=== PATIENT | female | born 1960 | race Caucasian/White ===

== ENCOUNTER 2017-08-18 07:43 | Emergency (ER) | payer BC, SELFPAY ==
[2017-08-18 07:44] VITALS: BP 140/76; PULSE 106; RESP 16; TEMP 36.7; O2SAT 99; BMI 25.2
--- NOTE | 2017-08-18 08:20 | RAD_ITS ---
STUDY: X-RAY - RIGHT FOOT CLINICAL: Female, 57 years old. Right foot pain, no known injury TECHNIQUE: 3 view(s) of the foot. COMPARISON: None. FINDINGS: Normal talus, calcaneus, and tarsal bones. Normal visualized subtalar, talonavicular, calcaneocuboid, tarsal and tarsometatarsal articulations. Normal metatarsi. Normal metatarsophalangeal joint of the great toe. Normal tibial and fibular sesamoid bones. Normal interphalangeal joint of the great toe. Normal phalanges of the great toe. Normal second through fifth metatarsophalangeal joints. Normal interphalangeal joints and phalanges of the lesser toes. The soft tissue structures are unremarkable. RAD/Foot min 3 Views IMPRESSION: Normal x-ray examination of the foot. Electronically Signed: Alex Driver DO at 8:53 EDT Tel , Service support ,
[2017-08-18] MEDS: Naproxen 500 MG Tablet PO (08:25)
--- NOTE | 2017-08-18 09:03 | ED.DCSUM_ITS ---
- ER Visit Summary Date of Service: 08/18/17 Chief Complaint: [] Right foot pain History of Present Illness: The patient is a 57 F [] complaining of right foot pain, atraumatic. Denies injury or increased physical activity. Denies hx of gout. Physical Examination: [] Mild pain on the right medial plantar surface of the foot. No signs of infection, erythema, warmth, bruising. Neurovascular intact distally with good cap refill to the toes. Test Results: [] X-rays right foot: Negative. Emergency Department Course and Treatment: [] Given naproxen orally for analgesia and right foot x-ray which was negative. Patient was encouraged to follow with her PCP and wear foot insoles. Treatment Plan: [] Follow-up with PCP. Disposition: [] Discharge, stable. Impression: [] Right foot pain This note was generated with [employer] dictation software. It may contain incorrect words, spelling, and punctuation that were not noted in review of the chart prior to signing ED Disposition - Plan for ED Patient: Chief Complaint: Lower Extremity Injury Referrals: Amisha Sifuentes [Primary Care Provider] -
--- NOTE | 2017-08-18 09:03 | ED.DEP ---
ED Disposition - Plan for ED Patient: Disposition: Home or Assisted Living Chief Complaint: Lower Extremity Injury Instructions: ED Sprain Foot Prescriptions: Naproxen 500 mg PO BID PRN PRN #20 tab PRN Reason: Pain Referrals: Amisha Sifuentes [Primary Care Provider] -
[2017-08-18 09:14] VITALS: PULSE 85; RESP 16; O2SAT 98
--- NOTE | 2017-08-18 09:15 | ED.RN ---
THIS NURSE REVIEWED D/C INSTRUCTIONS WITH PT. PT VERBALIZED UNDERSTANDING OF INSTRUCTIONS. PT DENIES FURTHER NEEDS OR QUESTIONS AT THIS TIME. PT AMBULATES FROM ROOM ON OWN WITHOUT ASSISTANCE FROM STAFF
== END 2017-08-18 09:16 | disposition home or self-care (01) ==
PROVIDERS: Emergency Provider Emergency Medicine
DX: M79.671 Pain in right foot (principal)
CPT/HCPCS: 73630; 99283

== ENCOUNTER 2017-11-01 14:47 | Emergency (ER) | payer BC, SELFPAY ==
[2017-11-01 14:49] VITALS: BP 119/72; PULSE 90; RESP 18; TEMP 36.3; O2SAT 95; BMI 23.2
--- NOTE | 2017-11-01 15:54 | ED.DCSUM_ITS ---
- ER Visit Summary Date of Service: 11/01/17 Chief Complaint: Back pain History of Present Illness: The patient is a 57 F presenting with back pain. She states that she has pain on both sides of her back and pain radiates down her left leg. She states yesterday she was making her bed and twisted and this caused her chronic back pain to flare up. She also does a lot of twisting while at work. She states that she did not injure her back at work. She is able to ambulate. She has no bowel or bladder incontinence. No numbness or weakness. Denies fever or other complaints. Physical Examination: Vitals are stable. Patient is afebrile. Alert no acute distress. HEENT exam is unremarkable. Neck is supple. Lungs are clear and equal bilaterally. Heart is regular rate and rhythm. Abdomen is soft nontender nondistended. Back: Bilateral paraspinal lumbar muscle tenderness, no midline tenderness Extremities are unremarkable. Skin is warm and dry. No focal neurologic deficit. Normal strength and sensation Remainder of exam is unremarkable. Emergency Department Course and Treatment: Patient is given Toradol, Norflex IM. She is given prescription for Naprosyn and Flexeril. Advised to follow-up with her primary care physician. Advised return to ED if worsening complaints. Disposition: Discharge home Impression: Acute on chronic back pain This note was generated with [employer] dictation software. It may contain incorrect words, spelling, and punctuation that were not noted in review of the chart prior to signing ED Disposition - Plan for ED Patient: Chief Complaint: Back Referrals: Care Physician,No Primary [Primary Care Provider] -
--- NOTE | 2017-11-01 15:54 | ED.DEP ---
ED Disposition - Plan for ED Patient: Chief Complaint: Back Instructions: ED Neck Back Pain General Prescriptions: Naproxen [Naprosyn] 500 mg PO BID PRN #20 tablet Cyclobenzaprine [Flexeril] 10 mg PO TID PRN #20 tablet PRN Reason: Muscle Spasm Referrals: Care Physician,No Primary [Primary Care Provider] - Lucio Gorman MD [NON-STAFF] -
[2017-11-01] MEDS: Orphenadrine 60 MG/2 ML Ampul IM (16:04)
[2017-11-01] MEDS: Ketorolac 60 MG/2 ML Vial IM (16:04)
[2017-11-01 16:10] VITALS: PULSE 85; RESP 18; O2SAT 99
== END 2017-11-01 16:32 | disposition home or self-care (01) ==
PROVIDERS: Emergency Provider Emergency Medicine
DX: M54.5 Low back pain (principal); G89.29 Other chronic pain; X50.1XXA Overexertion from prolonged static or awkward postures, initial encounter; Y93.9 Activity, unspecified; Y92.9 Unspecified place or not applicable; Z86.79 Personal history of other diseases of the circulatory system; Z72.0 Tobacco use
CPT/HCPCS: 96372; 99283

== ENCOUNTER → 2017-12-16 11:09 | Outpatient (CLI) | payer OTHER, SELFPAY ==
--- NOTE | 2017-12-16 11:12 | RAD_ITS ---
STUDY: X-RAY - RIGHT HAND REASON FOR EXAM: Female, 57 years old. Abrasion overlying the base of the fifth metacarpal. TECHNIQUE: 3 view(s) of the hand. COMPARISON: None. FINDINGS: Normal radiocarpal articulation. Normal distal radioulnar joint. Normal visualized carpal bones. Normal carpal articulations Normal carpometacarpal articulation of the thumb. Normal second through fifth carpometacarpal joints. Normal metacarpi. Normal metacarpophalangeal joint of the thumb. Normal interphalangeal joint of the thumb. Normal proximal and distal phalanges of the thumb. Normal metacarpophalangeal joints of the second through fifth fingers. Normal proximal and distal interphalangeal joints of the second through fifth fingers. Normal phalanges of the second through fifth fingers. The soft tissue structures are unremarkable. RAD/Hand Min 3 Views IMPRESSION: Normal x-ray examination of the hand. Electronically Signed: Luiz Crain MD at 11:28 EDT Tel [phone], Service support ,
== END ==
PROVIDERS: Family Provider Family Medicine; PCP Family Medicine; Visit Provider Physician Assistant Medical
DX: S60.221A Contusion of right hand, initial encounter (principal)
CPT/HCPCS: 73130

== ENCOUNTER 2018-06-05 20:05 | Emergency (ER) | payer BC, SELFPAY ==
[2018-06-05 20:06] VITALS: BP 153/78; PULSE 108; RESP 16; TEMP 37.2; O2SAT 96; BMI 24.6
[2018-06-05] MEDS: Benzonatate 100 MG Capsule PO (20:35)
[2018-06-05] MEDS: predniSONE 20 MG Tablet 40 MG PO (20:35)
--- NOTE | 2018-06-05 20:45 | RAD_ITS ---
STUDY: X-RAY CHEST REASON FOR EXAM: Female, 58 years old. Cold symptoms and cough TECHNIQUE: PA and lateral views of the chest. COMPARISON: 09/18/2013 FINDINGS: The lungs are clear and expanded. There is no demonstrated pleural abnormality. Normal size heart. Normal mediastinum and macie. Normal visualized pulmonary arteries. Normal visualized aortic arch and descending thoracic aorta. Normal visualized thoracic spine. Normal visualized ribs, clavicles, and shoulders. There is no demonstrated abnormality of the visualized soft tissue structures of the upper abdomen. RAD/Chest PA and Lateral IMPRESSION: Normal x-ray examination of the chest. Electronically Signed: Alex Driver DO at 21:00 EST Tel , Service support ,
--- NOTE | 2018-06-05 20:50 | CM.ED ---
Social Work Note Referral from RN for concerns with heat and electricity. Pt reports that her heat was recently turned off. Face to face with the pt and her daughter. Introduced self and role at [facility]. The pt reports that she has been heating her apartment with a generator as her electricity was recently turned off. She states that they do have two dogs, but they all wrap up in blankets. Claim she goes to her sisters during the day to get out of the cold and then she works 3rd shift and her daughter stays with family to get out of the cold. Daughter is an adult as well. Pt claims that she has AEP for an [place]. Educate to their neighbor to neighbor program as an additional resource that the income guideline is $50,312 annually and pt reports that she and her daughter together make approximately $43k. Encourage her to reach out to them as soon as possible for assistance. Also educate to [employer] and [employer] and the pt reports that both of them have denied to help her d/t income. Discuss that [employer] is also opening their gymnasium at night to provide retirement from the cold for individuals without heat or that are homeless. Pt being taken down for imaging at this time. Again strongly encourage her to reach out to [employer] at her earliest convenience, and no further needs expressed at this time. This specifications writer to continue to follow and assist as needed. PLAN: Discharge home with support of family. Alta Olivares, VARNISH INSPECTOR, JACQUE
[2018-06-05 20:58] VITALS: PULSE 94; RESP 20
[2018-06-05] MEDS: Ipratropium/Albuterol Sulfate 3 ML AMPUL.NEB INHALATION (20:58)
--- NOTE | 2018-06-05 21:18 | ED.DCSUM_ITS ---
- ER Visit Summary Date of Service: 06/05/18 Chief Complaint: Cough History of Present Illness: The patient is a 58 F who developed cough yesterday. She is bringing up white phlegm. She denies fever but has noted chills. She does feels if she is wheezing. She reports a known history of asthma or COPD. She does not use inhalers. Physical Examination: Vital signs gross unremarkable. Patient sitting upright in bed no acute distress. Head neck examination unremarkable. Heart is regular rate and rhythm. Lungs sounds are grossly clear. Abdomen is soft nontender. Test Results: Two-view chest x-ray unremarkable. Emergency Department Course and Treatment: Patient given DuoNeb treatment along with p.o. prednisone and Tessalon Perles. On repeat evaluation she does feel improved. She has better air movement on auscultation. She will be given prescription for albuterol inhaler, prednisone, and Tessalon Perles. Treatment Plan: [] Disposition: Discharge Impression: Viral URI with COPD flare This note was generated with [employer] dictation software. It may contain incorrect words, spelling, and punctuation that were not noted in review of the chart prior to signing ED Disposition - Plan for ED Patient: Chief Complaint: Cold Sx Referrals: Lucio Stock MD [Primary Care Provider] -
--- NOTE | 2018-06-05 21:18 | ED.DEP ---
ED Disposition - Plan for ED Patient: Disposition: Home or Assisted Living Chief Complaint: Cold Sx Instructions: ED URI Viral Prescriptions: Albuterol Inhaler [Ventolin Hfa] 1 - 2 puff INHALATION Q4H PRN PRN #1 inhaler PRN Reason: Wheezing Benzonatate [Tessalon Perle] 200 mg PO TID PRN PRN #20 capsule PRN Reason: Cough predniSONE tablet 40 mg PO DAILY #10 tablet Referrals: Lucio Stock MD [Primary Care Provider] - 1 Week
[2018-06-05 21:31] VITALS: BP 102/69; PULSE 91; RESP 18; O2SAT 97
--- OUTSIDE RECORDS SUMMARY | 2018-08-08 05:33 | XMS RPT_ITS ---
:1960 Author Organization OH[facility] Care Team Providers Name Role Phone JYOTI LARSEN (BATCH ATTENDANT) Attending Unavailable JULES SANTANA (PA) Referring Unavailable JYOTI LARSEN (BATCH ATTENDANT) Referring Unavailable SHANTE PFEIFFER (RD) Attending Unavailable JYOTI LARSEN (BATCH ATTENDANT) Referring Unavailable PEMA SIMPSON) Attending Unavailable JYOTI LARSEN (BATCH ATTENDANT) Referring Unavailable JYOTI LARSEN (BATCH ATTENDANT) Referring Unavailable JYOTI LARSEN (BATCH ATTENDANT) Attending Unavailable JYOTI LARSEN (BATCH ATTENDANT) Referring Unavailable HAMAXIME, JYOTI (BATCH ATTENDANT) Referring Unavailable BAILEY HOOD ([facility]) Attending Unavailable PEMA SIMPSON) Referring Unavailable PEMA SIMPSON () Attending Unavailable PEMA SIMPSON () Referring Unavailable JYOTI LARSEN (BATCH ATTENDANT) Referring Unavailable OZ INIGUEZ Attending Unavailable BAILEY HOOD ([facility]) Referring Unavailable BAILEY HOOD ([facility]) Referring Unavailable SHEILA CADET Attending Unavailable BAILEY HOOD ([facility]) Referring Unavailable Pema Stock Primary Care Unavailable Trudy Leon Attending Unavailable CLINIC, [facility] FREE Primary Care Unavailable Ana Winslow Attending Unavailable Primay Care Physicia, No Primary Care Unavailable Farida Del Rosario Attending Unavailable Gabby Espino Attending Unavailable Primay Care Physicia, No Referring Unavailable Gabby Espino Attending Unavailable Gabby Espino Referring Unavailable Pema Stock Primary Care Unavailable Gabby Espino Attending Unavailable PROBLEMS PROBLEMS DATE TYPE CONDITION / CODE ATTENDING STATUS SOURCE 03/06/2018 Active Unknown / SHEILA CADET Active [place] UNK(Unknown) [facility] Main [place] Repository 02/24/2018 Active Encounter for Active [place] screening mammogram [facility] for malignant [place] neoplasm of breast / Repository Z12.31(ICD-10) 09/28/2017 Active Type 2 diabetes NA Active [place] mellitus without Clinic Main complications / [place] E11.9(ICD-10) Repository 02/10/2018 Active Encounter for Active [place] screening for other Clinic Main viral diseases / [place] Z11.59(ICD-10) Repository 01/31/2018 Active Other microscopic NA Active [place] hematuria / Clinic Main R31.29(ICD-10) [place] Repository 01/26/2018 Active Nausea / NA Active [place] R11.0(ICD-10) Clinic Main [place] Repository 01/26/2018 Active Right upper quadrant NA Active [place] pain / Clinic [facility] R10.11(ICD-10) [place] Repository 12/27/2017 Active Abnormal levels of NA Active [place] other serum enzymes Clinic Main / R74.8(ICD-10) [place] Repository 09/28/2017 Active Mixed hyperlipidemia NA Active [place] / E78.2(ICD-10) Clinic Main [place] Repository 12/16/2017 Unknown R52 - Pain, Kenzie, Active [place] unspecified / [facility] R52(ICD-10) Hospital Repository 12/16/2017 Unknown Z23 - Encounter for [place], Active [place] immunization / [facility] Z23(ICD-10) Hospital Repository 09/27/2017 Active Essential (primary) NA Active [place] hypertension / [facility] Main I10(ICD-10) [place] Repository 09/27/2017 Active Prediabetes / NA Active [place] R73.03(ICD-10) Clinic Main [place] Repository 09/02/2017 Unknown M79.671 - Pain in Ahmed, Rami Active [place] right foot / [facility] M79.671(ICD-10) Hospital Repository PROCEDURES PROCEDURES No Procedure Records FoundRESULTS RESULTS EMERGENCY DEPARTMENT Observed: 2018 Status: F Source: [place] SUMMARY 10:[address] [facility] REPOSITORY [facility] Medical Records Department [address] [place] [address] Emergency Department Summary 06/05/187 MR#: [id number] Acct: [id number] Name: SRAVANI HOLLOWAY Rep #: [id number] : 1960 58 From: Trudy Leon MD PCP: Pema Stock MD Status: DEP ER - ER Visit Summary Date of Service: 06/05/18 Chief Complaint: Cough History of Present Illness: The patient is a 58 F who developed cough yesterday. She is bringing up white phlegm. She denies fever but has noted chills. She does feels if she is wheezing. She reports a known history of asthma or COPD. She does not use inhalers. Physical Examination: Vital signs gross unremarkable. Patient sitting upright in bed no acute distress. Head neck examination unremarkable. Heart is regular rate and rhythm. Lungs sounds are grossly clear. Abdomen is soft nontender. Test Results: Two-view chest x-ray unremarkable. Emergency Department Course and Treatment: Patient given DuoNeb treatment along with p.o. prednisone and Tessalon Perles. On repeat evaluation she does feel improved. She has better air movement on auscultation. She will be given prescription for albuterol inhaler, prednisone, and Tessalon Perles. Treatment Plan: [] Disposition: Discharge Impression: Viral URI with COPD flare This note was generated with [employer] dictation software. It may contain incorrect words, spelling, and punctuation that were not noted in review of the chart prior to signing ED Disposition - Plan for ED Patient: Chief Complaint: Cold Sx Referrals: Lucio Stock MD [Primary Care Provider] - What to do if you have Problems For any increased pain, shortness of breath, bleeding, nausea or vomiting, chest pain, or any unexpected problems, contact your Primary Care Provider. Call [facility] ([phone]) or report to the closest Emergency Room. Call 911 if necessary. 06/05/182212 <Electronically signed by Trudy Leon MD> Date Trudy Leon MD Cosigner Signature (If Indicated): Date CC: Pema Stock MD DISCHARGE INSTRUCTION Observed: 2018 Status: F Source: [place] 9:[address] [facility] REPOSITORY [facility] Medical Records Department [address] [place] [address] Discharge Instruction 06/05/182117 MR#: [id number] Acct: [id number] Name: SRAVANI HOLLOWAY Rep #: [id number] : 1960 58 From: Trudy Leon MD PCP: Pema Stock MD Status: REG ER ED Disposition - Plan for ED Patient: Disposition: Home or Assisted Living Chief Complaint: Cold Sx Instructions: ED URI Viral Prescriptions: Albuterol Inhaler [Ventolin Hfa] 1 - 2 puff INHALATION Q4H PRN PRN #1 inhaler PRN Reason: Wheezing Benzonatate [Tessalon Perle] 200 mg PO TID PRN PRN #20 capsule PRN Reason: Cough predniSONE tablet 40 mg PO DAILY #10 tablet Referrals: Lucio Stock MD [Primary Care Provider] - 1 Week What to do if you have Problems For any increased pain, shortness of breath, bleeding, nausea or vomiting, chest pain, or any unexpected problems, contact your Primary Care Provider. Call [facility] ([phone]) or report to the closest Emergency Room. Call 911 if necessary. 06/05/182120 <Electronically signed by Trudy Leon MD> Date Trudy Leon MD Cosigner Signature (If Indicated): Date CC: Pema Stock MD CHEST PA AND LATERAL Observed: 2018 Status: F Source: [place] 8:[address] [facility] REPOSITORY [facility] Imaging Services [address] [place] [address] Chest PA and Lateral MR#: [id number] Acct: [id number] Name: SRAVANI HOLLOWAY Rep #: [id number] : 1960 F 58 From: Alex Driver DO PCP: Pema Stock MD Status: REG ER Study: Chest PA and Lateral Date of Exam: 06/05/18 Exam# [id number] Ordering Dr: Trudy Leon MD STUDY: X-RAY CHEST REASON FOR EXAM: Female, 58 years old. Cold symptoms and cough TECHNIQUE: PA and lateral views of the chest. COMPARISON: 09/18/2013 FINDINGS: The lungs are clear and expanded. There is no demonstrated pleural abnormality. Normal size heart. Normal mediastinum and macie. Normal visualized pulmonary arteries. Normal visualized aortic arch and descending thoracic aorta. Normal visualized thoracic spine. Normal visualized ribs, clavicles, and shoulders. There is no demonstrated abnormality of the visualized soft tissue structures of the upper abdomen. RAD/Chest PA and Lateral IMPRESSION: Normal x-ray examination of the chest. Electronically Signed: Alex Driver DO at 21:00 EST Tel , Service support , CC: Pema Stock MD; Trudy Leon MD Candy Rolling Machine Operator: Signed PROGRESS Observed: 03/09/2018 Status: COMPLETED Source: [place] 9:19 AM [facility] REPOSITORY HNO ID: [id number] Author: Sheila Cadet Service: (none) Author Type: Physician Type: Progress Notes Filed: 03/09/2018 9:19 AM Note Text: Can you please let the patient know that her biopsy was benign, and the endocervical sampling only showed low grade changes that do not need treatment. She is to have cotesting in 1 year. Thanks! SURGICAL PATHOLOGY Observed: 03/06/2018 Status: F Source: [place] 2:53 PM [facility] REPOSITORY Specimen originated from [facility] Specimen #: [id number] Submitting Physician: SHEILA CADET DO FINAL DIAGNOSIS 1. Cervix, biopsy at 12 o'clock (A) - Benign squamous mucosa. 2. Endocervix, curettings (B) - Low-grade squamous intraepithelial lesion (SHOSHANA-1). - Endocervical glandular components are not seen. BY/diogenes 03/08/2018 Silverio Guillermo M.D. Ph.D. (Electronic Signature) SPECIMEN SUBMITTED A: CERVIX, BIOPSY 12 O'CLOCK B: ENDOCERVICAL, CURETTINGS CLINICAL DATA abnormal pap GROSS DESCRIPTION A. Received in formalin is a segment of moise, crescent, mucosal covered soft tissue measuring 0.3 x 0.2 x 0.2 cm. Totally submitted in one cassette. B. Received in formalin are multiple moise, soft feathery segments of tissue admixed with mucinous material aggregating to one is 1.1 x 0.2 x 0.1 cm. Totally submitted in one cassette. Gross examination performed at [facility], [address] [place] [address] 03/08/2018 2:49:47 AM Date of Report: 03/08/2018 Date of Procedure: 03/06/2018 Date of Receipt: 03/07/2018 Submitted by: SHEILA CADET DO Location: [facility] Diagnostic interpretation performed at [place] [address]. CNOV Observed: 03/06/2018 Status: COMPLETED Source: [place] 2:45 PM [facility] REPOSITORY Office Visit (WOOB) SRAVANI HOLLOWAY ([id number]) 1960 F Date Time Provider Department 03/06/18 2:45 PM SHEILA CADET During your visit today, we recorded the following information about you: Blood pressure Weight 94/60 59.3 kg Sheila Cadet MD 03/06/2018 3:52 PM Signed Sravani Amie is a 57 year old female who presents today for a colposcopy. Her last pap smear was ASCUS with positive HPV from January 2018. Patient has a history of abnormal pap: No. She has had prior treatment: none. test: negative UNIVERSAL PROTOCOL / SAFETY CHECKLIST Procedure to be performed: Colposcopy Sign in Communication: Completed Time Out: Team Confirms the Correct Patient, Correct Procedure, Correct Site and Site Marking, Correct Position (if applicable), Prep and Dry Time (if applicable). Affirmation of Time Out: N/A Sign Out Discussion: Completed PROCEDURE: EXTERNAL GENITALIA: Normal in appearance without lesions VAGINA: Normal in appearance without lesions CERVIX: Speculum placed in vagina and excellent visualization of cervix achieved. Cervix swabbed x 3 with 3% acetic acid solution. Cervix grossly normal. Squamocolumnar junction visualized. No acetowhite changes, punctations, mosaicism or atypical vasculature noted. BIOPSY: Done at 12:00 ECC: done HEMOSTASIS: Obtained with silver nitrate Procedure Summary: Patient tolerated procedure well and colposcopy was adequate. ASSESSMENT: HPV effect PLAN: Specimens labeled and sent to Pathology. Will notify patient of results in 1-2 weeks. Post-procedure instructions reviewed and written material given to the patient. DO Clara Allen MA 03/06/2018 2:13 PM Signed YOUR RECOVERY It may take a few weeks for your cervix to heal. While your cervix heals, you may have: - Vaginal bleeding (less than a normal menstrual period) - Mild cramping - A brown-black vaginal discharge (similar to coffee grounds) which is a result of the paste used to help stop bleeding from the procedure Do NOT put anything in the vagina for 1 week after your colposcopy if your doctor does a biopsy of your cervix. This includes sex, tampons, and douches. If you have any discomfort, you may take an over the counter pain medication (motrin, advil, ibuprofen, tylenol, etc). If this does not relieve your discomfort, contact your doctor's office for a prescription strength pain medication. It is okay to wear a sanitary pad until the discharge and spotting stops. RISKS Although problems seldom occur with colposcopy, there can be some complications. You may feel faint during and shortly after the procedure as well as have some bleeding and vaginal discharge after the procedure. There is also a risk of infection after the procedure. These complications are rare and can be easily treated. You should contact you doctor is you have any of the following: - Heavy bleeding (more than your normal period) - Bleeding with clots - Severe abdominal pain - Fever (more than 100.4F) - Foul smelling vaginal discharge RESULTS If a biopsy was taken, we will have the results of your biopsy in 1-2 weeks. If you do not hear the results of your biopsy after 2 weeks, please contact your physicians office for the results. Depending on the biopsy results, your doctor will determine your follow up plan which may include further testing or treatments. STAYING HEALTHY After the procedure, you will need to see your doctor for follow up visits during the year. At these visits your doctor will check the health of your cervix with a pap smear. After three normal pap smears, your doctor will allow you to return to having exams once a year. If you have another abnormal pap smear, you may need closer follow up for longer or you may need additional treatment. By making a few lifestyle changes after the procedure, you can help protect the health of your cervix: - Have regular pelvic exams and pap smears as ordered by your doctor. - Stop smoking as smoking increases your risk of developing a cancer of the cervix - If you have more than one sexual partner, limit your number of partners and use condoms to reduce your risks of STDs. If you have any additional questions, please contact your doctor's office. Referring Provider: BAILEY HOOD (BATCH ATTENDANT) [[id number]] Allergies As of Date: 03/06/2018 (No Known Allergies) Date Reviewed: 03/06/2018 Reviewed by: Clara Castro - Fully Assessed Reason for Visit: Colposcopy [1551] Primary Visit Diagnosis:ASCUS with positive high risk HPV cervical [R87.610, R87.810] Order(s):HCG QUAL UR B/O [8339908] Order #: [id number] COLPOSCOPY PROCEDURE (W NOTE) [PRO96] Order #: [id number] SURGICAL PATHOLOGY [2411573] Order #: [id number] Prescriptions as of 03/06/2018 Sig: LANCETS Test blood sugar(s) 1 time da* BLOOD SUGAR DIAGNOSTIC STRIPS Test blood sugar(s) 1 time da* LISINOPRIL 5 MG TABLET Take 1 tablet by mouth once d* ATORVASTATIN 20 MG TABLET Take 1 tablet by mouth daily * METFORMIN 500 MG TABLET Take 1 tablet by mouth twice * MELOXICAM 15 MG TABLET TAKE 1 TABLET BY MOUTH ONCE D* OMEPRAZOLE 20 MG CAPSULE,HANS* TAKE 1 CAPSULE BY MOUTH DAILY* TYLENOL ORAL Take by mouth. Problem List As Of Date 03/06/2018 Noted Resolved Arthritis [M19.90] INVALID FOR* Postmenopausal bleeding [N95.0] INVALID FOR* Controlled type 2 diabetes mellitus without com*INVALID FOR* Hyperlipidemia, mixed [E78.2] INVALID FOR* HTN (hypertension) [I10] Hyperlipidemia [E78.5] ASCUS with positive high risk HPV cervical [R87*INVALID FOR* More... Other instructions from your clinician: YOUR RECOVERY It may take a few weeks for your cervix to heal. While your cervix heals, you may have: - Vaginal bleeding (less than a normal menstrual period) - Mild cramping - A brown-black vaginal discharge (similar to coffee grounds) which is a result of the paste used to help stop bleeding from the procedure Do NOT put anything in the vagina for 1 week after your colposcopy if your doctor does a biopsy of your cervix. This includes sex, tampons, and douches. If you have any discomfort, you may take an over the counter pain medication (motrin, advil, ibuprofen, tylenol, etc). If this does not relieve your discomfort, contact your doctor's office for a prescription strength pain medication. It is okay to wear a sanitary pad until the discharge and spotting stops. RISKS Although problems seldom occur with colposcopy, there can be some complications. You may feel faint during and shortly after the procedure as well as have some bleeding and vaginal discharge after the procedure. There is also a risk of infection after the procedure. These complications are rare and can be easily treated. You should contact you doctor is you have any of the following: - Heavy bleeding (more than your normal period) - Bleeding with clots - Severe abdominal pain - Fever (more than 100.4F) - Foul smelling vaginal discharge RESULTS If a biopsy was taken, we will have the results of your biopsy in 1-2 weeks. If you do not hear the results of your biopsy after 2 weeks, please contact your physicians office for the results. Depending on the biopsy results, your doctor will determine your follow up plan which may include further testing or treatments. STAYING HEALTHY After the procedure, you will need to see your doctor for follow up visits during the year. At these visits your doctor will check the health of your cervix with a pap smear. After three normal pap smears, your doctor will allow you to return to having exams once a year. If you have another abnormal pap smear, you may need closer follow up for longer or you may need additional treatment. By making a few lifestyle changes after the procedure, you can help protect the health of your cervix: - Have regular pelvic exams and pap smears as ordered by your doctor. - Stop smoking as smoking increases your risk of developing a cancer of the cervix - If you have more than one sexual partner, limit your number of partners and use condoms to reduce your risks of STDs. If you have any additional questions, please contact your doctor's office. Disposition: Return in about 3 months (around 06/06/2018) for test of cure. Follow-up and Disposition History Recorded Encounter Status:Closed by SHEILA CADET MD on 03/06/18 PROGRESS Observed: 03/06/2018 Status: COMPLETED Source: [place] 2:13 PM [facility] REPOSITORY O ID: [id number] Author: Sheila Cadet Service: (none) Author Type: Physician Type: Progress Notes Filed: 03/06/2018 3:52 PM Note Text: Sravani Holloway is a 57 year old female who presents today for a colposcopy. Her last pap smear was ASCUS with positive HPV from January 2018. Patient has a history of abnormal pap: No. She has had prior treatment: none. test: negative UNIVERSAL PROTOCOL / SAFETY CHECKLIST Procedure to be performed: Colposcopy Sign in Communication: Completed Time Out: Team Confirms the Correct Patient, Correct Procedure, Correct Site and Site Marking, Correct Position (if applicable), Prep and Dry Time (if applicable). Affirmation of Time Out: N/A Sign Out Discussion: Completed PROCEDURE: EXTERNAL GENITALIA: Normal in appearance without lesions VAGINA: Normal in appearance without lesions CERVIX: Speculum placed in vagina and excellent visualization of cervix achieved. Cervix swabbed x 3 with 3% acetic acid solution. Cervix grossly normal. Squamocolumnar junction visualized. No acetowhite changes, punctations, mosaicism or atypical vasculature noted. BIOPSY: Done at 12:00 ECC: done HEMOSTASIS: Obtained with silver nitrate Procedure Summary: Patient tolerated procedure well and colposcopy was adequate. ASSESSMENT: HPV effect PLAN: Specimens labeled and sent to Pathology. Will notify patient of results in 1-2 weeks. Post-procedure instructions reviewed and written material given to the patient. Sheila DO FAN CadetO Observed: 02/24/2018 Status: COMPLETED Source: [place] 5:35 PM [facility] REPOSITORY HNO ID: [id number] Author: Mammography Coordinator Service: (none) Author Type: Physician Type: Letter Filed: 02/27/2018 11:34 PM Note Text: February 24, 2018 PID: [id number] Sravani Holloway [address] [place] [address] Dear Ms. Holloway, We are pleased to inform you that the results of your recent breast imaging exam on 02/24/2018 are normal. Early detection of cancer is very important. We also understand recommendations regarding breast cancer screening are controversial. Please discuss with your primary care provider which strategy is best for you and whether a mammogram is right for you. Your imaging studies and report will be kept on file at [facility] as part of your permanent medical record and are available for your continuing care. Thank you for allowing us to help in meeting your health care needs. Sincerely, Dr. Montez Interpreting Radiologist [facility] (Normal over 40) [facility] SCREENING Observed: 02/24/2018 Status: F Source: [place] 2:34 PM [facility] REPOSITORY * * *Final Report* * * DATE OF EXAM: Feb 24 2018 2:34PM WO 0581 - [facility] SCREENING / PROCEDURE REASON: Encounter for screening mammogram for breast cancer * * * * Physician Interpretation * * * * RESULT: #[id number] - [facility] SCREENING BILATERAL DIGITAL SCREENING MAMMOGRAM WITH CAD: 02/24/2018 HISTORY: Encounter For Screening Mammogram For Breast Cancer /Screening Mammogram - patient reports NO breast symptoms /baseline mammogram. RESULT: TECHNIQUE: The study was acquired using full field digital technology and interpreted from soft copy. Current study was also evaluated with a Computer Aided Detection (CAD). No prior exams were available for comparison. There are scattered fibroglandular elements in both breasts. No significant masses, calcifications, or other findings are seen in either breast. IMPRESSION: NEGATIVE There is no mammographic evidence of malignancy.A 1 year screening mammogram is recommended. Ashley Montez M.D., jr/clarisa:02/24/2018 17:35:39 Program Engineer: Ute URBINA)(Aristeo), [facility] letter sent: Normal over 40 Mammogram BI-RADS: 1 Negative Multiple national specialty organizations have released breast cancer screening guidelines for women at average risk for developing breast cancer - guidelines that are based on both evidence and opinion, yet differ on when to start and how often to screen for breast cancer. With representation from Breast Imaging, Internal Medicine, Women's Health, Family Medicine, and Medical/Surgical Oncology, the [facility] has carefully reviewed the data and reached the following consensus: 1) All women should engage in shared decision-making with their providers to decide when to start and how often to screen; 2) All women should have the opportunity to start screening mammography at age 40; 3) For women ages 45-55, we recommend annual screening mammograms; 4) For women ages 55 and over, we support both the transition from an annual to a biennial interval if this aligns more with patient's values and preferences, or continuation with annual screening; 5) All women should discuss with their providers when to stop screening mammograms. Candy Rolling Machine Operator: Clarisa Transcribe Date/Time: Feb 24 2018 2:21P Dictated by: ASHLEY MONTEZ MD This examination was interpreted and the report reviewed and electronically signed by: ASHLEY MONTEZ MD on Feb 24 2018 5:35PM EST [id number] URINALYSIS WITH Collected: 02/10/2018 Status: F Source: [facility] 5:03 PM [facility] REPOSITORY TYPE CODE TESTS RESULT OUT OF RANGE REFERENCE UNITS LAB UCOL Yellow Color Abnormal Pamela Alert LAB [facility] Clear Clarity Abnormal Cloudy Alert LAB UGLUC Negative mg/dL Glucose, Urine Negative LAB UBIL Negative Bilirubin, Urine Negative LAB [facility] Negative Ketones, Urine Negative LAB [facility] 1.005-1.030 Specific [place], Ur 1.028 LAB UHGB Negative Abnormal Hemoglobin/Blood, 1+ Alert Ur LAB [facility]PH 4.5-8.0 pH 5.0 LAB UPROT Negative mg/dL Protein, Abnormal Urine 30 Alert LAB UUROB Normal Abnormal Urobilinogen Elevated Alert LAB UNITR Negative Nitrites Negative LAB ULKEST Negative Leukest Abnormal 1+ Alert LAB UCOM Comments SEE COMMENT Result Comment: N/A LAB UMCOM Urine SEE Jerry Comment COMMENT Result Comment: Interpret results with caution. Urine preservative tube not filled to the required volume. The BD Vacutainer Urinalysis preservative Plus tube must be filled with at least 7 mL and not more than 9 mL of urine in order to maintain the proper additive to urine ratio. LAB UWBC 0-5 /HPF Abnormal WBC Alert 11-25 LAB URBC 0-3 /HPF Abnormal RBC Alert 6-10 LAB UEPI /HPF Epithelial Cells SEE COMMENT Result Comment: Few Squamous Epithelial Cells LAB UCRYS 0 /HPF Abnormal Alert Crystals SEE COMMENT Result Comment: Few Calcium Oxalate Crystal Performed By: #### UAWMIC #### [facility] [address] [place], [place] [address] ALBUMIN/CREAT RATIO Collected: 02/10/2018 Status: F Source: MODE 5:03 PM [facility] REPOSITORY TYPE CODE TESTS RESULT OUT OF REFERENCE UNITS RANGE LAB UCRR 20-300 mg/dL Creatinine,Ur 206.1 ine,Ran LAB UALBR 0.0-23.0 mg/L High Albumin Urine 23.6 Random LAB UALBCR 0-30 mg/g Albumin/Creat 11 Ratio Result Comment: 30 to 300 mg/g indicates an increased risk for diabetic nephropathy. Greater than 300 mg/g is consistent with clinical nephropathy. (Am J Kidney Disease 1995, 25:107) Performed By: #### UACR #### [facility] [address] [place], [place] [address] COMP METABOLIC PANEL Collected: 02/10/2018 Status: F Source: MODE 5:00 PM [facility] REPOSITORY TYPE CODE TESTS RESULT OUT OF REFERENCE UNITS RANGE LAB TP 6.3-8.0 g/dL Protein, Total 7.3 LAB ALB 3.9-4.9 g/dL Albumin 4.2 LAB CA 8.5-10.2 mg/dL Calcium, Total 9.2 LAB TBIL 0.2-1.3 mg/dL Bilirubin, Total 0.3 LAB ALKP 34-123 U/L Alkaline High Phosphatase 136 LAB AST 13-35 U/L AST 22 LAB GLU 74-99 mg/dL Glucose High 110 Result Comment: The [place] Diabetes Association (ADA) provides guidance for cutoff values for fasting glucose and random glucose. The ADA defines fasting as no caloric intake for at least 8 hours. Fas ting plasma glucose results between 100 to 125 mg/dL indicate increased risk for diabetes (prediabetes). Fasting plasma glucose results greater than or equal to 126 mg/dL meet the criteria for diagnosis of diabetes. In the absence of unequivocal hyperglycemia, results should be confirmed by repeat testing. In a patient with classic symptoms of hyperglycemia or hyperglycemic crisis, random plasma glucose results greater than or equal to 200 mg/dL meet the criteria for diagnosis of diabetes. Reference: Standards of Medical Care in Diabetes 2016, [place] Diabetes Association. Diabetes Care. 2016.39(Suppl 1). LAB BUN 7-21 mg/dL BUN 18 LAB CRET 0.58-0.96 mg/dL Creatinine 0.73 LAB NA 136-144 mmol/L Sodium 139 LAB K 3.7-5.1 mmol/L Potassium 4.1 LAB CL 97-105 mmol/L Chloride 102 LAB CO2 22-30 mmol/L CO2 22 LAB AGAP 9-18 mmol/L Anion Gap 15 LAB ALT 7-38 U/L ALT 17 LAB GFRAA eGFR- Amer. >60 LAB GFRNAA . eGFR-All Other Races >60 Result Comment: eGFR (Estimated GFR) Units of measure: mL/min/1.73 meters squared eGFR is derived from the reexpressed MDRD Study equation using the following parameters: serum creatinine, age, gender and race. The creatinine assay has been calibrated to be traceable to IDMS. An eGFR <60 mL/min/1.73m2 for >3 months is consistent with chronic kidney disease. Refer to KDOQI guidelines for clinical interpretation. In patients with unstable renal function, e.g. those with acute kidney injury, the eGFR may not accurately reflect actual GFR. Performed By: #### CMP, AHCV, HBA1C #### [facility] [address] [place], [place] [address] HEPATITIS C AB IA Collected: 02/10/2018 Status: F Source: MODE 5:00 PM [facility] REPOSITORY TYPE CODE TESTS RESULT OUT OF REFERENCE UNITS RANGE LAB AHCV Negative Hepatitis C Ab Negative IA Performed By: #### CMP, AHCV, HBA1C #### [facility] [address] [place], [place] [address] HEMOGLOBIN A1C Collected: 02/10/2018 Status: F Source: MODE 5:00 PM [facility] REPOSITORY TYPE CODE TESTS RESULT OUT OF REFERENCE UNITS RANGE LAB HGBA1C 4.3-5.6 % High Hemoglobin A1c 6.4 LAB HBA0 mg/dL Est. Average Glucose 137 Result Comment: eAG: (Estimated average glucose) is a calculated value from HgbA1c and is insurance verification representative of the average blood glucose level in the last 2-3 month period. Performed By: #### CMP, AHCV, HBA1C #### [facility] [address] [place], [place] [address] PROGRESS Observed: 02/10/2018 Status: COMPLETED Source: MODE 4:21 PM [facility] [place] REPOSITORY HNO ID: [id number] Author: Pema Murillo) Tatiana Service: (none) Author Type: Physician Type: Progress Notes Filed: 02/12/2018 3:20 PM Note Text: Chief Complaint Patient presents with: Recheck HPI Sravani Holloway is a 57 year old female who presents here today for diabetes follow up. Here today with daughter. At last OV we started patient on metformin for A1C of 6.8 and referred to DM educator, whom she has not followed up with yet. Discussed glucometer use at home, agreeable to checking fasting sugars daily. Will need rx to local pharmacy. Also discussed need for ANDREW inhibitor, urine studies, and foot exam today. Previously seen by BO Larsen for abdominal pain which patient states is still present. Labs and imaging studies have been negative for obvious cause. Referred to SIZE MARKER as her CT abd/pelvis showed possible abnormality in vagina. Thought to be tampon, which patient states was not in place. SIZE MARKER referral today yielded no obvious cause for this finding. Scheduled for US of pelvis and pap obtained. Discussed referral to GI today which she is agreeable with. Needs f/u UA for microscopic hematuria. Due for pneumovax and hep C screening. Past medical history, appointments, medications, allergies reviewed. Previous Medical History PAST MEDICAL HISTORY Diagnosis Date - Diabetes mellitus, type II (HCC) - GERD (gastroesophageal reflux disease) - HTN (hypertension) - Hyperlipidemia - Plantar fasciitis Previous Surgical History PAST SURGICAL HISTORY Procedure Laterality Date - NONE Family History FAMILY HISTORY Problem Relation Age of Onset - Hyperlipidemia Mother - Diabetes Sister - Diabetes Sister - Diabetes Brother Patient Allergies ALLERGIES No Known Allergies Current Medications Current Outpatient Prescriptions on File Prior to Visit: atorvastatin (LIPITOR) 20 mg tablet Take 1 tablet by mouth daily at bedtime. For cholesterol. metFORMIN (GLUCOPHAGE) 500 mg tablet Take 1 tablet by mouth twice daily with meals. . meloxicam (MOBIC) 15 mg tablet TAKE 1 TABLET BY MOUTH ONCE DAILY X 2 WEEKS THEN DAILY NEEDED FOR PAIN TAKE WITH FOOD omeprazole (PRILOSEC) 20 mg capsule TAKE 1 CAPSULE BY MOUTH DAILY BEFORE BREAKFAST. 1/2 HR BEFORE MEAL. ACETAMINOPHEN (TYLENOL ORAL) Take by mouth. No current facility-administered medications on file prior to visit. Social History Social History Marital status: Single Spouse name: Years of education: Number of children: 4 Occupational History Occupation Employer Comment [employer] Social History Main Topics Smoking status: Current Every Day Smoker Packs/day: 0.00 Years: 0.00 Types: Cigarettes Last attempt to quit: 12/29/2016 Smokeless tobacco: Never Used Comment: pt states she is currently quitting Alcohol use: Yes Comment: very rare Drug use: No Sexual activity: Not Currently Review of Symptoms REVIEW OF SYSTEMS GENERAL: admits to feeling hot and chills RESPIRATORY: Negative for cough, hemoptysis, wheezing, COPD, dyspnea or shortness of breath CARDIOVASCULAR: Negative for chest pain, leg swelling, hypertension, CHF or palpitations GI: No nausea, vomiting, or diarrhea SKIN: Negative for lesions, rash, and itching EXAM: BP 122/64 (BP Site: Right Arm, BP Position: Sitting, BP Cuff Size: Regular Adult) Pulse 84 Resp 18 Wt 59.4 kg (131 lb) BMI 24.11 kg/m? General Appearance: Well appearing, alert, in no acute distress, well-hydrated, well nourished.. Skin: Skin color, texture, turgor normal, no suspicious rashes or lesions. Lungs: Lungs clear to auscultation. No wheezing, rhonchi, rales. Heart: RRR without murmur, gallop, or rubs. No ectopy. Abdomen: Abdomen soft, mild diffuse tenderness without guarding or rebound. Bowel sounds normal. No masses, organomegaly. Extremities: No deformities, edema, skin discoloration, clubbing or cyanosis. Good capillary refill. . Feet: Shoes and socks removed, No deformities, ulcers, calluses, normal distal pulses and sensitive to 10 gm monofilament Health Maintenance List URINE ALBUMIN:CREATININE RATIO due on 1972 DILATED RETINAL EXAM due on 1972 DIABETIC FOOT EXAM due on 1972 ONE PNEUMOVAX PRIOR TO AGE 65 due on 1978 BP CONTROLLED (<130/80) due on 1980 HEPATITIS C SCREENING due on 2006 COLORECTAL CANCER SCREENING,SEE MODIFIER due on 2012 INFLUENZA(1) due on 01/14/2018 PAP EVERY 5 YEARS due on 03/29/2018 HPV EVERY 5 YEARS due on 03/29/2018 HBA1C due on 03/30/2018 MAMMOGRAM due on 12/26/2018 LDL CHOLESTEROL due on 12/26/2018 ANNUAL PCP TEAM CHRONIC DISEASE VISIT due on 01/13/2019 DTAP,TDAP,TD(2 - Td) due on 12/20/2027 Data reviewed Component Latest Ref Rng AND Units 09/27/2017 12/26/2017 Protein, Total 6.3 - 8.0 g/dL 6.9 7.2 Albumin 3.9 - 4.9 g/dL 4.5 4.4 Calcium 8.5 - 10.2 mg/dL 9.9 Bilirubin, Total 0.2 - 1.3 mg/dL 0.3 0.4 Alkaline Phosphatase 32 - 117 U/L 140 (H) 165 (H) AST 13 - 35 U/L 25 22 Glucose 74 - 99 mg/dL 124 (H) BUN 7 - 21 mg/dL 17 Creatinine 0.58 - 0.96 mg/dL 0.72 Sodium 136 - 144 mmol/L 142 Potassium 3.7 - 5.1 mmol/L 3.9 Chloride 97 - 105 mmol/L 101 CO2 22 - 30 mmol/L 26 Anion Gap 9 - 18 mmol/L 15 ALT 7 - 38 U/L 22 22 eGFR- >60 eGFR-All Other Races . >60 Cholesterol, Total <200 mg/dL 328 (H) 260 (H) Triglyceride <150 mg/dL 189 (H) 149 HDL Cholesterol >39 mg/dL 54 52 LDL Cholesterol <100 mg/dL 236 (H) 178 (H) Non HDL Cholesterol <130 mg/dL 274 (H) 208 (H) Fasting Time hrs 5 8 VLDL Cholesterol <30 mg/dL 38 (H) 30 (H) TC:HDL Ratio <5.10 6.07 (H) 5.00 LDL:HDL Ratio <2.54 4.37 (H) 3.42 (H) Bilirubin, Conjug <0.2 mg/dL <0.2 Hemoglobin A1C 4.3 - 5.6 % 6.8 (H) Estimated Average Glucose mg/dL 148 CK 42 - 196 U/L 150 GGT 6 - 46 U/L 169 (H) ASSESSMENT/PLAN: 1. Controlled type 2 diabetes mellitus without complication, without long-term current use of insulin (HCC) - ICD9: 250.00, ICD10: E11.9 (primary diagnosis) - Blood glucose monitoring on a once a day schedule - Ophthalmology referral for eval/management of diabetic eye changes - Encouraged regular aerobic exercise and weight loss - Daily Asprin therapy recommended - Follow up in 3 months, sooner should any other issues arise. - Discussed diabetic education issues of snf diabetic complications, hypoglycemic symptoms, hyperglycemic symptoms, diet and medications- side effects and need for compliance with patient. - ALBUMIN/CREAT RATIO RND UR - BLOOD-GLUCOSE METER KIT - LANCETS - BLOOD SUGAR DIAGNOSTIC STRIPS - LISINOPRIL 5 MG TABLET 2. Essential hypertension - ICD9: 401.9, ICD10: I10 - good control - Continue current medication(s) - Encouraged dietary sodium restriction/DASH diet - Recommended regular aerobic exercise. - Reviewed risks of HTN and principles of treatment - Goal of BP <140/90 - LISINOPRIL 5 MG TABLET 3. Hyperlipidemia, unspecified hyperlipidemia type - ICD9: 272.4, ICD10: E78.5 - poor control - Continue current medication. - Encouraged following a low fat, low cholesterol diet. - Discussed the benefits of regular aerobic exercise and weight loss. 4. Encounter for hepatitis C screening test for low risk patient - ICD9: V73.89, ICD10: Z11.59 - HEP C AB IA BLOOD 5. Need for vaccination - ICD9: V05.9, ICD10: Z23 - PNEUMOCOCCAL IMMUNIZATION PPSV 23 6. Microscopic hematuria - ICD9: 599.72, ICD10: R31.29 Repeat UA - URINALYSIS WITH MICROSCOPIC 7. RUQ pain - ICD9: 789.01, ICD10: R10.11 Extensive workup negative. Will refer to GI for further evaluation and EGD. - CONSULT TO GASTROENTEROLOGY Pema Simpson MD CNOV Observed: 02/10/2018 Status: COMPLETED Source: MODE 4:20 PM [facility] REPOSITORY Office Visit (FAMPWS) SRAVANI HOLLOWAY ([id number]) 1960 F Date Time Provider Department 02/10/18 4:20 PM PEMA SIMPSON) FAMPWS During your visit today, we recorded the following information about you: Pulse Respiration Blood pressure Weight 84/minute 18/minute 122/64 59.4 kg Pema Simpson MD 02/12/2018 3:20 PM Signed Chief Complaint Patient presents with: Recheck HPI Srvaani Holloway is a 57 year old female who presents here today for diabetes follow up. Here today with daughter. At last OV we started patient on metformin for A1C of 6.8 and referred to DM educator, whom she has not followed up with yet. Discussed glucometer use at home, agreeable to checking fasting sugars daily. Will need rx to local pharmacy. Also discussed need for ANDREW inhibitor, urine studies, and foot exam today. Previously seen by [facility]PERATOR Jyoti Larsen for abdominal pain which patient states is still present. Labs and imaging studies have been negative for obvious cause. Referred to SIZE MARKER as her CT abd/pelvis showed possible abnormality in vagina. Thought to be tampon, which patient states was not in place. SIZE MARKER referral today yielded no obvious cause for this finding. Scheduled for US of pelvis and pap obtained. Discussed referral to GI today which she is agreeable with. Needs f/u UA for microscopic hematuria. Due for pneumovax and hep C screening. Past medical history, appointments, medications, allergies reviewed. Previous Medical History PAST MEDICAL HISTORY Diagnosis Date - Diabetes mellitus, type II (HCC) - GERD (gastroesophageal reflux disease) - HTN (hypertension) - Hyperlipidemia - Plantar fasciitis Previous Surgical History PAST SURGICAL HISTORY Procedure Laterality Date - NONE Family History FAMILY HISTORY Problem Relation Age of Onset - Hyperlipidemia Mother - Diabetes Sister - Diabetes Sister - Diabetes Brother Patient Allergies ALLERGIES No Known Allergies Current Medications Current Outpatient Prescriptions on File Prior to Visit: atorvastatin (LIPITOR) 20 mg tablet Take 1 tablet by mouth daily at bedtime. For cholesterol. metFORMIN (GLUCOPHAGE) 500 mg tablet Take 1 tablet by mouth twice daily with meals. . meloxicam (MOBIC) 15 mg tablet TAKE 1 TABLET BY MOUTH ONCE DAILY X 2 WEEKS THEN DAILY NEEDED FOR PAIN TAKE WITH FOOD omeprazole (PRILOSEC) 20 mg capsule TAKE 1 CAPSULE BY MOUTH DAILY BEFORE BREAKFAST. 1/2 HR BEFORE MEAL. ACETAMINOPHEN (TYLENOL ORAL) Take by mouth. No current facility-administered medications on file prior to visit. Social History Social History Marital status: Single Spouse name: Years of education: Number of children: 4 Occupational History Occupation Employer Comment [employer] Social History Main Topics Smoking status: Current Every Day Smoker Packs/day: 0.00 Years: 0.00 Types: Cigarettes Last attempt to quit: 12/29/2016 Smokeless tobacco: Never Used Comment: pt states she is currently quitting Alcohol use: Yes Comment: very rare Drug use: No Sexual activity: Not Currently Review of Symptoms REVIEW OF SYSTEMS GENERAL: admits to feeling hot and chills RESPIRATORY: Negative for cough, hemoptysis, wheezing, COPD, dyspnea or shortness of breath CARDIOVASCULAR: Negative for chest pain, leg swelling, hypertension, CHF or palpitations GI: No nausea, vomiting, or diarrhea SKIN: Negative for lesions, rash, and itching EXAM: BP 122/64 (BP Site: Right Arm, BP Position: Sitting, BP Cuff Size: Regular Adult) Pulse 84 Resp 18 Wt 59.4 kg (131 lb) BMI 24.11 kg/m? General Appearance: Well appearing, alert, in no acute distress, well-hydrated, well nourished.. Skin: Skin color, texture, turgor normal, no suspicious rashes or lesions. Lungs: Lungs clear to auscultation. No wheezing, rhonchi, rales. Heart: RRR without murmur, gallop, or rubs. No ectopy. Abdomen: Abdomen soft, mild diffuse tenderness without guarding or rebound. Bowel sounds normal. No masses, organomegaly. Extremities: No deformities, edema, skin discoloration, clubbing or cyanosis. Good capillary refill. . Feet: Shoes and socks removed, No deformities, ulcers, calluses, normal distal pulses and sensitive to 10 gm monofilament Health Maintenance List URINE ALBUMIN:CREATININE RATIO due on 1972 DILATED RETINAL EXAM due on 1972 DIABETIC FOOT EXAM due on 1972 ONE PNEUMOVAX PRIOR TO AGE 65 due on 1978 BP CONTROLLED (<130/80) due on 1980 HEPATITIS C SCREENING due on 2006 COLORECTAL CANCER SCREENING,SEE MODIFIER due on 2012 INFLUENZA(1) due on 01/14/2018 PAP EVERY 5 YEARS due on 03/29/2018 HPV EVERY 5 YEARS due on 03/29/2018 HBA1C due on 03/30/2018 MAMMOGRAM due on 12/26/2018 LDL CHOLESTEROL due on 12/26/2018 ANNUAL PCP TEAM CHRONIC DISEASE VISIT due on 01/13/2019 DTAP,TDAP,TD(2 - Td) due on 12/20/2027 Data reviewed Component Latest Ref Rng AND Units 09/27/2017 12/26/2017 Protein, Total 6.3 - 8.0 g/dL 6.9 7.2 Albumin 3.9 - 4.9 g/dL 4.5 4.4 Calcium 8.5 - 10.2 mg/dL 9.9 Bilirubin, Total 0.2 - 1.3 mg/dL 0.3 0.4 Alkaline Phosphatase 32 - 117 U/L 140 (H) 165 (H) AST 13 - 35 U/L 25 22 Glucose 74 - 99 mg/dL 124 (H) BUN 7 - 21 mg/dL 17 Creatinine 0.58 - 0.96 mg/dL 0.72 Sodium 136 - 144 mmol/L 142 Potassium 3.7 - 5.1 mmol/L 3.9 Chloride 97 - 105 mmol/L 101 CO2 22 - 30 mmol/L 26 Anion Gap 9 - 18 mmol/L 15 ALT 7 - 38 U/L 22 22 eGFR- >60 eGFR-All Other Races . >60 Cholesterol, Total <200 mg/dL 328 (H) 260 (H) Triglyceride <150 mg/dL 189 (H) 149 HDL Cholesterol >39 mg/dL 54 52 LDL Cholesterol <100 mg/dL 236 (H) 178 (H) Non HDL Cholesterol <130 mg/dL 274 (H) 208 (H) Fasting Time hrs 5 8 VLDL Cholesterol <30 mg/dL 38 (H) 30 (H) TC:HDL Ratio <5.10 6.07 (H) 5.00 LDL:HDL Ratio <2.54 4.37 (H) 3.42 (H) Bilirubin, Conjug <0.2 mg/dL <0.2 Hemoglobin A1C 4.3 - 5.6 % 6.8 (H) Estimated Average Glucose mg/dL 148 CK 42 - 196 U/L 150 GGT 6 - 46 U/L 169 (H) ASSESSMENT/PLAN: 1. Controlled type 2 diabetes mellitus without complication, without long-term current use of insulin (HCC) - ICD9: 250.00, ICD10: E11.9 (primary diagnosis) - Blood glucose monitoring on a once a day schedule - Ophthalmology referral for eval/management of diabetic eye changes - Encouraged regular aerobic exercise and weight loss - Daily Asprin therapy recommended - Follow up in 3 months, sooner should any other issues arise. - Discussed diabetic education issues of ocean transportation intermediary diabetic complications, hypoglycemic symptoms, hyperglycemic symptoms, diet and medications- side effects and need for compliance with patient. - ALBUMIN/CREAT RATIO RND UR - BLOOD-GLUCOSE METER KIT - LANCETS - BLOOD SUGAR DIAGNOSTIC STRIPS - LISINOPRIL 5 MG TABLET 2. Essential hypertension - ICD9: 401.9, ICD10: I10 - good control - Continue current medication(s) - Encouraged dietary sodium restriction/DASH diet - Recommended regular aerobic exercise. - Reviewed risks of HTN and principles of treatment - Goal of BP <140/90 - LISINOPRIL 5 MG TABLET 3. Hyperlipidemia, unspecified hyperlipidemia type - ICD9: 272.4, ICD10: E78.5 - poor control - Continue current medication. - Encouraged following a low fat, low cholesterol diet. - Discussed the benefits of regular aerobic exercise and weight loss. 4. Encounter for hepatitis C screening test for low risk patient - ICD9: V73.89, ICD10: Z11.59 - HEP C AB IA BLOOD 5. Need for vaccination - ICD9: V05.9, ICD10: Z23 - PNEUMOCOCCAL IMMUNIZATION PPSV 23 6. Microscopic hematuria - ICD9: 599.72, ICD10: R31.29 Repeat UA - URINALYSIS WITH MICROSCOPIC 7. RUQ pain - ICD9: 789.01, ICD10: R10.11 Extensive workup negative. Will refer to GI for further evaluation and EGD. - CONSULT TO GASTROENTEROLOGY Pema Simpson MD Referring Provider: PEMA SIMPSON () [[id number]] Allergies As of Date: 02/10/2018 (No Known Allergies) Date Reviewed: 02/10/2018 Reviewed by: Cherry Hernández - Fully Assessed Reason for Visit: Recheck [92] Primary Visit Diagnosis:Controlled type 2 diabetes mellitus without complication, without long-term current use of insulin (HCC) [E11.9] Other Visit Diagnoses:Essential hypertension [I10] Hyperlipidemia, unspecified hyperlipidemia type [E78.5] Encounter for hepatitis C screening test for low risk patient [Z11.59] Need for vaccination [Z23] Microscopic hematuria [R31.29] RUQ pain [R10.11] Order(s):ALBUMIN/CREAT RATIO RND UR [SQUACR] Order #: [id number] FUTURE HEP C AB IA BLOOD [SQAHCV] Order #: [id number] FUTURE [] Blood-Glucose Meter monitoring kitGlucose Meter of Choice - Kit - Dx: Type 2 DM - Controlled E11.9Disp: 1 EachRfl: 0 Lancets lancetsTest blood sugar(s) 50 times daily. Dx: Type 2 DM - Controlled E11.9 Insulin: NoDisp: 100 EachRfl: 11 blood sugar diagnostic (BLOOD GLUCOSE TEST) test stripTest blood sugar(s) 50 times daily. Dx: Type 2 DM - Controlled E11.9 Insulin: NoDisp: 50 StripRfl: 11 lisinopril (ZESTRIL, PRINIVIL) 5 mg tabletTake 1 tablet by mouth once daily.Disp: 30 tabletRfl: 5 PNEUMOCOCCAL IMMUNIZATION PPSV 23 [25315TNC] Order #: [id number] URINALYSIS WITH MICROSCOPIC [SQUAWMIC] Order #: [id number]. #:[id number] CONSULT TO GASTROENTEROLOGY [9010] Order #: [id number]: 1 Prescriptions as of 02/10/2018 Sig: ATORVASTATIN 20 MG TABLET Take 1 tablet by mouth daily * METFORMIN 500 MG TABLET Take 1 tablet by mouth twice * MELOXICAM 15 MG TABLET TAKE 1 TABLET BY MOUTH ONCE D* OMEPRAZOLE 20 MG CAPSULE,HANS* TAKE 1 CAPSULE BY MOUTH DAILY* TYLENOL ORAL Take by mouth. BLOOD-GLUCOSE METER KIT Glucose Meter of Choice - Kit* LANCETS Test blood sugar(s) 50 times * BLOOD SUGAR DIAGNOSTIC STRIPS Test blood sugar(s) 50 times * LISINOPRIL 5 MG TABLET Take 1 tablet by mouth once d* Problem List As Of Date 02/10/2018 Noted Resolved Arthritis [M19.90] INVALID FOR* Postmenopausal bleeding [N95.0] INVALID FOR* Controlled type 2 diabetes mellitus without com*INVALID FOR* Hyperlipidemia, mixed [E78.2] INVALID FOR* HTN (hypertension) [I10] Hyperlipidemia [E78.5] Prescriptions ordered this encounter Disp Refills Start End BLOOD-GLUCOSE METER KIT 1 Ea* 0 02/10/2018 02/11/2018 Sig: Glucose Meter of Choice - Kit - Dx: Type 2 DM - Controlled E11.9 LANCETS 100 * 11 02/10/2018 Sig: Test blood sugar(s) 50 times daily. Dx: Type 2 DM - Controlled E11.9 Insulin: No BLOOD SUGAR DIAGNOSTIC STRIPS 50 S* 11 02/10/2018 Sig: Test blood sugar(s) 50 times daily. Dx: Type 2 DM - Controlled E11.9 Insulin: No LISINOPRIL 5 MG TABLET 30 t* 5 02/10/2018 Route: ORAL Sig: Take 1 tablet by mouth once daily. Disposition: Return in about 3 months (around 05/12/2018). Follow-up and Disposition History Recorded Encounter Status:Closed by PEMA SIMPSON MD on 02/12/18 HPV W/GENOTYPE Collected: 02/10/2018 Status: F Source: MODE 10:59 AM [facility] [place] REPOSITORY TYPE CODE TESTS RESULT OUT OF RANGE REFERENCE UNITS LAB HPVT16 HPV HighRisk Negative for Type 16 HPV DNA high risk type 16 by PCR. LAB HPVT18 HPV HighRisk Negative for Type 18 HPV DNA high risk type 18 by PCR. LAB HPVHRO Abnormal HPV HighRisk Positive for Alert Other one or more of the following HPV DNA high risk types: 31,33,35,39,45 ,51,52,56,58,5 9,66,68 by PCR Result Comment: This test was developed and its performance characteristics determined by [facility] [place] ([facility]). It has not been cleared or approved by the FDA. -[facility] is regulated under CLIA as qualified to perform high-complexity testing. This test is used for clinical purposes. It should not be regarded as inv estigational or for research. Performed By: #### HPVHRR #### [facility] [address] [place], [place] [address] CYTOLOGY Observed: 02/10/2018 Status: C Source: MODE 10:59 [facility] REPOSITORY ADDITIONAL PROCEDURES PRESENT ---Abnormal Pap Test - Epithelial Cell Abnormality--- Specimen originated from [facility] Specimen #: [id number] Submitting Physician: BAILEY HOOD CNP SPECIMEN SUBMITTED A: CERVICAL, SCREENING, FLUID FINAL DIAGNOSIS A. CERVICAL, SCREENING, FLUID Satisfactory for interpretation. Epithelial cell abnormality. Atypical squamous cells of undetermined significance (ASC-US). Acute inflammation. Trichomonas vaginalis. This specimen has been analyzed by the ThinPrep Imaging System, an automated imaging and review system, which assists the laboratory in evaluating cells on ThinPrep Pap tests. Following automated imaging, selected velasquez from every slide are reviewed by a surveillance supervisor. Rosalia Liu M.D. (Electronic Signature) ADDITIONAL PROCEDURE(S) HUMAN PAPILLOMA VIRUS Date Ordered: 02/13/2018 Date Reported: 02/14/2018 Procedure Results and Interpretation Negative for HPV DNA high risk type 16 by PCR. Negative for HPV DNA high risk type 18 by PCR. Positive for one or more of the following HPV DNA high risk types: 31,33,35,39,45,51,52,56,58,59,66,68 by PCR(*) This test was developed and its performance characteristics determined by [facility] [place] ([facility]). It has not been cleared or approved by the FDA. [facility] is regulated under CLIA as qualified to perform high-complexity testing. This test is used for clinical purposes. It should not be regarded as investigational or for research. CLINICAL DATA ROUTINE EXAM, HPV Testing: Yes, automatic HPV patients over 30 Date of Last Menstrual Period: Postmenopausal STAINS A: CERVICAL, SCREENING, FLUID THIN PREP SIZE MARKER Date of Report: 02/21/2018 Date of Procedure: 02/10/2018 Date of Receipt: 02/13/2018 Submitted by: BAILEY HOOD CNP Location: [facility] Diagnostic interpretation performed at [facility], [address] [place] [address]. The Pap Smear is a screening test for cervical cancer. False negative results occur with all screening tests, emphasizing the need for rescreening at recommended intervals, and clinical correlation. CNOV Observed: 02/10/2018 Status: COMPLETED Source: MODE 10:45 AM [facility] REPOSITORY Office Visit (WOOB) AMIEALANSRAVANI ([id number]) 1960 F Date Time Provider Department 02/10/18 10:45 AM BAILEY HOOD (SHARIFA) WOOB During your visit today, we recorded the following information about you: Blood pressure Weight Height 120/86 59.8 kg 1.57 m Bailey Hood APRN.CNP 02/10/2018 12:25 PM Signed Sravani Holloway is a 57 year old who presents for her annual gynecologic exam without complaints. States has been having abdominal pain - under care of PCP. Gallbladder disease ruled out. CT scan 01/31/18 - Heterogeneous appearance of the lower vaginal canal with multiple foci of air within it; may be related to the presence of a tampon. Differential consideration is a possible infectious/inflammatory process or other vaginal pathology. Postmenopausal: Yes since age 50 HRT use: No. Last Pap:unknown History of abnormal pap: No Last mammogram: never Sexually active: No Hot flashes: Yes, few/day Night sweats: No Exercise: 7 times a week for 60 minutes. Type: walking Diet: not very balanced Seatbelt use: Yes Obstetric History T0 L4 SAB0 TAB0 Ectopic0 Multiple0 Live Births0 PAST MEDICAL HISTORY Diagnosis Date - Diabetes mellitus, type II (HCC) - GERD (gastroesophageal reflux disease) - HTN (hypertension) - Hyperlipidemia - Plantar fasciitis PAST SURGICAL HISTORY Procedure Laterality Date - NONE FAMILY HISTORY Problem Relation Age of Onset - Hyperlipidemia Mother - Diabetes Sister - Diabetes Sister - Diabetes Brother SOCIAL HISTORY Social History Substance Use Topics - Smoking status: Current Every Day Smoker Types: Cigarettes Last attempt to quit: 12/29/2016 - Smokeless tobacco: Never Used Comment: refers smoking 3-4 cigarettes daily. - Alcohol use Yes Comment: Rare, but patient states she was more so when younger. REVIEW OF SYSTEMS Abdomen: Has been having tests for upper abdominal pain. No nausea, vomiting, diarrhea, or constipation. No bloating, early satiety, indigestion, or increased flatulence. Bladder: No dysuria, gross hematuria, urinary frequency, urinary urgency, or incontinence Breast: No breast lumps, nipple d/c, overlying skin changes, redness or skin retraction Allergies and current medication updated:Yes EXAM: BP 120/86 Ht 5' 1.811 (1.57m) Wt 131 lb 12.8 oz (59.8kg) BMI 24.25 kg/(m2). GENERAL: pleasant, female in no apparent distress HEENT: Normocephalic, atraumatic, mucus membranes moist and no lesions NECK: Supple, full range of motion, no adenopathy and thyroid normal DERMATOLOGY: Normal, without lesions, non-icteric and non-hirsute BREAST: soft, non-tender, symmetric, no dominant mass, normal nipple-areolar complex, no lymphadenopathy and no nipple discharge CHEST: Normal inspiratory effort ABDOMEN: soft, no masses and Moderate tenderness in Generalized PELVIC: external genitalia normal, normal Bartholin's glands, urethra, Millbrook's glands, no vulvar lesions, no cervical lesions, physiologic discharge present, normal appearing perineal body and perianal region BIMANUAL: uterus normal size, shape and consistency, no adnexal masses and diffuse tenderness RECTOVAGINAL: deferred. NEURO: alert and oriented x3,exam grossly non-focal EXTREMITIES: normal ASSESSMENT/PLAN: 1) Health maintenance: Pap done with HPV. Mammogram ordered Nutrition, exercise and routine health maintenance exams reviewed. Colon cancer screening: patient to discuss with PCP 2. Pelvic pain in female - ICD9: 625.9, ICD10: R10.2 - Generalized abdominal pain, under care of PCP. Abdominal CT showed Heterogeneous appearance of the lower vaginal canal with multiple foci of air within it. - PELVIC US WHI - Pap done with HPV. 2) Follow up one year or sooner as needed. Has appointment with PCP this afternoon. Bailey Hood APRN.SHARIFA Menchaca Ma 02/10/2018 12:25 PM Signed Would you like a relay tester present for your visit today? No Josee Menchaca Ma Referring Provider: PEMA SIMPSON) [[id number]] Allergies As of Date: 02/10/2018 (No Known Allergies) Date Reviewed: 02/10/2018 Reviewed by: Bailey Hood - Fully Assessed Primary Visit Diagnosis:Encounter for gynecological examination (general) (routine) without abnormal findings [Z01.419] Other Visit Diagnoses:Encounter for screening for human papillomavirus (HPV) [Z11.51] Pap smear for cervical cancer screening [Z12.4] Encounter for screening mammogram for breast cancer [Z12.31] Pelvic pain in female [R10.2] Order(s):PAP FLUID CERVICAL SCREENING [[id number]] Order #: [id number] LISA SCREENING [[id number]] Order #: [id number] FUTURE PELVIC US WHI [[id number]] Order #: [id number]: 1 Prescriptions as of 02/10/2018 Sig: ATORVASTATIN 20 MG TABLET Take 1 tablet by mouth daily * METFORMIN 500 MG TABLET Take 1 tablet by mouth twice * MELOXICAM 15 MG TABLET TAKE 1 TABLET BY MOUTH ONCE D* OMEPRAZOLE 20 MG CAPSULE,HANS* TAKE 1 CAPSULE BY MOUTH DAILY* TYLENOL ORAL Take by mouth. Problem List As Of Date 02/10/2018 Noted Resolved Arthritis [M19.90] INVALID FOR* Postmenopausal bleeding [N95.0] INVALID FOR* Controlled type 2 diabetes mellitus without com*INVALID FOR* Hyperlipidemia, mixed [E78.2] INVALID FOR* HTN (hypertension) [I10] Hyperlipidemia [E78.5] Disposition: Return in 1 year (on 02/10/2019) for Annual Exam. Follow-up and Disposition History Recorded Encounter Status:Closed by BAILEY HOOD on 02/10/18 PROGRESS Observed: 02/10/2018 Status: COMPLETED Source: MODE 10:34 AM [facility] REPOSITORY HNO ID: [id number] Author: Josee Menchaca Ma Service: (none) Author Type: (none) Type: Progress Notes Filed: 02/10/2018 12:25 PM Note Text: Would you like a relay tester present for your visit today? No Josee Menchaca Ma PROGRESS Observed: 02/10/2018 Status: COMPLETED Source: MODE 10:29 AM [facility] REPOSITORY HNO ID: [id number] Author: Bailey Hood Service: (none) Author Type: Nurse Practitioner Type: Progress Notes Filed: 02/10/2018 12:25 PM Note Text: Sravani Holloway is a 57 year old who presents for her annual gynecologic exam without complaints. States has been having abdominal pain - under care of PCP. Gallbladder disease ruled out. CT scan 01/31/18 - Heterogeneous appearance of the lower vaginal canal with multiple foci of air within it; may be related to the presence of a tampon. Differential consideration is a possible infectious/inflammatory process or other vaginal pathology. Postmenopausal: Yes since age 50 HRT use: No. Last Pap:unknown History of abnormal pap: No Last mammogram: never Sexually active: No Hot flashes: Yes, few/day Night sweats: No Exercise: 7 times a week for 60 minutes. Type: walking Diet: not very balanced Seatbelt use: Yes Obstetric History T0 L4 SAB0 TAB0 Ectopic0 Multiple0 Live Births0 PAST MEDICAL HISTORY Diagnosis Date - Diabetes mellitus, type II (HCC) - GERD (gastroesophageal reflux disease) - HTN (hypertension) - Hyperlipidemia - Plantar fasciitis PAST SURGICAL HISTORY Procedure Laterality Date - NONE FAMILY HISTORY Problem Relation Age of Onset - Hyperlipidemia Mother - Diabetes Sister - Diabetes Sister - Diabetes Brother SOCIAL HISTORY Social History Substance Use Topics - Smoking status: Current Every Day Smoker Types: Cigarettes Last attempt to quit: 12/29/2016 - Smokeless tobacco: Never Used Comment: refers smoking 3-4 cigarettes daily. - Alcohol use Yes Comment: Rare, but patient states she was more so when younger. REVIEW OF SYSTEMS Abdomen: Has been having tests for upper abdominal pain. No nausea, vomiting, diarrhea, or constipation. No bloating, early satiety, indigestion, or increased flatulence. Bladder: No dysuria, gross hematuria, urinary frequency, urinary urgency, or incontinence Breast: No breast lumps, nipple d/c, overlying skin changes, redness or skin retraction Allergies and current medication updated:Yes EXAM: BP 120/86 Ht 5' 1.811 (1.57m) Wt 131 lb 12.8 oz (59.8kg) BMI 24.25 kg/(m2). GENERAL: pleasant, female in no apparent distress HEENT: Normocephalic, atraumatic, mucus membranes moist and no lesions NECK: Supple, full range of motion, no adenopathy and thyroid normal DERMATOLOGY: Normal, without lesions, non-icteric and non-hirsute BREAST: soft, non-tender, symmetric, no dominant mass, normal nipple-areolar complex, no lymphadenopathy and no nipple discharge CHEST: Normal inspiratory effort ABDOMEN: soft, no masses and Moderate tenderness in Generalized PELVIC: external genitalia normal, normal Bartholin's glands, urethra, Millbrook's glands, no vulvar lesions, no cervical lesions, physiologic discharge present, normal appearing perineal body and perianal region BIMANUAL: uterus normal size, shape and consistency, no adnexal masses and diffuse tenderness RECTOVAGINAL: deferred. NEURO: alert and oriented x3,exam grossly non-focal EXTREMITIES: normal ASSESSMENT/PLAN: 1) Health maintenance: Pap done with HPV. Mammogram ordered Nutrition, exercise and routine health maintenance exams reviewed. Colon cancer screening: patient to discuss with PCP 2. Pelvic pain in female - ICD9: 625.9, ICD10: R10.2 - Generalized abdominal pain, under care of PCP. Abdominal CT showed Heterogeneous appearance of the lower vaginal canal with multiple foci of air within it. - PELVIC US WHI - Pap done with HPV. 2) Follow up one year or sooner as needed. Has appointment with PCP this afternoon. Bailey Hood APRN.BATCH ATTENDANT PROGRESS Observed: 01/31/2018 Status: COMPLETED Source: MODE 9:04 AM [facility] REPOSITORY HNO ID: [id number] Author: Janay Langston E[address] Ct Service: (none) Author Type: (none) Type: Progress Notes Filed: 01/31/2018 9:05 AM Note Text: Radiology Service Progress Note PATIENT NAME: Sravani Holloway DATE OF SERVICE: January 31, 2018 TIME: 9:04 AM PATIENT IDENTITY VERIFICATION COMPLETED USING TWO (2) METHODS: Patient confirmed name verbally and Date of . PATIENT GENDER DATA: Female. status: : No status: NO. PATIENT RELEVANT IMPLANT DATA REVIEWED: Not Applicable RADIOLOGY DEPARTMENT: CT; Exam(s) Completed: Chest PERIPHERAL IV DATA: Not applicable SIGNED BY: Janay Kian Emanuel Linsey January 31, 2018 9:[address] FLANK WO IVCON Observed: 01/31/2018 Status: F Source: MODE 9:02 AM [facility] REPOSITORY * * *Final Report* * * DATE OF EXAM: Jan 31 2018 9:02AM [facility] 0529 - CT FLANK WO IVCON / PROCEDURE REASON: multiple diagnoses * * * * Physician Interpretation * * * * EXAMINATION: CT ABDOMEN AND PELVIS WITHOUT IV CONTRAST (Renal stone protocol) CLINICAL HISTORY: Unspecified flank pain. Hematuria. TECHNIQUE: Non-contrast imaging of the abdomen and pelvis was performed through the urinary tract. Study performed without intravenous or oral contrast to evaluate for urinary tract calculus. MQ: [id number] Contrast: IV contrast: None Oral contrast: None CT Radiation dose: Integrated dose-length product (DLP) for this visit = 173 mGy*cm. CT Dose Reduction Employed: Automated exposure control(AEC) and iterative recon COMPARISON: None. RESULT: Limitations: Unenhanced imaging is limited for the evaluation of some renal and other intra-abdominal and pelvic pathology. Urinary Tract: Right kidney and ureter: No calculus. No hydronephrosis. No finding to suggest cyst or mass in the unenhanced kidney. Left kidney and ureter: No calculus. No hydronephrosis. No finding to suggest cyst or mass in the unenhanced kidney. Bladder: No calculus. Abdomen and Pelvis: Liver: Unremarkable. Biliary: Multiple calcifications compatible with gallstones are noted within the gallbladder. Spleen: No splenomegaly. Pancreas: Unremarkable. Adrenals: Normal. GI Tract: No bowel dilation. The appendix is normal in size and caliber. Lymph Nodes: No lymphadenopathy. Mesentery/peritoneum: No ascites. Vasculature: Arterial atherosclerotic disease without aneurysm. Pelvis: Heterogeneous appearance of the lower vaginal canal with multiple foci of air within it; may be related to the presence of a tampon. Clinical correlation is recommended. Bones/Soft Tissues: No acute abnormality. Levoscoliosis of the thoracolumbar spine. Degenerative changes of the skeleton. Lower thorax: Unremarkable. IMPRESSION: No urinary tract calculus or hydronephrosis. Heterogeneous appearance of the lower vaginal canal with multiple foci of air within it; may be related to the presence of a tampon. Differential consideration is a possible infectious/inflammatory process or other vaginal pathology. Clinical correlation is recommended. Candy Rolling Machine Operator: MARLYS Transcribe Date/Time: Jan 31 2018 1:28P Dictated by : YASMIN RUCKER MD This examination was interpreted and the report reviewed and electronically signed by: YASMIN RUCKER MD on Jan 31 2018 1:34PM EST [id number] NM HEPATOBILIARY W EF Observed: 01/26/2018 Status: F Source: ZIMMER AND/OR RX 9:47 AM [facility] REPOSITORY * * *Final Report* * * DATE OF EXAM: Jan 26 2018 9:47AM [facility] 0021 - [place] HEPATOBILIARY W EF AND/OR RX / PROCEDURE REASON: multiple diagnoses * * * * Physician Interpretation * * * * HEPATOBILIARY SCAN WITH POST FATTY MEAL GALLBLADDER EJECTION FRACTION: HISTORY: Nausea. Right upper quadrant abdominal pain. TECHNIQUE: 5.7 mCi Tc-99m Choletec IV, followed by dynamic imaging of the abdomen for 60 minutes. The patient ingested a fatty meal consisting of 8 ounces of Ensure Plus, followed by additional imaging. RESULT: There is prompt uptake and clearance of activity by the liver, which is normal in configuration. Major intra- and extrahepatic biliary ducts are visualized. Gallbladder activity is visualized by 14 minutes post injection, indicating cystic duct patency. Proximal small bowel activity is noted after ingestion of the fatty meal, indicating biliary patency. After ingestion of the fatty meal, the calculated gallbladder ejection fraction was 96% (normal range, >35%). These findings represent a normal gallbladder response, without definite evidence for chronic cholecystitis. IMPRESSION: NO DEFINITE SCINTIGRAPHIC EVIDENCE FOR ACUTE OR CHRONIC CHOLECYSTITIS. Candy Rolling Machine Operator: MARLYS Transcribe Date/Time: Jan 26 2018 12:07P Dictated by : KAYLNA GARCIA MD This examination was interpreted and the report reviewed and electronically signed by: KAYLAN GARCIA MD on Jan 26 2018 12:09PM EST [id number] PROGRESS Observed: 01/26/2018 Status: COMPLETED Source: MODE 9:03 AM [facility] REPOSITORY [facility] ID: [id number] Author: Ruddy Roldan [facility] Service: (none) Author Type: (none) Type: Progress Notes Filed: 01/26/2018 9:05 AM Note Text: RADIOLOGY SERVICE PROGRESS NOTE SERVICE DATE: 01/26/2018 SERVICE TIME: 9:03 AM PATIENT IDENTITY VERIFICATION COMPLETED USING TWO (2) METHODS: Patient confirmed name and Date of verbally. PATIENT GENDER DATA: .female : No ALLERGIES: Reviewed and unchanged MEDICATIONS REVIEWED: No PATIENT RELEVANT IMPLANT DATA REVIEWED: Not Applicable CREATININE: Creatinine Date Value Ref Range Status 09/27/2017 0.72 0.58 - 0.96 mg/dL Final eGFR-All Other Races Date Value Ref Range Status 09/27/2017 >60 . Final Comment: eGFR (Estimated GFR) Units of measure: mL/min/1.73 meters squared eGFR is derived from the reexpressed MDRD Study equation using the following parameters: serum creatinine, age, gender and race. The creatinine assay has been calibrated to be traceable to IDMS. An eGFR <60 mL/min/1.73m2 for >3 months is consistent with chronic kidney disease. Refer to KDOQI guidelines for clinical interpretation. In patients with unstable renal function, e.g. those with acute kidney injury, the eGFR may not accurately reflect actual GFR. eGFR- Date Value Ref Range Status 09/27/2017 >60 Final P.O.C.T. RESULTS: N/A January 26, [address] PERFORMED: No IV SITE: Ambulatory: A peripheral IV was started in the Right antecubital site with a Angio cath: 22 gauge. POST EXAM PIV STATUS: Discontinued PROCEDURE TYPE: NM INJECT: HIDA . 5.7 mCi Tc99m CHOLETEC. 8 oz Ensure PO. ADMINISTRATION TIME: 07:50 PATIENT DISCHARGED TO: Ambulatory patient, left NM department area. A Diagnostic radioactive procedure has taken place, with no further precautions necessary other than routine body substance precautions. More information regarding radiation safety can be found using this link: [email or web address] SIGNATURE: Ruddy Jamar [facility] PATIENT NAME: Sravani Holloway DATE: January 26, 2018 TIME: 9:03 AM PAGER/CONTACT #: [id number] Observed: 01/17/2018 Status: COMPLETED Source: MODE 12:00 AM [facility] REPOSITORY Letter Text Jyoti Larsen CNP [facility] Sravani Holloway [address] [place] [address] #: [id number] 01/17/2018 Dear Ms. Holloway, I have received the results of your recent tests. The results of your Urine Culture tests were either normal or within the acceptable range. We can discuss this at your next visit. Please do not hesitate to contact me with any questions. Sincerely, Jyoti larsen CNP [facility] Department electronically signed to expedite mailing Observed: 01/13/2018 Status: F Source: MODE URINE CULTURE 8:51 AM [facility] REPOSITORY Sp. Request/Comment: - Specimen received in preservative Culture Result - 10,000 - <50,000 CFU/ml Streptococcus agalactiae (Group B streptococcus) --> ABNORMAL ALERT Insignificant colony count. No further workup. --> ABNORMAL ALERT 10,000 - <50,000 CFU/ml Normal urogenital tamiko Performed By: #### URCUL #### [facility] [address] [place], [place] [address] PROGRESS Observed: 01/13/2018 Status: COMPLETED Source: MODE 8:19 AM [facility] REPOSITORY HNO ID: [id number] Author: Jyoti Parnell) Chava Service: (none) Author Type: Nurse Practitioner Type: Progress Notes Filed: 01/13/2018 12:05 PM Note Text: This is a 57 year old female who presents today with: Patient presents with: Recheck: side pain HISTORY OF PRESENT ILLNESS: Sravani Holloway is a 57 year old female. Patient presents with: Recheck: side pain Tuesday night, got RUQ pain. Describes as pretty intense in nature. Refers that it moved to the left side. Refers that it also radiated to her back. Refers it started at work, when she was twisting. Pain was accompanied by vomiting and diarrhea. Reports she was diaphoretic. Was vomiting for a couple of hours. Refers she also had diarrhea for a couple of hours. Thinks she ate a hot dog prior to work (3rd shift). Refers that eating does make the pain worse. Stooling does not affect the pain. She had a recent u/s which did show some gall stones and fatty liver. Still some discomfort, but not as much as Tuesday. Denies urinary symptoms. PAST MEDICAL HISTORY: PAST MEDICAL HISTORY Diagnosis Date - Diabetes mellitus, type II (HCC) - GERD (gastroesophageal reflux disease) - HTN (hypertension) - Hyperlipidemia - Plantar fasciitis PAST SURGICAL HISTORY Procedure Laterality Date - NONE ALLERGIES Patient has no known allergies. MEDICATIONS Current Outpatient Prescriptions: atorvastatin (LIPITOR) 20 mg tablet Take 1 tablet by mouth daily at bedtime. For cholesterol. metFORMIN (GLUCOPHAGE) 500 mg tablet Take 1 tablet by mouth twice daily with meals. . meloxicam (MOBIC) 15 mg tablet TAKE 1 TABLET BY MOUTH ONCE DAILY X 2 WEEKS THEN DAILY NEEDED FOR PAIN TAKE WITH FOOD omeprazole (PRILOSEC) 20 mg capsule TAKE 1 CAPSULE BY MOUTH DAILY BEFORE BREAKFAST. 1/2 HR BEFORE MEAL. ACETAMINOPHEN (TYLENOL ORAL) Take by mouth. No current facility-administered medications for this visit. FAMILY HISTORY Problem Relation Age of Onset - Hyperlipidemia Mother - Diabetes Sister - Diabetes Sister - Diabetes Brother Social History Marital status: Single Spouse name: Years of education: Number of children: 4 Occupational History Occupation Employer Comment [employer] Social History Main Topics Smoking status: Current Every Day Smoker Packs/day: 0.00 Years: 0.00 Types: Cigarettes Last attempt to quit: 12/29/2016 Smokeless tobacco: Never Used Comment: refers smoking 3-4 cigarettes daily. Alcohol use: Yes Comment: Rare, but patient states she was more so when younger. Drug use: No Sexual activity: Not Currently EXAM: BP 118/66 (BP Site: Left Arm, BP Position: Sitting, BP Cuff Size: Regular Adult) Pulse 72 Temp 36.4 ?C (97.5 ?F) (Left Tympanic) Resp 12 Wt 59 kg (130 lb) BMI 24.56 kg/m? PHYSICAL EXAM: General Appearance: Well appearing, alert, in no acute distress, well-hydrated, well nourished.. Skin: Skin color, texture, turgor normal, no suspicious rashes or lesions. Head: Normocephalic, no masses, lesions, tenderness or abnormalities. Eyes: Anicteric sclera. Extraocular movements are intact. . Lungs: Lungs clear to auscultation. No wheezing, rhonchi, rales. Heart: RRR without murmur, gallop, or rubs. No ectopy. Abdomen: Abdomen soft, non-tender. Bowel sounds normal. No masses, organomegaly, Negative CVA tenderness. Neurologic: Gait normal. ASSESSMENT/PLAN: 1. Right upper quadrant pain - ICD9: 789.01, ICD10: R10.11 (primary diagnosis) - [place] low residue diet - NM HEPATOBILIARY W EF AND/OR RX Get hida scan to further eval gallbladder, as symptoms started after eating and she reports eating does make the pain worse. - UA DIP B/O - CT FLANK WO IVCON 2. Nausea - ICD9: 787.02, ICD10: R11.0 - NM HEPATOBILIARY W EF AND/OR RX - UA DIP B/O - CT FLANK WO IVCON 3. Hematuria, microscopic - ICD9: 599.72, ICD10: R31.29 Pt with large amount of microscopic blood in urine. With the significant amount of pain, vomiting, and microscopic hematuria, may have passed a stone. Will get CT of flank to r/o kidney stone/pathology. Pt agreeable to plan. - CT FLANK WO IVCON - URINE CULTURE Discussed treatment plan and patient voices understanding. Patient's questions answered appropriately. Medications and potential side effects were discussed and patient voices understanding. Return to the office as scheduled or as needed for worsening/no improvement. Jyoti Larsen APRN.BATCH ATTENDANT CNOV Observed: 01/13/2018 Status: COMPLETED Source: MODE 8:00 AM [facility] REPOSITORY Office Visit (FAMPWS) SRAVANI HOLLOWAY ([id number]) 1960 F Date Time Provider Department 01/13/18 8:00 AM JYOTI LARSEN ([facility]) FAMPWS During your visit today, we recorded the following information about you: Temperature Pulse Respiration Blood pressure 97.5 degrees 72/minute 12/minute 118/66 Weight 59 kg Jyoti Larsen APRN.CNP 01/13/2018 12:05 PM Signed This is a 57 year old female who presents today with: Patient presents with: Recheck: side pain HISTORY OF PRESENT ILLNESS: Sravani Holloway is a 57 year old female. Patient presents with: Recheck: side pain Tuesday night, got RUQ pain. Describes as pretty intense in nature. Refers that it moved to the left side. Refers that it also radiated to her back. Refers it started at work, when she was twisting. Pain was accompanied by vomiting and diarrhea. Reports she was diaphoretic. Was vomiting for a couple of hours. Refers she also had diarrhea for a couple of hours. Thinks she ate a hot dog prior to work (3rd shift). Refers that eating does make the pain worse. Stooling does not affect the pain. She had a recent u/s which did show some gall stones and fatty liver. Still some discomfort, but not as much as Tuesday. Denies urinary symptoms. PAST MEDICAL HISTORY: PAST MEDICAL HISTORY Diagnosis Date - Diabetes mellitus, type II (HCC) - GERD (gastroesophageal reflux disease) - HTN (hypertension) - Hyperlipidemia - Plantar fasciitis PAST SURGICAL HISTORY Procedure Laterality Date - NONE ALLERGIES Patient has no known allergies. MEDICATIONS Current Outpatient Prescriptions: atorvastatin (LIPITOR) 20 mg tablet Take 1 tablet by mouth daily at bedtime. For cholesterol. metFORMIN (GLUCOPHAGE) 500 mg tablet Take 1 tablet by mouth twice daily with meals. . meloxicam (MOBIC) 15 mg tablet TAKE 1 TABLET BY MOUTH ONCE DAILY X 2 WEEKS THEN DAILY NEEDED FOR PAIN TAKE WITH FOOD omeprazole (PRILOSEC) 20 mg capsule TAKE 1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 REPOSITORY TYPE CODE TESTS RESULT OUT OF RANGE REFERENCE UNITS LAB CK 42-196 U/L CK 150 Result Comment: Please note the updated, gender-specific reference range for this test (effective 04/29/2016). Performed By: #### CK, HFP, LIPB #### [facility] [address], [place] [address] HEPATIC FUNCTN PANEL Collected: 12/26/2017 Status: F Source: [facility] 8:43 AM [facility] REPOSITORY TYPE CODE TESTS RESULT OUT OF REFERENCE UNITS RANGE LAB ALB 3.9-4.9 g/dL Albumin 4.4 LAB TBIL 0.2-1.3 mg/dL Bilirubin, Total 0.4 LAB CBIL <0.2 mg/dL Bilirubin,Conjuga <0.2 praveen LAB ALKP 32-117 U/L Alkaline High Phosphatase 165 LAB AST 13-35 U/L AST 22 LAB ALT 7-38 U/L ALT 22 LAB TP 6.3-8.0 g/dL Protein, Total 7.2 Performed By: #### CK, HFP, LIPB #### [facility] [address] [place] [address] LIPID PANEL, BASIC Collected: 12/26/2017 Status: F Source: MODE 8:43 AM [facility] REPOSITORY TYPE CODE TESTS RESULT OUT OF REFERENCE UNITS RANGE LAB CHOL <200 mg/dL Cholesterol High 260 Result Comment: <200 mg/dL, Desirable 200-239 mg/dL, Borderline high >239 mg/dL, High LAB TRIGLY <150 mg/dL Triglyceride 149 Result Comment: <150 mg/dL, Normal 150-199 mg/dL, Borderline high 200-499 mg/dL, High >499 mg/dL, Very high LAB HDL >39 mg/dL HDL-Cholesterol 52 Result Comment: 40-59 mg/dL, Acceptable >59 mg/dL, High: Negative risk factor for coronary heart disease <40 mg/dL, Low: Positive risk factor for coronary heart disease LAB LDL <100 mg/dL LDL-Cholesterol High 178 Result Comment: <100 mg/dL, Optimal 100-129 mg/dL, Near optimal/above optimal 130-159 mg/dL, Borderline high 160-189 mg/dL, High >189 mg/dL, Very high Secondary prevention optimal LDL Cholesterol levels are recommended to be < 70 mg/dL LAB NONHDL <130 mg/dL Non HDL High Cholesterol 208 Result Comment: <130 mg/dL, Optimal 130-159 mg/dL, Near optimal/above optimal 160-189 mg/dL, Borderline high 190-219 mg/dL, High >219 mg/dL, Very high Secondary prevention optimal non HDL Cholesterol levels are recommended to be < 100 mg/dL LAB FT hrs Fasting Time 8 LAB VLDL <30 mg/dL High VLDL Cholesterol 30 LAB TCHDL <5.10 TC:HDL Ratio 5.00 LAB LDLHDL <2.54 High LDL:HDL Ratio 3.42 Result Comment: Reference: 1. National Cholesterol Education Program ATP III Guideline At-A-Glance Quick Desk Reference: National Heart, Lung, and Blood Green Bank. National Institutes of Health. 2001: NIH Publication No. 01-3305. 2. An International Atherosclerosis Society position paper: global recommendations for the management of dyslipidemia: executive summary, Atherosclerosis. 2014: 232(2):410-413. Performed By: #### CK, HFP, LIPB #### [facility] [address] [place], [place] [address] GGT Collected: 12/26/2017 Status: F Source: MODE 8:43 AM [facility] REPOSITORY TYPE CODE TESTS RESULT OUT OF RANGE REFERENCE UNITS LAB GGT 6-46 U/L High GGT 169 Performed By: #### GGT #### [facility] [address], [place] [address] CNCNPATED Observed: 12/19/2017 Status: COMPLETED Source: MODE 1:15 PM [facility] REPOSITORY Education (NUTRWS) SRAVANI HOLLOWAY ([id number]) 1960 F Date Time Provider Department 12/19/17 1:15 PM SHANTE PFEIFFER) FELICITAS Reason for Visit: Patient Education [91] Assessment [673] Progress Notes: Shante Pfeiffer, MS ALYSSA LD 12/19/2017 1:54 PM Signed Nutrition Therapy Initial Assessment Patient states reason for visit: diabetes Activity: Patient's exercise is: Activities of Daily Living: light Additional Activity: Lightly active (Light exercise: planned physical activity 1-3 days/week) Gym-1-2 x per week stairs, bike, treadmill-10 min-30 min Walk to get around Standing, movement at work Patient's symptoms are: elevated glucose and cholesterol Pain: Is the patient having any pain that is interfering with oral/enteral intake? No 0 on a scale of 0 to 10 Diet History: Dinner- 2:00-chicken, corn, veg-medley, water or milk Sleep 2 hours to be at work at 10 Lunch- 3 a.m.crackers or pbj on wheat, chips-potato, soda; may have can of pears Breakfast:- sandwich/egg. Sleep two hours Beverages - water, soda, milk Work nights Allergies: Patient has no known allergies. Medications: Current Outpatient Prescriptions: meloxicam (MOBIC) 15 mg tablet TAKE 1 TABLET BY MOUTH ONCE DAILY X 2 WEEKS THEN DAILY NEEDED FOR PAIN TAKE WITH FOOD Disp: 30 tablet Rfl: 1 omeprazole (PRILOSEC) 20 mg capsule TAKE 1 CAPSULE BY MOUTH DAILY BEFORE BREAKFAST. 1/2 HR BEFORE MEAL. Disp: 30 capsule Rfl: 5 atorvastatin (LIPITOR) 10 mg tablet Take 1 tablet by mouth daily at bedtime. For cholesterol. Disp: 30 tablet Rfl: 2 ACETAMINOPHEN (TYLENOL ORAL) Take by mouth. Disp: Rfl: No current facility-administered medications for this visit. Anthropometrics: Height: Last 1 Encounter Ht Readings: Date: Ht: 12/19/2017 155.6 cm (5' 1.25) Current weight: Last 1 Encounter Wt Readings: Date: Wt: 12/19/2017 58.1 kg (128 lb) Body mass index is 23.99 kg/m?. Resting Metabolic Rate: 1120 NUTRITION ASSESSMENT: Malnutrition Screening Significant unintentional weight loss? No Eating less than 75% of usual intake for more than 2 weeks? No RECOMMENDED MALNUTRITION DIAGNOSIS: NO MALNUTRITION IDENTIFIED Educational materials provided: Cholesterol Lowering Strategies, Healthy Eating for a Low Fat, Low Cholesterol Diet, Fiber (Improving your health with), Plant Based Sources of [place] 3 Fats and Mediterranean Diet READINESS TO LEARN Cognitive ability: Alert and oriented Motivation to learn: Interested Family support: High - Very involved in pt care Instruction provided to: Patient and Daughter Patient learns best by: Individual Instruction Factors affecting learning: None Physical limitations affecting learning: None Patient presents for initial MNT as relates new diagnosis diabetes, also hyperlipidemia. Works nights, gets very low sleep typically 4 hours in 2 hour increments. Takes 3 small meals, includes regular soda daily. Exercise less than recommended, stands at work. Nutrition Diagnosis: Food and nutrition related knowledge deficit, related to; lack of prior exposure to information , as evidenced by new medical diagnosis. Nutrition Intervention 12/19/2017: modify type and amount of food or beverage 1. Increase length of sleep, try for at least 6 hours in one stretch 2. All beverages calorie free and sugar free 3. Try for at least 30 min cardio most days 4. First meal within an hour of waking, then every 4-5 hours for next meal with regular consistent mals 1. follow a low-fat low-cholesterol diet 2. Do not skip meals. Cholesterol levels may be higher when you eat fewer meals. 3. Consume whole grains (whole grain breads/cereals, oatmeal, barley, popcorn). Include 20-35 grams of fiber per day. 4. Consume fresh/frozen fruit and vegetables (blueberries, nectarines, raspberries, apples, apricots, figs, prunes, dark leafy greens and include a variety of colors) 5. Consume lean protein (chicken, turkey breast, fish lean beef and pork). Avoid eating red meats more than twice per week. Aim for cheese and meats with 3 grams of fat or less per ounce. 6. Use low fat cooking methods such as baking, broiling, roasted, and grilled 7. Use healthy fats such as olive oil, flaxseed oil, walnuts, almonds, pecans, olives and avocado but in limited amounts. 8. Increase foods rich in omega-3 fatty acids (salmon, tuna, mac, sardines, carlos) Aim for 2 servings per week (6 ounces total). Almonds/walnuts and ground flaxseed (2 Tablespoons/day). 10. Read food labels. Avoid products made with partially hydrogenated fats/oils. 11 Use fucntional foods:Plant sterols and stanols (1.3 grams plant sterols or 3.4 grams plant stanols per day); 3 g/d of glucan fiber from oats and barley; 7g/day or more fro psyllium seed husk such as Metamucil; 25 g/day soy protien; 1.5 oz/day tree nuts. 12. If you are overweight, losing weight will help lower your total cholesterol level and raise your HDL level. Try using the Healthy Plate method. 13. Be physically active for at least 30-45 minutes per day 5-6 days per week. Nutrition Monitoring AND Evaluation: labs in target range Criteria: patient update Need for Follow up: 6-8 weeks Referred/Supervised by: Chris/Evangelist MARIN Billing Type: Initial Assess/15 min 2 units SIGNATURE: Shante Pfeiffer MS RD LD PATIENT NAME: Sravani Holloway DATE: December 19, 2017 TIME: 1:13 PM Shante Pfeiffer MS RD LD 12/19/2017 1:41 PM Signed 1. Increase length of sleep, try for at least 6 hours in one stretch 2. All beverages calorie free and sugar free 3. Try for at least 30 min cardio most days 4. First meal within an hour of waking, then every 4-5 hours for next meal with regular consistent mals 1. follow a low-fat low-cholesterol diet 2. Do not skip meals. Cholesterol levels may be higher when you eat fewer meals. 3. Consume whole grains (whole grain breads/cereals, oatmeal, barley, popcorn). Include 20-35 grams of fiber per day. 4. Consume fresh/frozen fruit and vegetables (blueberries, nectarines, raspberries, apples, apricots, figs, prunes, dark leafy greens and include a variety of colors) 5. Consume lean protein (chicken, turkey breast, fish lean beef and pork). Avoid eating red meats more than twice per week. Aim for cheese and meats with 3 grams of fat or less per ounce. 6. Use low fat cooking methods such as baking, broiling, roasted, and grilled 7. Use healthy fats such as olive oil, flaxseed oil, walnuts, almonds, pecans, olives and avocado but in limited amounts. 8. Increase foods rich in omega-3 fatty acids (salmon, tuna, mac, sardines, carlos) Aim for 2 servings per week (6 ounces total). Almonds/walnuts and ground flaxseed (2 Tablespoons/day). 10. Read food labels. Avoid products made with partially hydrogenated fats/oils. 11 Use fucntional foods:Plant sterols and stanols (1.3 grams plant sterols or 3.4 grams plant stanols per day); 3 g/d of glucan fiber from oats and barley; 7g/day or more fro psyllium seed husk such as Metamucil; 25 g/day soy protien; 1.5 oz/day tree nuts. 12. If you are overweight, losing weight will help lower your total cholesterol level and raise your HDL level. Try using the Healthy Plate method. 13. Be physically active for at least 30-45 minutes per day 5-6 days per week. Document on: 12/19/2017 by: Shante Pfeiffer [[id number]] of: Billing Associate Worksheet Document on: 12/19/2017 by: Shante Pfeiffer [[id number]] of: After Visit Summary Other instructions from your clinician: 1. Increase length of sleep, try for at least 6 hours in one stretch 2. All beverages calorie free and sugar free 3. Try for at least 30 min cardio most days 4. First meal within an hour of waking, then every 4-5 hours for next meal with regular consistent mals 1. follow a low-fat low-cholesterol diet 2. Do not skip meals. Cholesterol levels may be higher when you eat fewer meals. 3. Consume whole grains (whole grain breads/cereals, oatmeal, barley, popcorn). Include 20-35 grams of fiber per day. 4. Consume fresh/frozen fruit and vegetables (blueberries, nectarines, raspberries, apples, apricots, figs, prunes, dark leafy greens and include a variety of colors) 5. Consume lean protein (chicken, turkey breast, fish lean beef and pork). Avoid eating red meats more than twice per week. Aim for cheese and meats with 3 grams of fat or less per ounce. 6. Use low fat cooking methods such as baking, broiling, roasted, and grilled 7. Use healthy fats such as olive oil, flaxseed oil, walnuts, almonds, pecans, olives and avocado but in limited amounts. 8. Increase foods rich in omega-3 fatty acids (salmon, tuna, mac, sardines, carlos) Aim for 2 servings per week (6 ounces total). Almonds/walnuts and ground flaxseed (2 Tablespoons/day). 10. Read food labels. Avoid products made with partially hydrogenated fats/oils. 11 Use fucntional foods:Plant sterols and stanols (1.3 grams plant sterols or 3.4 grams plant stanols per day); 3 g/d of glucan fiber from oats and barley; 7g/day or more fro psyllium seed husk such as Metamucil; 25 g/day soy protien; 1.5 oz/day tree nuts. 12. If you are overweight, losing weight will help lower your total cholesterol level and raise your HDL level. Try using the Healthy Plate method. 13. Be physically active for at least 30-45 minutes per day 5-6 days per week. Primary Visit Diagnosis:Controlled type 2 diabetes mellitus without complication, without long-term current use of insulin (HCC) [E11.9] Other Visit Diagnoses:Hyperlipidemia, mixed [E78.2] Dietary counseling [Z71.3] During your visit today, we recorded the following information about you: Weight Height 58.1 kg 1.556 m Allergies As of Date: 12/19/2017 (No Known Allergies) Date Reviewed: 12/19/2017 Reviewed by: Shante Pfeiffer - Fully Assessed Prescriptions as of 12/19/2017 Sig: MELOXICAM 15 MG TABLET TAKE 1 TABLET BY MOUTH ONCE D* OMEPRAZOLE 20 MG CAPSULE,HANS* TAKE 1 CAPSULE BY MOUTH DAILY* ATORVASTATIN 10 MG TABLET Take 1 tablet by mouth daily * TYLENOL ORAL Take by mouth. Encounter Status:Closed by SHANTE RAPHAEL MS, RD on 12/19/17 PROGRESS Observed: 12/19/2017 Status: COMPLETED Source: MODE 1:09 PM [facility] REPOSITORY O ID: [id number] Author: Shante Pfeiffer Service: (none) Author Type: Registered Dietitian Type: Progress Notes Filed: 12/19/2017 1:54 PM Note Text: Nutrition Therapy Initial Assessment Patient states reason for visit: diabetes Activity: Patient's exercise is: Activities of Daily Living: light Additional Activity: Lightly active (Light exercise: planned physical activity 1-3 days/week) Gym-1-2 x per week stairs, bike, treadmill-10 min-30 min Walk to get around Standing, movement at work Patient's symptoms are: elevated glucose and cholesterol Pain: Is the patient having any pain that is interfering with oral/enteral intake? No 0 on a scale of 0 to 10 Diet History: Dinner- 2:00-chicken, corn, veg-medley, water or milk Sleep 2 hours to be at work at 10 Lunch- 3 a.m.crackers or pbj on wheat, chips-potato, soda; may have can of pears Breakfast:- sandwich/egg. Sleep two hours Beverages - water, soda, milk Work nights Allergies: Patient has no known allergies. Medications: Current Outpatient Prescriptions: meloxicam (MOBIC) 15 mg tablet TAKE 1 TABLET BY MOUTH ONCE DAILY X 2 WEEKS THEN DAILY NEEDED FOR PAIN TAKE WITH FOOD Disp: 30 tablet Rfl: 1 omeprazole (PRILOSEC) 20 mg capsule TAKE 1 CAPSULE BY MOUTH DAILY BEFORE BREAKFAST. 1/2 HR BEFORE MEAL. Disp: 30 capsule Rfl: 5 atorvastatin (LIPITOR) 10 mg tablet Take 1 tablet by mouth daily at bedtime. For cholesterol. Disp: 30 tablet Rfl: 2 ACETAMINOPHEN (TYLENOL ORAL) Take by mouth. Disp: Rfl: No current facility-administered medications for this visit. Anthropometrics: Height: Last 1 Encounter Ht Readings: Date: Ht: 12/19/2017 155.6 cm (5' 1.25) Current weight: Last 1 Encounter Wt Readings: Date: Wt: 12/19/2017 58.1 kg (128 lb) Body mass index is 23.99 kg/m?. Resting Metabolic Rate: 1120 NUTRITION ASSESSMENT: Malnutrition Screening Significant unintentional weight loss? No Eating less than 75% of usual intake for more than 2 weeks? No RECOMMENDED MALNUTRITION DIAGNOSIS: NO MALNUTRITION IDENTIFIED Educational materials provided: Cholesterol Lowering Strategies, Healthy Eating for a Low Fat, Low Cholesterol Diet, Fiber (Improving your health with), Plant Based Sources of [place] 3 Fats and Mediterranean Diet READINESS TO LEARN Cognitive ability: Alert and oriented Motivation to learn: Interested Family support: High - Very involved in pt care Instruction provided to: Patient and Daughter Patient learns best by: Individual Instruction Factors affecting learning: None Physical limitations affecting learning: None Patient presents for initial MNT as relates new diagnosis diabetes, also hyperlipidemia. Works nights, gets very low sleep typically 4 hours in 2 hour increments. Takes 3 small meals, includes regular soda daily. Exercise less than recommended, stands at work. Nutrition Diagnosis: Food and nutrition related knowledge deficit, related to; lack of prior exposure to information , as evidenced by new medical diagnosis. Nutrition Intervention 12/19/2017: modify type and amount of food or beverage 1. Increase length of sleep, try for at least 6 hours in one stretch 2. All beverages calorie free and sugar free 3. Try for at least 30 min cardio most days 4. First meal within an hour of waking, then every 4-5 hours for next meal with regular consistent mals 1. follow a low-fat low-cholesterol diet 2. Do not skip meals. Cholesterol levels may be higher when you eat fewer meals. 3. Consume whole grains (whole grain breads/cereals, oatmeal, barley, popcorn). Include 20-35 grams of fiber per day. 4. Consume fresh/frozen fruit and vegetables (blueberries, nectarines, raspberries, apples, apricots, figs, prunes, dark leafy greens and include a variety of colors) 5. Consume lean protein (chicken, turkey breast, fish lean beef and pork). Avoid eating red meats more than twice per week. Aim for cheese and meats with 3 grams of fat or less per ounce. 6. Use low fat cooking methods such as baking, broiling, roasted, and grilled 7. Use healthy fats such as olive oil, flaxseed oil, walnuts, almonds, pecans, olives and avocado but in limited amounts. 8. Increase foods rich in omega-3 fatty acids (salmon, tuna, mac, sardines, carlos) Aim for 2 servings per week (6 ounces total). Almonds/walnuts and ground flaxseed (2 Tablespoons/day). 10. Read food labels. Avoid products made with partially hydrogenated fats/oils. 11 Use fucntional foods:Plant sterols and stanols (1.3 grams plant sterols or 3.4 grams plant stanols per day); 3 g/d of glucan fiber from oats and barley; 7g/day or more fro psyllium seed husk such as Metamucil; 25 g/day soy protien; 1.5 oz/day tree nuts. 12. If you are overweight, losing weight will help lower your total cholesterol level and raise your HDL level. Try using the Healthy Plate method. 13. Be physically active for at least 30-45 minutes per day 5-6 days per week. Nutrition Monitoring AND Evaluation: labs in target range Criteria: patient update Need for Follow up: 6-8 weeks Referred/Supervised by: Chris/Evangelist MARIN Billing Type: Initial Assess/15 min 2 units SIGNATURE: Shante Pfeiffer MS RD LD PATIENT NAME: Sravani Holloway DATE: December 19, 2017 TIME: 1:13 PM URGENT CARE VISIT Observed: 12/16/2017 Status: F Source: [place] REPORT 12:31 PM [facility] [address] [place] [address] [address] [place] [address] OFFICE VISIT Date of Service: 12/16/17 MR#: [id number] Acct: [id number] Name: SRAVANI HOLLOWAY Rep #: [id number] : 1960 Provider: RONN Espino Age/Sex: 57/F Location: [facility] Status: Signed Intake Vital Signs12/16/17 Height 5 ft 2 in Intake Visit Reasons: HAND INJURY [place] Chief Complaint: right hand pain Allergies No Known Allergies Allergy (Verified 12/16/17 10:32) PFSH Medical History Arthritis (Acute) Neck pain (Acute) Social History Smoking Status: Former smoker alcohol intake: never HPI HPI Chief Complaint: right hand pain Details: SRAVANI HOLLOWAY, is a 57 F who presents to the office today for the above chief complaint stating she was rushing and got it caught between two carts at work about 5:30am morning. She did not go to work night because it hurt. She states she also got a small rigght hand cut that didn't need stitches and was teated by the nurse with gauze and bandage. She states was sent here today for evaluation/xray of her hand. She states it hurts alot sometimes and other times it is ok. ROS Const Constitutional: No body ache, chills, fatigue, fever(s), night sweats, change in appetite, weakness, frequent falls, headache(s) or excessive sweating Eyes Eyes: No visual disturbances, light sensitivity, eye pain or change in vision ENT ENT: No ear pain, ear discharge, hearing loss, dizziness/vertigo, nasal discharge, difficulty swallowing, sore throat, neck pain or headache(s) Resp Respiratory: No cough, chest congestion, hemoptysis, shortness of breath or wheezing Cardio Cardiology: No shortness of breath, irregular heart rhythm, lightheadedness, chest pain at rest, chest pain with exertion, generalized swelling, orthopnea, palpitations or excessive sweating Gastro GI: No difficulty swallowing, abdominal pain, bloating, change in bowel habits, diarrhea, blood in stool, Black,tarry stools, nausea/dyspepsia or vomiting Genitourinary-Female: No burning urination, urinary frequency, urinary urgency, blood in urine or Vaginal Itching Musc Musculoskeletal: Positive for joint pain (see hPI); no back pain, numbness, tingling or neck pain Skin Skin: Positive for other (small cut right hand); no lesions, itching or rash Breast Breast: Positive for other (small cut right hand) Neuro Neurology: No visual disturbances, numbness, tingling, abnormal speech, confusion, unsteady gait/balance, dizziness, weakness, frequent falls, loss of vision, headache(s) or memory loss Psych Psychiatric: No change in appetite, No confusion, No memory loss, No anxiety, No depression Endo Endocrine: No fatigue, cold intolerance, excessive sweating, flushing, heat intolerance or increased thirst/drinking Aller/Imm Allergy/Immunologic: No wheezing, itchy eyes, food intolerance, seasonal allergy symptoms or hives Jaspal/Lymp Hematologic/Lymphatic: No easy bruising Exam Const General: cooperative, no acute distress Orientation: alert, oriented x3 [facility] Head: normal to inspection, normocephalic Ears: hearing grossly normal bilaterally, external ears normal Face and sinus: sinuses nontender, normal facial exam Mouth: oral mucosae normal, oropharynx normal, tongue normal Eyes General: appearance normal, both eyes and all related structures Eyelids: eyelids normal Conjunctivae: conjunctivae normal Sclera: sclerae normal Neck Neck: normal visual inspection, supple Lymphatic: no lymphadenopathy noted Chest Chest palpation AND inspection: normal inspection of the chest Resp Effort AND Inspection: normal respiratory effort, able to speak in complete sentences, symmetric chest movement, no audible wheezes, no cough, not labored, no respiratory distress Auscultation: Bilateral: Clear to Auscultation Cardio Rate: regular rate Rhythm: regular rhythm Heart Sounds: S1 normal, S2 normal Musc Musculoskeletal: Yes joint tenderness (mild, right 5th MCP mainly. Full ROM, Full strenth) Skin General: no rashes or lesions noted Trauma: lacerations and/or abrasions noted (small semi annular lac, less elías 1cm, healing, no evidence of heme. ) Neuro General: alert, oriented x3, moves all extremities, gait normal, normal sensation to monofilament, no focal motor deficits Speech: speech normal Gait: normal gait Motor: muscle tone normal throughout Extrem General: abnormal to inspection, normal gait Other: Right hand with small superficial lac healing well, (did not require sutures) lateral volar right hand. Point tender distal hand, laterally over 5th mcp joint, and proximal finger with mild swelling. Full ROM, and good strength. 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 Crushing injury of right hand and finger, initial encounter S67.21XA 2. Laceration of right hand without foreign body, initial encounter S61.411A Plan Adult Tetanus updated today RTW no restrictions effective today 12/16/2016- (she does not work for another 2 days) Ice /Ibuprofen PRN Keep superficial laceration right hand clean and dry over the weekend. Follow up if needed only. Final xray of right hand returned negative for fracture. Orders Orders: Medications Discontinued: Boostrix Tdap (diphth,pertus(acell),tetanus) Dis0.5 mL IM ONCE NS Z23 Wen Knight continued Reason: Ordered/Entered in error Adacel (Tdap Adolesn/Adult)(PF)2Lf-(2.5-5-3-5mcg)-50.5 mL IM ONCE NS Z23 Wen Knight Lf/0.5 mL IM susp (diph,pertuss(acel),tet vac(PF)) Discontinued Reason: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
== END 2018-06-05 21:31 | disposition home or self-care (01) ==
PROVIDERS: Emergency Provider Emergency Medicine; Family Provider Family Medicine; PCP Family Medicine
DX: J06.9 Acute upper respiratory infection, unspecified (principal); J44.9 Chronic obstructive pulmonary disease, unspecified; Z87.891 Personal history of nicotine dependence
CPT/HCPCS: 71046; 94640; 99283

== ENCOUNTER 2019-09-04 19:31 | Emergency (ER) | payer OTHER, SELFPAY ==
[2019-09-04 19:32] VITALS: BP 142/90; PULSE 107; RESP 17; TEMP 36.3; O2SAT 94; BMI 25.7
--- NOTE | 2019-09-04 19:45 | CT_ITS ---
STUDY: CT BRAIN WITHOUT CONTRAST REASON FOR EXAM: Female, 59 years old. HIT HER HEAD YESTERDAY ON METAL AT WORK, HEADACHE SINCE -- HX:HTN RADIATION DOSAGE (If Supplied By Facility): CTDIvol = ( 44.99 ) mGy, DLP = ( 745.49 ) mGycm TECHNIQUE: Transaxial CT imaging of the brain was performed without administration of intravenous contrast material. Individualized dose optimization techniques were used for this CT. COMPARISON: No relevant priors. FINDINGS: Normal soft tissue structures. Normal calvarium. Normal size ventricles and extra-axial spaces for the patient''s age. Normal white matter tracts of the cerebral hemispheres. Normal basal ganglia and thalami. Normal brainstem. Normal cerebellum. There is no intracranial hemorrhage. There are no findings of an acute ischemic infarction. Normal visualized paranasal sinuses. CT/Brain/Head without Contrast IMPRESSION: Normal unenhanced CT scan of the brain. Electronically Signed: Lizy Bowie MD at 20:07 EDT Tel , Service support ,
--- NOTE | 2019-09-04 19:50 | ED.DCSUM_ITS ---
- ER Visit Summary Date of Service: 09/04/19 Chief Complaint: Head injury [] History of Present Illness: The patient is a 59 F [presents to the emergency department after injuring her head while at work yesterday. Patient states that she was bent over underneath a machine and when she tried to stand up hit her head on the undersurface of the machine. No loss of consciousness. Patient did have pain right away. Patient continues to have headache and is having hard time sleeping at night. Patient has had nausea but no vomiting. She denies any photophobia. She has taken Motrin during the day and it does seem to help her pain at times. Pain is to the left posterior occiput. Has history of diabetes, hypertension, and high cholesterol.] Physical Examination: [HEENT-PERRLA, EOMI. Cranial nerves II through XII grossly intact. TMs clear. Mucous membranes moist. No adenopathy. No external evidence of trauma to her head. No bony depressions noted. No hemotympanum. Cardiovascular-regular rate and rhythm without murmur or ectopy Lungs-clear to auscultation, chest wall stable without crepitus or subcu emphysema Abdomen-normoactive bowel sounds, soft, nontender, no rebound or rigidity, no peritoneal signs. Neuro qhit-vzcbkt-mhqw and heel michaels testing within normal limits, negative Romberg, negative for drift, fundi benign Extremities-intact ?4, normal range of motion, normal pulses, atraumatic] Test Results: [CT scan of the brain without contrast was normal] Emergency Department Course and Treatment: [] Treatment Plan: [Patient does not feel that she needs any work restrictions. Patient advised use ibuprofen or Tylenol for discomfort. Patient instructed to get lots of rest.] Patient to follow-up with [facility] care in 3 to 5 days. Disposition: [Discharged home in stable condition] Impression: [Closed head injury/concussion] This note was generated with [employer] dictation software. It may contain incorrect words, spelling, and punctuation that were not noted in review of the chart prior to signing
--- NOTE | 2019-09-04 20:12 | DCINST.ED_ITS ---
ED Disposition - Plan for ED Patient: Instructions: ED Head Injury Adult Referrals: Corporate,[facility], [place] [GROUP OF PHYSICIANS] - 3-5 Days
--- NOTE | 2019-09-04 20:12 | ED.DEP ---
ED Disposition - Plan for ED Patient: Instructions: ED Head Injury Adult Referrals: Corporate,[facility] [GROUP OF PHYSICIANS] - 3-5 Days
[2019-09-04 20:56] VITALS: PULSE 99; RESP 16; O2SAT 98
== END 2019-09-04 20:57 | disposition home or self-care (01) ==
LOC: ED 20:15
PROVIDERS: Emergency Provider Emergency Medicine; PCP Family Medicine
DX: S06.0X0A Concussion without loss of consciousness, initial encounter (principal); W22.8XXA Striking against or struck by other objects, initial encounter; Y93.9 Activity, unspecified; Y92.9 Unspecified place or not applicable; I10 Essential (primary) hypertension; E11.9 Type 2 diabetes mellitus without complications; E78.00 Pure hypercholesterolemia, unspecified; Z79.899 Other long term (current) drug therapy; Z72.0 Tobacco use
CPT/HCPCS: 70450; 99282

== ENCOUNTER 2019-11-30 09:00 | Outpatient (RCR) | payer OTHER, SELFPAY ==
[2019-10-15 07:05] VITALS: BMI 25.7
--- NOTE | 2019-10-26 10:43 | HP.PTEVAL_ITS ---
Patient's Visit Information SUKH HOLLOWAY is a 59 year old F referred to Physical Therapy by RONN Dior with a diagnosis of Concussion without LOC. Date of Evaluation: 10/26/19 Physical Therapist: Cassius Lyon, JOHNNIET, OCS, CSCS - Visit Plan Frequency: 2-3x /Week Duration: 4 Weeks Plan: 3x/week for 4weeks as sneeded for positional checks and adaptation progression for vestibular therapy. - Subjective Hit head a couple times working at [employer] and bending down to get a box. Hit head back in July around the . [facility] Hospital because she hit her head. Still has sharp pain in head pointing to R front. Also gets dizzy and has to stop for a minute bending to get box for a couple minutes. LEVIN is daily and intermittent but not sure what causes it, typically lasting 5 minutes or so. . No sensitivyt to light or sound. No tingly but numb in hands sometimes not unusual for her. Neck apin in a.m.on back of neck. Sometimes trouble sleeping due to LEVIN but no dizzyness lying down. No balance deficits or falls. 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 Basic ADLs are getting done. Goes to [employer] for fun and was there Tuesday without issues. - Pain neck Pain Intensity (Out of 10): 1 Pain Intensity Range: 0, 1 LEVIN Pain Intensity (Out of 10): 1 Pain Intensity Range: 0, 6 - Objective Walks normal and trasnfers without need for UE. Steps are reciprocal with out rail. Posture is fair. cervical AROM is symmetrical and without pain. Dizzy with R hallpike and not with L, no obviosu nystagmus. Treated with R Anne then negative for dizzyness with HD. Oculomotor : no nystagmus with gaze or head shake. - skew eye deviation. - ocular tilt. convergence is normal. Saccades are tough for patient but asymptomatic. Pursuit is normal. - head thrust. VOR causes slgiht dizzyness horizontal after 20 seconds for a few seconds and becomes tougher for aptient to stay focussed. UE AROM WFL and strength symmetrical at 4-/5 throughout UE. - Balance Scores Functional Gait Assessment Score: 29 % Disability: 3.3400 CATSIB Score (Max score 120 seconds): 120 - Goals Goal 1:: Abolish dizzyness 100% with bending at work Goal Time Frame: 4-6 Weeks Goal 2:: Pt feel 90% back to normal Goal Time Frame: 4-6 Weeks Goal 3:: DHI score <2/10 Goal Time Frame: 4-6 Weeks - Rehabilitation Potential Physical Therapy Diagnosis: Concussion with vestiubular symptoms. Rehabilitation Potential: Fair - Anticipated Interventions Patient/Client Instruction: Educate patient on: Condition, Plan of Care For the Purpose of:: To decrease pain, To increase tolerance to activity/condition/position Comment: positional and adaptation exercises, habituation as needed. For the Purpose of:: To increase tolerance to activity/condition/position Thank you for the opportunity to evaluate your patient. For Medicare and Medicare HMO plans, please review the plan of care and approve it. It will need to be FAXED BACK to us at [phone] for Medicare purposes. For Medicare only, by signing this I certify the plan of care. Please let me know if there are questions or concerns regarding this plan of care. Physician Signature: Date:
--- NOTE | 2019-11-15 11:13 | HP.PTREVAL_ITS ---
RONN Dior, It has been my pleasure to treat SUKH HOLLOWAY over the last 7 visits for Concussion without LOC. Please see the progress note below for an update on the physical therapy plan of care! Subjective: Bumped head again last week coming up and barely hitting it on a drawer. Did not give her symptoms. No dizzyness since Tuesday. Has done e xercises without dizzyness. Neck pain is intermittent coming and going up to 7/10 withotu reason maybe the way she sleeps. Throbbing LEVIN last night at work but otherwise has been good. Had some prior LEVIN before concussion. Balance feels OK. Objective/Function: No dizzyness created today, no nystagmus. FGA is good. Pt feels back to normal and is doing all activity she needs to do at work. Plan Plan: f/u one more time to ensure back to normal over longer period of time. Mid November. Call prior if symptoms Goals Goal 1:: Abolish dizzyness 100% with bending at work Goal Time Frame: 4-6 Weeks Goal Progress: Goal Met Goal 2:: Pt feel 90% back to normal Goal Time Frame: 4-6 Weeks Goal Progress: Goal Met Goal 3:: DHI score <2/10 Goal Time Frame: 4-6 Weeks Goal Progress: Goal Met Anticipated Interventions Patient/Client Instruction: Educate patient on: Condition, Plan of Care For the Purpose of:: To decrease pain, To increase tolerance to activity/condition/position Comment: positional and adaptation exercises, habituation as needed. For the Purpose of:: To increase tolerance to activity/condition/position Please do not hesitate to contact me at [phone] by phone or if you have questions or concerns regarding this new plan of care! Sincerely, Cassius Lyon, DPT, OCS, CSCS
--- NOTE | 2020-02-05 09:58 | HP.PTDCSUM ---
It has been my pleasure to treat SUKH HOLLOWAY referred by RONN Dior, with the diagnosis of Concussion without LOC for a total of 8 visit(s). Discharge Date: 11/30/19 Please see the following information for a summary of their discharge status. Subjective: No dizzy. no LEVIN. No neck pain to very little. Back to normal for the most part. Balance feels OK. neck Pain Intensity (Out of 10): 0 LEVIN Pain Intensity (Out of 10): 0 % Improvement: 100 Objective/Function: FGA is perfect, stadning foam ec not a problem. MSQ psotiions are fine. - B hallpike. PT BACK TO NORMAL AND DOING WELL. Goal 1:: Abolish dizzyness 100% with bending at work Goal Progress: Goal Met Goal 2:: Pt feel 90% back to normal Goal Progress: Goal Met Goal 3:: DHI score <2/10 Goal Progress: Goal Met Plan: D/C If there are questions or concerns regarding this patient's physical therapy, please feel free to call me at [phone]. Thank you for the referral of this patient. Sincerely, Cassius Lyon, DPT, OCS, CSCS
== END 2019-11-30 19:00 | disposition home or self-care (01) ==
LOC: PT 09:00
PROVIDERS: PCP Family Medicine; Referring Provider Physician Assistant Surgical; Visit Provider Physician Assistant Surgical
DX: S06.0X0D Concussion without loss of consciousness, subsequent encounter (principal)
CPT/HCPCS: 97162; 97164; 97530

== ENCOUNTER 2019-12-17 08:17 | Emergency (ER) | payer OTHER, SELFPAY ==
[2019-12-05 07:27] VITALS: BMI 25.7
[2019-12-17 08:22] VITALS: BP 153/87; PULSE 79; RESP 17; TEMP 36.7; O2SAT 98; BMI 24.7
[2019-12-17 08:32] VITALS: BP 153/87; PULSE 79; RESP 17; TEMP 36.7; O2SAT 98
--- NOTE | 2019-12-17 08:43 | EKG12_ITS ---
Test Reason : SOB Blood Pressure : / mmHG Vent. Rate : 073 BPM Atrial Rate : 073 BPM P-R Int : 128 ms QRS Dur : 072 ms QT Int : 380 ms P-R-T Axes : 038 005 056 degrees QTc Int : 418 ms Normal sinus rhythm Low Voltage QRS (Limb Leads) Confirmed by KRISTEN WATERS, STACIE ([id number]), dealer support technician ALEXEY YAN ([id number]) on 12/19/2019 10:48:46 AM Referred By: RANDEE Confirmed By:STACIE PETERSON MD
--- NOTE | 2019-12-17 08:43 | RAD_ITS ---
STUDY: X-RAY CHEST REASON FOR EXAM: Female, 59 years old. COUGH, SORE THROAT, EAR ACHE, RIGHT SIDED PAIN W/COUGH X 1 WK TECHNIQUE: PA and lateral views of the chest. COMPARISON: Comparison is made with prior study dated 06/05/2018. FINDINGS: The lungs are clear and expanded. There is no demonstrated pleural abnormality. Normal size heart. Normal mediastinum and macie. Normal visualized pulmonary arteries. Normal visualized aortic arch and descending thoracic aorta. Normal visualized thoracic spine. Normal visualized ribs, clavicles, and shoulders. There is no demonstrated abnormality of the visualized soft tissue structures of the upper abdomen. RAD/Chest 1 View (Portable) IMPRESSION: Normal x-ray examination of the chest. Electronically Signed: Luiz Crain, at 9:58 EDT , Service support ,
--- NOTE | 2019-12-17 08:52 | ED.DCSUM_ITS ---
History of Present Illness Chief Complaint: Cold Sx Informant: Patient Narrative: Patient is a 59-year-old female who presents to the emergency department for multiple complaints. Her initial concern was left ear pain, sore throat and cough. The cough has been present over the past 2 weeks. It is occasionally productive of sputum. States that the ear pain and sore throat started this morning. She has been having intermittent abdominal pain on the right upper quadrant as well as an episode of substernal chest pain. She did go to urgent care for these complaints 3 days ago and was referred to the emergency department. She did not come at that time. She is still complaining of mild abdominal pain at this time. She is currently denying any chest pain. She does occasionally get dizzy episodes. She is not complaining of this now. She does not know any aggravating or relieving factors to any of her symptoms. She states she does think that there are sick contacts at her work. No known coronavirus exposures. She believes that she did have a fever one time but did not take her temperature. She is a diabetic but has not been able to take her medications lately due to not being able to afford them. She denies being on insulin. She does occasionally get an episode of diarrhea with her abdominal pain. She also had one episode of vomiting today. She denies any headache, stiff neck or rashes. Past Medical History - Allergies and Home Meds Allergies/Adverse Reactions: Allergies No Known Allergies Allergy (Verified 12/17/19 08:19) Primary Care Physician: Lucio Simpson MD [Primary Care Provider] - 3-5 Days Past Medical History: - - Diabetes Surgical History: no surgical history Smoking Status: Current every day smoker Alcohol: None Drugs: None Review of Systems All systems negative except as indicated General: Reports: Fever - Resolved. Denies: Chills, Sweats Eyes: Denies: Visual changes - bilaterally, Diplopia ENT: Reports: Left ear pain, Sore throat. Denies: Rhinorrhea Cardiovascular: Reports: Chest pain - Intermittent, none currently. Denies: Palpitations Respiratory: Reports: Cough, Sputum. Denies: Dyspnea, Dyspnea on exertion Gastrointestinal: Reports: Abdominal pain, Nausea, Vomiting, Diarrhea. Denies: Melena, Hematochezia Genitourinary: Denies: Dysuria, Hematuria, Frequency Musculoskeletal: Denies: Back pain, Extremity Pain Skin: Denies: Rash, Wounds Neurological: Denies: Headache, Weakness, Numbness Physical Exam Vital Signs/Narrative: Vital Signs Temp Pulse Resp BP Pulse Ox 12/17/19 08:32 98.1 F 79 17 153/87 H 98 12/17/19 08:22 98.1 F 79 17 153/87 H 98 General: Well nourished, Well developed, No Acute Distress Head: Normocephalic, Atraumatic Eyes: Perrl, EOMI ENT: Moist mucous membranes, No rhinorrhea, TM's clear, - - No tonsillar exudates, no erythema of the oropharynx. No swelling present. Symmetrical bilaterally.. Negative for: Nasal congestion Neck: Supple, Nontender Cardiovascular: Regular rate, Regular rhythm, No murmurs Respiratory: No distress, CTA bilaterally, Chest nontender Abdomen: Soft, Nondistended, Normal bowel sounds, Tender - Mild tenderness to right upper quadrant to deep palpation., - - No pain over McBurney's point.. Negative for: Guarding, Rebound tenderness, Yanez's sign Back: Nontender, Normal Inspection Extremities: Nontender, No edema. Negative for: Edema, Calf Tenderness Skin: Normal color, No rash Neurological: Alert, Oriented x3, Cranial nerves II-XII grossly intact, Normal Strength, Normal Sensation Psychological: Normal affect, Normal Mood Diagnostic/Tx/Re-eval - EKG Initial EKG Interpretation: - - Rate of 73 bpm and normal sinus rhythm. Normal intervals. Normal axis. No ST elevations or depressions appreciated. No T wave abnormalities. Prior EKG for comparison was performed on October 242013. This is similar in appearance. - Medical Decision Making Patient presents to the emergency department for multiple complaints as listed in HPI. Will check basic lab work as she has not been compliant with her diabetes medications. Lab work did not reveal any significant acute abnormality. Chest x-ray negative for pneumonia. Initial troponin negative. Urinalysis did come back positive for UTI and will send culture. We will start her on Keflex. Otherwise patient is nontoxic-appearing and appears well. Discharged home in stable condition. Coronavirus test is pending. She understands she needs to self isolate until results are back. She needs follow-up with her PCP if her symptoms start to return such as her abdominal pain and chest pain. If she develops any significant chest pain, shortness of breath she can return to the emerge depar tment at any time for further work-up and management of this. She understands and is agreeable with this plan. ED Disposition - Plan for ED Patient: Disposition: Home or Assisted Living Diagnosis: URI (upper respiratory infection), UTI (urinary tract infection) Instructions: ED Upper Resp Infec No Abx Tx, ED CYSTITIS Female Adult Prescriptions: Cephalexin [Keflex] 500 mg PO Q12 #14 cap Transmission Status: Received by [id number] Referrals: Lucio Simpson MD [Primary Care Provider] - 3-5 Days Additional Instructions: Please self isolate until coronavirus test has returned.
[2019-12-17 09:13] LABS: Mucous, Urine 0 SEEN /hpf (<or=2+)
[2019-12-17 09:16] LABS: Absolute Lymphocyte Count 1.96 X10^3/uL (0.83-4.51); Absolute Neutrophil Count 3.4 X10^3/uL (2.0-7.7); Basophil# 0.02 X10^3/uL; Basophil% 0.3 % (0-1); Eosinophil# 0.07 X10^3/uL; Eosinophils% 1.2 % (0-5); Hematocrit 41.4 % (37-47); Hemoglobin 13.7 g/dL (12.0-15.0); Lymphocyte # 1.96 X10^3/ul (4.0); Lymphocyte % 33.7 % (19-41); Mean Corp Hgb Conc 33.1 g/dL (32-36); Mean Corpuscular Hgb 29.4 pg (27.0-32.0); Mean Corpuscular Volume 88.8 fL (81-99); Mean Platelet Vol. 9.8 fl (6.2-12.0); Monocyte# 0.36 X10^3/uL; Monocyte% 6.2 % (0-10); NRBC Flagged by Analyzer 0 % (0-5); Neutrophil # 3.37 X10^3/uL (2.7-7.7); Neutrophil % 58.1 % (47-70); Platelet Count 231 K/mm3 (150-450); RBC Distribution Width CV 12.7 % (11.6-14.6); Red Blood Count 4.66 M/mm3 (4.2-5.4); White Blood Count 5.8 K/mm3 (4.4-11.0)
[2019-12-17 09:18] LABS: Color, Urine Yellow (Yellow); Glucose, Dipstick 100 mg/dl (Normal); Ketone-Dipstick Negative (Negative); Leukocyte Esterase-Dipstick 500 /ul (Negative); Nitrite-Dipstick Positive (Negative); Occult Blood-Urine 25 /ul (Negative); Protein-Dipstick Negative (Negative); Specific Gravity, Urine 1.025 (1.002-1.030); Urine Bilirubin Dipstick Negative (Negative); Urine Clarity Sl. Cloudy (Clear); Urine Urobilinogen Normal (Normal)
[2019-12-17 09:26] VITALS: BP 149/82; PULSE 78; RESP 18; TEMP 37; O2SAT 98
[2019-12-17 09:31] LABS: Bacteria 1+ /hpf (None Seen); Red Blood Cells-Urine 0-5 SEEN /hpf (0-5); Squamous Epithelial Cells - UA 0-5 SEEN /hpf (5-10); Trichomonas 0-5 SEEN /hpf (None Seen); White Blood Cells 25-50 SEEN /hpf (0-5)
[2019-12-17 09:42] LABS: ALB/GLOB Ratio 0.8 RATIO (0.9-2.4); AST(SGOT) 27 U/L (15-37); Alanine Aminotransfer ALT/SGPT 47 U/L (13-56); Albumin, Serum 3.5 g/dL (3.2-5.0); Alkaline Phosphatase 180 U/L (45-117); Anion Gap 5 (5-15); BUN 12 mg/dL (7-18); BUN/Creat Ratio 18.5 RATIO (10-20); Calcium,Total 8.7 mg/dL (8.5-10.1); Chloride 106 mmol/L (98-107); Creatinine, Serum 0.65 mg/dL (0.55-1.02); EST Glomerular Filtration Rate 100 mL/min (>60); Est Glom Filt Rate - Afr Amer 121 mL/min (>60); Estimated Creatinine Clearance 78.99 ml/min; Globulin 4.2 g/dL (2.2-4.2); Glucose 168 mg/dL (74-106); Lipase 137 U/L (73-393); Magnesium 1.6 mg/dL (1.6-2.6); Potassium 3.7 mmol/L (3.5-5.1); Protein, Total 7.7 g/dL (6.4-8.2); Sodium Level 140 mmol/L (136-145)
[2019-12-17 10:25] VITALS: RESP 17
== END 2019-12-17 10:36 | disposition home or self-care (01) ==
PROVIDERS: Emergency Provider Emergency Medicine; PCP Family Medicine
DX: J06.9 Acute upper respiratory infection, unspecified (principal); N39.0 Urinary tract infection, site not specified; E11.9 Type 2 diabetes mellitus without complications; Z91.14 Patient's other noncompliance with medication regimen; F17.200 Nicotine dependence, unspecified, uncomplicated
CPT/HCPCS: 36415; 71045; 80053; 81001; 83690; 83735; 84484; 85025; 87077; 87086; 87088; 87186; 87635; 93005; 94799; 99282; U0003

== ENCOUNTER 2020-12-22 19:50 | Emergency (ER) | payer OTHER, SELFPAY ==
[2020-12-22 19:51] VITALS: BP 116/76; PULSE 107; RESP 18; TEMP 35.9; O2SAT 95; BMI 23.8
[2020-12-22] MEDS: Ibuprofen 600 MG Tablet PO (21:56)
--- NOTE | 2020-12-22 21:59 | RAD_ITS ---
STUDY: X-RAY - RIGHT KNEE REASON FOR EXAM: Female, 60 years old. Injury/Pain TECHNIQUE: 4 view(s) of the knee. COMPARISON: None. FINDINGS: Normal visualized distal femur. Normal visualized proximal tibia and fibula. Normal proximal tibiofibular articulation. There is no demonstrated fracture. There is mild degenerative arthrosis of the medial femorotibial compartment. Normal lateral femorotibial compartment. Normal patellofemoral articulation. There is no demonstrated joint effusion. The soft tissue structures are unremarkable. RAD/Knee 4 or More Views IMPRESSION: Degenerative arthrosis. Electronically Signed: Darío Gastelum MD at 22:57 EDT , Service support ,
--- NOTE | 2020-12-22 23:26 | EDS_ITS ---
HPI History of Present Illness Chief Complaint: Lower Extremity Injury Informant: patient Narrative Narrative: Patient is a 60-year-old female with history of arthritis presenting with right knee pain. Patient states she had a fall at work in February of last year and since then has had problems with her knee. She has been seen by [employer] [facility]. She was getting out of bed yesterday and she twisted her right knee trying to avoid the cat. She had immediate pain. She had to use her daughter to help her ambulate. Patient states the pain is most severe behind her knee. She does like her knee is swollen. She is been taking [id number] ibuprofen and Naprosyn with minimal relief of her symptoms. She denies associated numbness or tingling. No other complaints at this time. No other injuries reported. [facility] Medical History (Updated 12/22/20 @ 23:[address] Trinity Sifuentes DO) Arthritis Diabetes HTN (hypertension) Neck pain Home Medications ibuprofen 600 mg PO Q6H PRN PRN #20 tab 12/22/20 [Rx Last Taken Unknown] Allergy/AdvReac Type Severity Reaction Status Date / Time No Known Allergies Allergy Verified 12/17/19 08:19 Family History Father Cancer Sister Diabetes Social History Smoking Status: Current every day smoker tobacco type: cigarettes alcohol intake: never ROS ROS ED Constitutional Constitutional ED: Denies chills or fever(s) Eyes Eyes: Denies change in vision ENT ENT ED: Denies ear pain or rhinorrhea Cardiovascular Cardiovascular: Denies chest pain Respiratory/Chest Respiratory/Chest: Denies dyspnea Gastrointestinal Gastrointestinal: Denies abdominal pain or vomiting Genitourinary Genitourinary ED: Denies dysuria Musculoskeletal Musculoskeletal: Reports other Details: Right knee pain Integumentary Denies Abrasions or rash Neurologic Neurologic: Denies headache(s), paresthesias or weakness Psychiatric Psychiatric: Denies depression EXAM Physical Exam Const Vital Signs: 12/22/20 19:51 Temperature 96.7 F L Temperature Source Temporal Pulse Rate 107 H Respiratory Rate 18 Blood Pressure 116/76 Blood Pressure Mean 89 Pulse Ox 95 Oxygen Delivery Method Room Air Positive well nourished and well developed General Appearance ED: well developed HEENT normocephalic and atraumatic Neck full ROM Chest Wall inspection of chest normal Resp normal respiratory effort and clear to auscultation bilaterally Cardio regular rate and regular rhythm Cardio Narrative: 2+ bilateral DP pulses Extremity Extremity Narrative: Normal hips bilaterally. Extremities are equal length. Pelvis is stable. No deformity of the femur. Patient has tenderness palpation of the posterior lateral knee more over the IT band. She does have associated joint effusion of the right knee. No significant instability of the knee appreciated. Range of motion is limited secondary to pain. No associated warmth or erythema of the joint. Normal lower leg on exam. Neuro oriented x3 Neuro Narrative: No focal deficits appreciated Sensorium / Orientation: alert MDM MDM MDM Narrative Medical decision making narrative: Patient evaluated for worsening right knee pain after she twisted it yesterday. She has tenderness of her IT band on the right and I suspect she has a sprain to the knee. X-ray does not show any acute fracture. She does have an effusion on exam but none shown on films. X-ray interpreted by myself as well as radiology did not show any acute process. Patient is given Alfred wrap in the ER for compression. Counseled rice therapy. Discharged home with a prescription for Motrin 600 mg. Instructed to follow-up with either [employer]. from her prior knee injury and is also referred to orthopedics. Patient is given a work note per request. Radiography X-Ray: Read by ED Physician, Read by Radiologist and No Fracture Diagnostic Testing: Radiology Impression Knee X-Ray 12/22/20 21:59 IMPRESSION: Degenerative arthrosis. Electronically Signed: Darío Gastelum MD at 22:57 EDT , Service support , Discharge Plan Triage Chief Complaint: Lower Extremity Injury ED Provider: Trinity Sifuentes Dx/Rx/DC Orders Clinical Impression: Right knee sprain Instructions: ED Knee Sprain Prescriptions: New ibuprofen 600 mg tablet 600 mg PO Q6H PRN PRN (Reason: Pain Score 1-10/10) Qty: 20 RF: 0 Primary Care Provider: Lucio Simpson Referrals: Lucio Simpson MD [Primary Care Provider] - Wilfrido Burgos MD [STAFF PHYSICIAN] - Disposition Disposition: Home, Self Care
[2020-12-22 23:42] VITALS: BP 135/67; PULSE 78; RESP 14; O2SAT 96
== END 2020-12-22 23:47 | disposition home or self-care (01) ==
PROVIDERS: Emergency Provider Emergency Medicine; PCP Family Medicine
DX: S83.91XA Sprain of unspecified site of right knee, initial encounter (principal); W19.XXXA Unspecified fall, initial encounter; Y93.9 Activity, unspecified; Y92.9 Unspecified place or not applicable; E11.9 Type 2 diabetes mellitus without complications; M19.90 Unspecified osteoarthritis, unspecified site; F17.210 Nicotine dependence, cigarettes, uncomplicated
CPT/HCPCS: 73564; 99283

== ENCOUNTER 2021-03-31 22:04 | Emergency (ER) | payer OTHER, SELFPAY ==
[2021-03-31 22:04] VITALS: BP 148/81; PULSE 108; RESP 16; TEMP 36.4; O2SAT 100; BMI 23.2
--- NOTE | 2021-03-31 22:28 | EDS_ITS ---
HPI HPI - URI History of Present Illness Chief Complaint: Ear Problem Informant: patient Onset/Context/Timing Onset: Today Context: Gradual Onset Timing: Continuous Quality: Throbbing Location: Right ear Worsened by: - (Nothing) Relieved by: - (Nothing) Associated Symptoms Associated Symptoms: Positive for Nasal Congestion, Headache and Productive Cough; Negative for Sinus Pressure, Myalgias, Nausea, Vomiting, Diarrhea, Shortness of Breath, Chest Pain, Nonproductive cough and Hemoptysis Narrative Narrative: Patient presents with right ear pain that began today. Patient states it has gradually gotten worse. Patient states it has been getting worse throughout the day and worse while she was at work tonight. Patient describes her pain as throbbing. Patient states it is localized to the right ear. Patient admits to occasional cough with some yellow sputum production. Patient also admits to a headache and some rhinorrhea. Patient denies any fevers or chills. Patient denies any chest pain or shortness of breath. ROS ROS ED Constitutional Constitutional ED: Denies chills or fever(s) Eyes Eyes: Denies blurry vision or change in vision ENT ENT ED: Reports ear pain right; Denies rhinorrhea or sore throat Cardiovascular Cardiovascular: Denies chest pain or palpitations Respiratory/Chest Respiratory/Chest: Reports cough; Denies dyspnea Gastrointestinal Gastrointestinal: Denies nausea or vomiting Genitourinary Genitourinary ED: Denies dysuria or hematuria Musculoskeletal Musculoskeletal: Reports neck pain; Denies back pain Integumentary Denies abscess or rash Neurologic Neurologic: Reports headache(s); Denies weakness Allergic/Immunologic Allergic/Immunologic ED: Denies mouth swelling or urticaria [facility] Medical History (Updated 03/31/21 @ 22:[address] Cassius Gonzalez, ) Arthritis Diabetes HTN (hypertension) Neck pain Home Medications ibuprofen 600 mg PO Q6H PRN PRN #20 tab 12/22/20 [Rx Last Taken Unknown] byvzcztn-vqrpve-LK-thonzonium [Cortisporin-TC] 4 drp RIGHT EAR TID 7 Days #10 ml 03/31/21 [Rx Last Taken Unknown] Allergy/AdvReac Type Severity Reaction Status Date / Time No Known Allergies Allergy Verified 03/31/21 22:05 Family History Father Cancer Sister Diabetes Social History Smoking Status: Current every day smoker tobacco type: cigarettes alcohol intake: never EXAM Physical Exam Const Vital Signs: 03/31/21 22:04 Temperature 97.6 F L Temperature Source Temporal Pulse Rate 108 H Respiratory Rate 16 Blood Pressure 148/81 H Blood Pressure Mean 103 Pulse Ox 100 Oxygen Delivery Method Room Air Positive well nourished and well developed General Appearance ED: well developed HEENT Reports moist mucous membranes normocephalic External Auditory Canal: EAC's abnormal right edema and tenderness Tympanic Membrane ED: Yes TM's normal bilaterally Eyes PERRL and EOMs intact bilaterally Neck supple and no JVD Lymph Lymphatic Narrative: There is some mild tender anterior cervical lymphadenopathy. Neuro oriented x3, CN's II-XII intact bilaterally and no sensory deficits noted Sensorium / Orientation: alert Motor Exam: strength 5/5 throughout Psych mental status grossly normal MDM MDM MDM Narrative Medical decision making narrative: Patient was advised that this is likely a right otitis externa. Patient was given prescription for Cipro HC otic suspension. Patient was instructed to follow-up with her primary care physician in 3 to 5 days. Patient understood and was agreeable with the plan. All questions were answered. Discharge Plan Triage Chief Complaint: Ear Problem ED Provider: Cassius Gonzalez Dx/Rx/DC Orders Clinical Impression: Acute otitis externa of right ear Instructions: ED External Ear Infection (Adult) Prescriptions: New Cortisporin-TC 3.3-3-10-0.5 mg/mL drops,suspension 4 drp RIGHT EAR TID 7 Days Qty: 10 RF: 0 No Action ibuprofen 600 mg tablet 600 mg PO Q6H PRN PRN (Reason: Pain Score 1-10/10) Qty: 20 RF: 0 Stand Alone Forms: ED Work / School Excuse Primary Care Provider: Lucio Simpson Referrals: Lucio Simpson MD [Primary Care Provider] - 3-5 Days Disposition Disposition: Home, Self Care
== END 2021-04-01 00:05 | disposition home or self-care (01) ==
PROVIDERS: Emergency Provider Emergency Medicine; PCP Family Medicine
DX: H60.501 Unspecified acute noninfective otitis externa, right ear (principal); F17.210 Nicotine dependence, cigarettes, uncomplicated
CPT/HCPCS: 99282

== ENCOUNTER 2022-01-20 12:25 | Emergency (ER) | payer OTHER, SELFPAY ==
[2022-01-20 12:25] VITALS: BP 136/81; PULSE 101; RESP 18; TEMP 36.4; O2SAT 97; BMI 22.8
--- NOTE | 2022-01-20 16:48 | EDS_ITS ---
HPI History of Present Illness Chief Complaint: Other, Pain/Inj Narrative Narrative: 61-year-old female presenting with right-sided nontraumatic neck pain. Has been this way since yesterday. She tried to work last night and noticed that it was hurting more. She did take 600 mg of ibuprofen and this did help. She has not alternate Tylenol. She is not tried ice or heat. She is not tried stretching. She denies paresthesias. PFSH PFSH Medical History Arthritis Diabetes HTN (hypertension) Neck pain Home Medications ibuprofen 600 mg tablet 600 mg PO Q6H PRN PRN Pain Score 1-10 #20 tabs 12/22/20 [Rx Last Taken Unknown] wpjlzgel-gbsxlp-[place]-thonzonm 3.3 mg-3 mg-10 mg-0.5 mg/mL ear drops,susp (C ortisporin-TC) 4 drp RIGHT EAR TID 7 days #10 mL 03/31/21 [Rx Last Taken Unknown] cyclobenzaprine 10 mg tablet 10 mg PO BID PRN muscle spasm #15 tabs 01/20/22 [Rx Last Taken Unknown] ibuprofen 600 mg tablet 600 mg PO Q6H PRN PRN pain #20 tabs 01/20/22 [Rx Last Taken Unknown] Allergy/AdvReac Type Severity Reaction Status Date / Time No Known Allergies Allergy Verified 01/20/22 12:28 Family History Father Cancer Sister Diabetes Social History Smoking Status: Current every day smoker tobacco type: cigarettes alcohol intake: never ROS ROS ED Constitutional Constitutional ED: Denies chills, fever(s) or sweats Eyes Eyes: Denies blurry vision or change in vision ENT ENT ED: Denies ear pain or sore throat Cardiovascular Cardiovascular: Denies chest pain, palpitations or racing heartbeat Respiratory/Chest Respiratory/Chest: Denies cough, dyspnea or sputum Gastrointestinal Gastrointestinal: Denies abdominal pain, constipation, diarrhea, nausea or vomiting Genitourinary Genitourinary ED: Denies dysuria, hematuria or urinary frequency Musculoskeletal Musculoskeletal: Reports neck pain; Denies arthralgias or myalgias Integumentary Denies abscess, Abrasions or rash Neurologic Neurologic: Denies headache(s), paresthesias or weakness Psychiatric Psychiatric: Denies anxiety, depression, suicidal ideation or suicidal thoughts Endocrine Endocrinology: Denies polydipsia or polyuria EXAM Physical Exam Const Vital Signs: 01/20/22 12:25 01/20/22 12:51 Temperature 97.6 F L Temperature Source Temporal Pulse Rate 101 H Respiratory Rate 18 Respiratory Effort Normal Respiratory Pattern Normal Blood Pressure 136/81 H Blood Pressure Mean 99 Pulse Ox 97 Oxygen Delivery Method Room Air Positive well nourished General Appearance ED: NAD HEENT atraumatic Eyes PERRL and EOMs intact bilaterally Neck full ROM Resp normal respiratory effort Cardio regular rhythm Rate: regular rate Back/Spine Back/Spine Narrative: Right cervical paraspinal muscular tenderness extending into the right trapezius. No midline spinal deformity or step-off Neuro oriented x3, CN's II-XII intact bilaterally, moves all extremities, no focal motor deficits and no sensory deficits noted Sensorium / Orientation: alert Motor Exam: strength 5/5 throughout Psych mental status grossly normal Skin no rashes or lesions noted MDM MDM MDM Narrative Medical decision making narrative: Patient presenting with cervical sprain. She does not have any midline spinal tenderness. I do not believe she needs imaging. She requests something to help with the pain and she is given a cyclobenzaprine and ibuprofen for home. She request a work note which will be provided. Impression: 1. Cervical strain Lab Data Attestation: I reviewed the patient's lab results. Discharge Plan Triage Chief Complaint: Other, Pain/Inj ED Provider: Darion Shelton Dx/Rx/DC Orders Instructions: ED Neck Sprain or Strain Prescriptions: New cyclobenzaprine 10 mg tablet 10 mg PO BID PRN (Reason: muscle spasm) Qty: 15 0RF ibuprofen 600 mg tablet 600 mg PO Q6H PRN PRN (Reason: pain) Qty: 20 0RF No Action ibuprofen 600 mg tablet 600 mg PO Q6H PRN PRN (Reason: Pain Score 1-10/10) Qty: 20 0RF Cortisporin-TC 3.3-3-10-0.5 mg/mL drops,suspension 4 drp RIGHT EAR TID 7 Days Qty: 10 0RF Stand Alone Forms: ED Work / School Excuse Primary Care Provider: Lucio Simpson Referrals: Lucio Simpson MD [Primary Care Provider] - Disposition Disposition: Home, Self Care Discharge Date/Time: 01/20/22 13:47
== END 2022-01-20 13:47 | disposition home or self-care (01) ==
PROVIDERS: Emergency Provider Student in an Organized Health Care Education/Training Program; PCP Family Medicine; Visit Provider Student in an Organized Health Care Education/Training Program
DX: S16.1XXA Strain of muscle, fascia and tendon at neck level, initial encounter (principal); E11.9 Type 2 diabetes mellitus without complications; M19.90 Unspecified osteoarthritis, unspecified site; F17.210 Nicotine dependence, cigarettes, uncomplicated; X58.XXXA Exposure to other specified factors, initial encounter
CPT/HCPCS: 99282

== ENCOUNTER 2022-06-02 18:03 | Emergency (ER) | payer OTHER, SELFPAY ==
[2022-06-02 18:05] VITALS: BP 89/79; PULSE 98; RESP 18; TEMP 35.9; O2SAT 98; BMI 24.6
[2022-06-02 18:41] VITALS: BP 125/70
--- NOTE | 2022-06-02 19:17 | EDS_ITS ---
HPI HPI - GI History of Present Illness Chief Complaint: Abd Pain Narrative Narrative: 61-year-old female past medical history of diabetes presents with abdominal pain that she had since yesterday. She states it started in the morning when she went to work. She worked a 12-hour shift. She complains of sharp, stabbing pain on her left side, and it alternates over to the right side. She denies any previous abdominal surgeries. Today, earlier, she was nauseated and vomited without any blood in her emesis. She denies any fevers or chills. No diarrhea or problems with bowel movements. No dysuria or hematuria. She denies any exacerbating or alleviating factors to her abdominal pain. She states she tried to lay down, but was unable to sleep. Additionally, she relates history that she saw her primary care provider last week on , and everything was fine, although she had blood test performed, then was told that there is something wrong with my liver. She denies any recent alcohol use, stating that I quit. [facility] Medical History (Updated 06/02/22 @ 21:53 by Tal Grewal MD) Arthritis Diabetes HTN (hypertension) Neck pain Home Medications ibuprofen 600 mg tablet 600 mg PO Q6H PRN PRN Pain Score 1-02/22 #20 tabs 12/22/20 [Rx Last Taken Unknown] vepmbplo-bolodw-GQ-thonzonm 3.3 mg-3 mg-10 mg-0.5 mg/mL ear drops,susp (Cortisporin-TC) 4 drp RIGHT EAR TID 7 days #10 mL 03/31/21 [Rx Last Taken Unknown] cyclobenzaprine 10 mg tablet 10 mg PO BID PRN muscle spasm #15 tabs 01/20/22 [Rx Last Taken Unknown] ibuprofen 600 mg tablet 600 mg PO Q6H PRN PRN pain #20 tabs 01/20/22 [Rx Last Taken Unknown] Allergy/AdvReac Type Severity Reaction Status Date / Time No Known Allergies Allergy Verified 06/02/22 18:04 Family History Father Cancer Sister Diabetes Social History Smoking Status: Current every day smoker tobacco type: cigarettes alcohol intake: never ROS ROS ED ROS Narrative Constitutional: No fever, no chills. HEENT: No sore throat. No neck pain. No loss of vision. No rhinorrhea. Cardiovascular: No chest pain. No palpitations. No pedal edema. Respiratory: No cough, no shortness of breath. Abdominal: Left-sided and right-sided abdominal pain. Positive nausea. Positive vomiting. Genitourinary: No dysuria. No hematuria. Musculoskeletal: No myalgias. No arthralgias. Neurologic: No headaches. No dizziness. No lightheadedness. Skin: No rash. No change in color. Psychiatric: No depression. No anxiety. EXAM Physical Exam Narrative Exam Narrative: Afebrile. Vital signs noted. HEENT: Normocephalic. Atraumatic. PERRL, EOMI. Neck soft and supple. No point tenderness or step off. Cardiovascular: Regular rate and rhythm. No murmurs, rubs, or gallops appreciated. Respiratory: No tachypnea. Lungs clear to auscultation bilaterally. Gastrointestinal: Abdomen soft, nontender, with normoactive bowel sounds. No rebound or guarding. Neurological: Awake. Alert. Nonfocal, nonlateralizing. Skin: No rash. Normal color. No pallor. Musculoskeletal: No pedal edema. Full range of motion extremities. Const Vital Signs: 06/02/22 18:05 06/02/22 18:41 Temperature 96.6 F L Temperature Source Temporal Pulse Rate 98 Respiratory Rate 18 Blood Pressure 89/79 L 125/70 H Blood Pressure Mean 82 88 Pulse Ox 98 Oxygen Delivery Method Room Air MDM [facility] Narrative Medical decision making narrative: Initially, it was reported that she was hypotensive at 89/79, but vitals taken later show she is normotensive at 125/70. Comprehensive work-up was pursued. I will obtain CBC, CMP, and lipase. I do feel CT imaging is indicated given her diffuse abdominal pain, and it alternating from left to right. I reviewed her laboratory work. In review of her CBC she has normal white count of 6.6, hemoglobin normal at 13.3, platelet count normal at 244. CMP was reviewed and shows chloride of 112, normal sodium of 142. Glucose elevated at 171 but normal anion gap of 5. LFTs actually show low AST of 14 and a normal ALT of 23. Alk phos slightly elevated at 126 which I think is nonspecific. Lipase normal at 119. While her urinalysis is positive for nitrites it is negative for leukocyte esterase. There are 0-5 WBCs and only 1+ bacteria. As she is not having dysuria or hematuria/frequency I do not feel antibiotics are indicated, but will be sent for culture. Antibiotics can be written at that time if needed if the culture grows out bacteria. CT of the abdomen and pelvis was obtained, and I reviewed the radiology report. There is evidence of gastritis and she does have gallstones but there is no obstruction or common bile duct dilation. She will take onpt-foz-womljng medications such as Pepcid for her gastritis. She mentioned that at times she has small bowel movements. She was told to increase fiber in her diet or start Metamucil. There has been no vomiting in the ED. At this point in time, I feel she can be discharged safely home with follow-up to her primary care provider. She requested a note to be off work today. Return instructions to the emergency department were reviewed. Disposition is discharged home in stable condition. Lab Data Attestation: I reviewed the patient's lab results. Labs: Laboratory Results - last 24 hr 06/02/22 06/02/22 06/02/22 18:40 18:40 19:30 WBC 6.6 RBC 4.59 Hgb 13.3 Hct 40.6 MCV 88.5 MCH 29.0 MCHC 32.8 RDW Std Deviation 42.2 RDW Coeff of Ginger 13.0 Plt Count 244 MPV 9.7 Immature Gran % (Auto) 0.200 Neut % (Auto) 51.0 Lymph % (Auto) 38.2 Maverick % (Auto) 5.6 Eos % (Auto) 4.7 Baso % (Auto) 0.3 Absolute Neuts (auto) 3.4 Absolute Lymphs (auto) 2.51 Nucleated RBC % 0 Sodium 142 Potassium 3.6 Chloride 112 H Carbon Dioxide 25.0 Anion Gap 5 BUN 12 Creatinine 0.73 Estim Creat Clear Calc 68.64 Est GFR (MDRD) Af Amer 104 Est GFR (MDRD) Non-Af 86 BUN/Creatinine Ratio 16.3 Glucose 171 H Calcium 9.2 Total Bilirubin 0.30 AST 14 L ALT 23 Alkaline Phosphatase 126 H Total Protein 7.2 Albumin 3.3 Globulin 3.9 Albumin/Globulin Ratio 0.8 L Lipase 119 Urine Color Yellow Urine Clarity Clear Urine pH 6.0 Ur Specific [place] 1.020 Urine Protein Negative Urine Glucose (UA) 1000 H Urine Ketones Negative Urine Occult Blood 25 H Urine Nitrite Positive H Urine Bilirubin Negative Urine Urobilinogen Normal Ur Leukocyte Esterase Negative Urine RBC 0 SEEN Urine WBC 0-5 SEEN Ur Squamous Epith Cells 0 SEEN Urine Bacteria 1+ Urine Mucus 0 SEEN Radiography Diagnostic Testing: Clinical Impression(s) from Imaging Studies Abdomen/Pelvis CT 06/02/22 19:17 IMPRESSION: (NOT LISTED IN ORDER OF SIGNIFICANCE) Gastritis. There are multiple gallstones. Other findings as above. Electronically Signed: Jamie Chacon MD at 20:42 EST , Discharge Plan Triage Chief Complaint: Abd Pain Other Complaint: Cough ED Provider: Tal Grewal Dx/Rx/DC Orders Clinical Impression: Abdominal pain, Nausea and vomiting, Gastritis, Gallstones Instructions: Gallstones Dc, ED Abdominal Pain Unkn Cause Fem, ED Gastritis (Adult), ED Vomiting (Adult) Prescriptions: No Action ibuprofen 600 mg tablet 600 mg PO Q6H PRN PRN (Reason: Pain Score 1-10/10) Qty: 20 0RF Cortisporin-TC 3.3-3-10-0.5 mg/mL drops,suspension 4 drp RIGHT EAR TID 7 Days Qty: 10 0RF cyclobenzaprine 10 mg tablet 10 mg PO BID PRN (Reason: muscle spasm) Qty: 15 0RF ibuprofen 600 mg tablet 600 mg PO Q6H PRN PRN (Reason: pain) Qty: 20 0RF Stand Alone Forms: ED Work / School Excuse Primary Care Provider: Lucio Simpson Referrals: Lucio Simpson MD [Primary Care Provider] - 3-5 Days Disposition Disposition: Home, Self Care
--- NOTE | 2022-06-02 19:17 | CT_ITS ---
STUDY: CT Abdomen And Pelvis W/ Contrast Injection 06/02/2022 8:20 PM REASON FOR EXAM: Female, 61 years old. ABDOMINAL PAIN Pain TECHNIQUE: Transaxial images were obtained without oral contrast, and with IV 100mL Isovue-370 intravenous contrast. Individualized dose optimization techniques were used for this CT. COMPARISON: 01.03.14. FINDINGS: The visualized lung bases are unremarkable. The visualized portions of the heart are within normal limits. Unremarkable liver. There are multiple gallstones. Unremarkable spleen. Unremarkable pancreas. Unremarkable bilateral adrenal glands. No acute findings of the right kidney. There are hypodensities in the left kidney. These are consistent for cysts. No follow up required. Focal wall thickening of the antrum of stomach. This can suggest a gastritis. Unremarkable small intestine. Unremarkable colon. The appendix is visualized and appears unremarkable. There are calcifications of the abdominal aorta. This is consistent for atherosclerotic disease. There is no abdominal aortic aneurysm. Unremarkable inferior vena cava. Subcentimeter mesenteric lymph nodes. Unremarkable urinary bladder. There is an umbilical hernia containing fat. There are diffuse degenerative changes of the visualized lumbar spine. CT/Abdomen/Pelvis W IV Cont ONLY IMPRESSION: (NOT LISTED IN ORDER OF SIGNIFICANCE) Gastritis. There are multiple gallstones. Other findings as above. Electronically Signed: Jamie Chacon MD at 20:42 EST ,
[2022-06-02] MEDS: 0.9% Normal Saline 1,000 ML 1000 ML IV (19:32)
[2022-06-02 19:37] LABS: Mucous, Urine 0 SEEN /hpf (<or=2+); Red Blood Cells-Urine 0 SEEN /hpf (0-5); Squamous Epithelial Cells - UA 0 SEEN /hpf (5-10)
[2022-06-02 19:40] LABS: Absolute Lymphocyte Count 2.51 X10^3/uL (0.83-4.51); Absolute Neutrophil Count 3.4 X10^3/uL (2.0-7.7); Basophil# 0.02 X10^3/uL; Basophil% 0.3 % (0-1); Eosinophil# 0.31 X10^3/uL; Eosinophils% 4.7 % (0-5); Hematocrit 40.6 % (37-47); Hemoglobin 13.3 g/dL (12.0-15.0); Lymphocyte # 2.51 X10^3/ul (0.83-4.51); Lymphocyte % 38.2 % (19-41); Mean Corp Hgb Conc 32.8 g/dL (32-36); Mean Corpuscular Volume 88.5 fL (81-99); Mean Platelet Vol. 9.7 fl (6.2-12.0); Monocyte# 0.37 X10^3/uL; Monocyte% 5.6 % (0-10); NRBC Flagged by Analyzer 0 % (0-5); Neutrophil # 3.35 X10^3/uL (2.7-7.7); Platelet Count 244 K/mm3 (150-450); RBC Distribution Width SD 42.2 fl (35.1-43.9); Red Blood Count 4.59 M/mm3 (4.2-5.4); White Blood Count 6.6 K/mm3 (4.4-11.0)
[2022-06-02 19:57] LABS: ALB/GLOB Ratio 0.8 RATIO (0.9-2.4); AST(SGOT) 14 U/L (15-37); Alanine Aminotransfer ALT/SGPT 23 U/L (13-56); Albumin, Serum 3.3 g/dL (3.2-5.0); Alkaline Phosphatase 126 U/L (45-117); Anion Gap 5 (5-15); BUN 12 mg/dL (7-18); BUN/Creat Ratio 16.3 RATIO (10-20); Calcium,Total 9.2 mg/dL (8.5-10.1); Chloride 112 mmol/L (98-107); Creatinine, Serum 0.73 mg/dL (0.55-1.02); EST Glomerular Filtration Rate 86 mL/min (>60); Est Glom Filt Rate - Afr Amer 104 mL/min (>60); Estimated Creatinine Clearance 68.64 ml/min; Globulin 3.9 g/dL (2.2-4.2); Glucose 171 mg/dL (74-106); Lipase 119 U/L (73-393); Potassium 3.6 mmol/L (3.5-5.1); Protein, Total 7.2 g/dL (6.4-8.2); Sodium Level 142 mmol/L (136-145)
[2022-06-02 20:10] LABS: Color, Urine Yellow (Yellow); Glucose, Dipstick 1000 mg/dl (Normal); Ketone-Dipstick Negative (Negative); Leukocyte Esterase-Dipstick Negative /ul (Negative); Nitrite-Dipstick Positive (Negative); Occult Blood-Urine 25 /ul (Negative); Protein-Dipstick Negative (Negative); Urine Bilirubin Dipstick Negative (Negative); Urine Clarity Clear (Clear); Urine Urobilinogen Normal (Normal)
[2022-06-02 20:30] LABS: Bacteria 1+ /hpf (None Seen); White Blood Cells 0-5 SEEN /hpf (0-5)
== END 2022-06-02 22:01 | disposition home or self-care (01) ==
PROVIDERS: Emergency Provider Emergency Medicine; PCP Family Medicine; Visit Provider Emergency Medicine
DX: K29.70 Gastritis, unspecified, without bleeding (principal); K80.20 Calculus of gallbladder without cholecystitis without obstruction; F17.210 Nicotine dependence, cigarettes, uncomplicated
CPT/HCPCS: 74177; 80053; 81001; 83690; 85025; 87077; 87086; 87088; 87186; 96360; 96361; 99284; J7030; Q9967; A4216

== ENCOUNTER 2022-12-30 21:55 | Emergency (ER) | payer OTHER, SELFPAY ==
[2022-12-30 21:55] VITALS: BP 106/66; PULSE 83; RESP 18; TEMP 36.2; O2SAT 98; BMI 23.0
[2022-12-30] MEDS: Orphenadrine 60 MG/2 ML Ampul IM (23:05)
--- NOTE | 2022-12-30 23:10 | RAD_ITS ---
EXAM: XR LUMBOSACRAL SPINE, 2 OR 3 VIEWS CLINICAL INDICATION: pain TECHNIQUE: Frontal and lateral views of the lumbar spine and sacrum. COMPARISON: Abdominal pelvic CT of 06/02/2022. FINDINGS: VERTEBRAE: Mild/moderate lumbar levoscoliosis is present. Extensive lumbar facet arthritis is noted. Degenerative spurring noted about the lower thoracic and upper lumbar disc spaces . No compression fracture or spondylolisthesis. DISC SPACES: Lumbar disc spaces are relatively preserved. VASCULATURE: 2 adjacent rounded calcifications measuring 5 mm in diameter each are projected within the right mid abdomen, shown to be due to gallstones on prior CT. No renal calculi are identified. There is a stable chronic calcified phlebolith within the right pelvis. Atherosclerotic vascular calcification is present. GASTROINTESTINAL TRACT: Unremarkable as visualized. Included bowel gas pattern is non-obstructive. OTHER: The visualized SI joints and hip joints are unremarkable. RAD/Lumbar Spine 2 or 3 Views IMPRESSION: Lumbar levoscoliosis with extensive lumbar facet arthritis. No acute fracture. Normal bowel gas pattern. Cholelithiasis. Electronically Signed: Lul Chino MD at 23:40 EDT ,
[2022-12-31 00:59] VITALS: PULSE 70; RESP 14; O2SAT 98
--- NOTE | 2022-12-31 00:59 | EX.ED.DYSGE1 ---
HPI History of Present Illness Chief Complaint: Other, Pain/Inj Informant: patient Narrative Narrative: Patient is a 62-year-old female with past medical history of insulin-dependent diabetes. She states this morning she accidentally fell out of bed which is roughly 2 feet high and landed on her left side. She denies striking her head or any loss of consciousness. She states she was able to get up following the fall and then while she was at work which requires standing and walking she noticed increased pain along the left hip. Secondary to this she is concerned for injury and comes in for evaluation. [facility] Medical History (Updated 12/31/22 @ 04:[address] Vishnu Stephens, DO) Arthritis Diabetes HTN (hypertension) Neck pain Home Medications ibuprofen 600 mg tablet 600 mg PO Q6H PRN PRN pain #20 tabs 01/20/22 [Rx Last Taken Unknown] insulin glargine 100 unit/mL (3 mL) subcutaneous pen (Lantus Solostar U-100 Insulin) 26 unit subcut QHS 12/30/22 [History Last Taken Unknown] metformin 500 mg tablet,extended release 24 hr 500 mg PO DAILY 12/30/22 [History Last Taken Unknown] methocarbamol 500 mg tablet See Rx Instructions .Route .COMPLEX #56 tabs 12/31/22 [Rx Last Taken Unknown] Allergy/AdvReac Type Severity Reaction Status Date / Time No Known Allergies Allergy Verified 12/30/22 21:55 Family History Father Cancer Sister Diabetes Social History Smoking Status: Light Smoker (<10/day) alcohol intake: never ROS ROS ED Constitutional Constitutional ED: Denies chills or fever(s) Eyes Eyes: Denies change in vision ENT ENT ED: Denies sore throat Cardiovascular Cardiovascular: Denies chest pain Respiratory/Chest Respiratory/Chest: Denies cough or dyspnea Gastrointestinal Gastrointestinal: Denies abdominal pain, diarrhea, nausea or vomiting Genitourinary Genitourinary ED: Denies dysuria Musculoskeletal Musculoskeletal: Reports back pain and other Details: Positive left hip pain Integumentary Denies Abrasions or rash Neurologic Neurologic: Denies headache(s), paresthesias or weakness Hematologic/Lymphatic Hematologic/Lymphatic: Denies easy bleeding or easy bruising EXAM Physical Exam Const Vital Signs: 12/30/22 21:55 12/30/22 22:26 12/31/22 00:59 Temperature 97.1 F L Temperature Source Temporal Pulse Rate 83 70 Respiratory Rate 18 14 Respiratory Effort Normal Respiratory Pattern Normal Blood Pressure 106/66 Blood Pressure Mean 79 Pulse Ox 98 98 Oxygen Delivery Method Room Air Positive well nourished and well developed General Appearance ED: well developed HEENT HEENT Narrative: Normocephalic atraumatic Eyes PERRL and EOMs intact bilaterally Eyes Narrative: No hyphema noted Neck supple Neck Narrative: No bony deformity or step-off of the cervical spine no midline pain with palpation Chest Wall palpation of chest normal Resp normal respiratory effort and clear to auscultation bilaterally Cardio regular rate and regular rhythm GI normal to inspection, nondistended, normoactive bowel sounds, non-tender and non-distended Auscultation: normoactive bowel sounds Palpation: soft Back/Spine Back/Spine Narrative: No bony deformity or step-off of the thoracic or lumbar spine. There is dextroscoliosis noted of the lower lumbar spine. There is mild midline pain on palpation. However patient's main pain is along the left piriformis muscle belly. Pain worsens with hip flexion and there is a positive Bishnu sign. Otherwise no saddle anesthesia. Negative straight leg raise. No clonus or Babinski. Patellar reflexes are plus 2 out of 4 bilaterally. Extremity normal to inspection Extremity Narrative: Pelvis is stable there is no shortening or external rotation of either lower extremity Neuro oriented x3, CN's II-XII intact bilaterally and no sensory deficits noted Sensorium / Orientation: alert Motor Exam: strength 5/5 throughout Psych mental status grossly normal Skin no rashes or lesions noted MDM MDM MDM Narrative Medical decision making narrative: Patient presented to the ER with stable vitals and reported an accidental fall from bed. Her pain is worse with hip flexion indicating this is piriformis muscle belly. However differential diagnosis does include lumbar compression fracture versus spondylolisthesis versus hip contusion versus hip fracture. As patient is able to ambulate concern for hip fracture is extremely low and I do not feel there is a need for hip x-ray. X-ray of the low back was obtained and shows scoliosis without acute fracture. Secondary to this patient has piriformis syndrome with muscular tension and spasm of the piriformis muscle and is even given symptomatic medications and discharged home History & Record Review Discussion w/independent historian: Patient Radiography Diagnostic Testing: Clinical Impression(s) from Imaging Studies Lumbar Spine X-Ray 12/30/22 23:10 IMPRESSION: Lumbar levoscoliosis with extensive lumbar facet arthritis. No acute fracture. Normal bowel gas pattern. Cholelithiasis. Electronically Signed: Lul Chino MD at 23:40 EDT , Lumbosacral x-ray as interpreted by the emergency medicine physician reveals lumbar scoliosis without acute compression fracture or spondylolisthesis Discharge Plan Triage Chief Complaint: Other, Pain/Inj ED Provider: Vishnu Stephens Dx/Rx/DC Orders Clinical Impression: Lumbar spine scoliosis, Piriformis syndrome of left side, Accidental fall, Insulin dependent diabetes mellitus Instructions: Understanding Scoliosis, Back Exercises: Hip Rotator Stretch Prescriptions: New methocarbamol 500 mg tablet See Rx Instructions .ROUTE .COMPLEX Qty: 56 1RF Rx Instructions: 1 to 2 pills by mouth 4 times daily as needed muscle pain/spasm No Action ibuprofen 600 mg tablet 600 mg PO Q6H PRN PRN (Reason: pain) Qty: 20 0RF metformin 500 mg tablet extended release 24 hr 500 mg PO DAILY Patient Comments: TAKE 4 TABLETS BY MOUTH DAILY WITH FOOD. insulin glargine [Lantus Solostar U-100 Insulin] 100 unit/mL (3 mL) insulin pen 26 unit SUBCUT QHS Patient Comments: INJECT 22 UNITS SUBCUTANEOUSLY DAILY AT BEDTIME. Stand Alone Forms: ED Work / School Excuse Primary Care Provider: Lucio Simpson Referrals: Lucio Simpson MD [Primary Care Provider] - Disposition Disposition: Home, Self Care Discharge Date/Time: 12/31/22 01:16
== END 2022-12-31 01:16 | disposition home or self-care (01) ==
PROVIDERS: Emergency Provider Emergency Medicine; PCP Family Medicine; Visit Provider Emergency Medicine
DX: M41.86 Other forms of scoliosis, lumbar region (principal); E11.9 Type 2 diabetes mellitus without complications; Z79.4 Long term (current) use of insulin; I10 Essential (primary) hypertension; F17.200 Nicotine dependence, unspecified, uncomplicated; Z79.84 Long term (current) use of oral hypoglycemic drugs; G57.02 Lesion of sciatic nerve, left lower limb; W06.XXXA Fall from bed, initial encounter
CPT/HCPCS: 72100; 96372; 99282

== ENCOUNTER → 2023-03-29 | Outpatient (CLI) | payer OTHER, SELFPAY ==
[2023-03-29 15:46] LABS: Lipase 27 U/L (13-75)
== END | disposition home or self-care (01) ==
LOC: LABSPEC 15:29
PROVIDERS: PCP Family Medicine; Referring Provider Nurse Practitioner Family; Visit Provider Nurse Practitioner Family
DX: R10.84 Generalized abdominal pain (principal)
CPT/HCPCS: 83690

== ENCOUNTER 2023-12-12 20:09 | Emergency (ER) | payer OTHER, SELFPAY ==
[2023-12-12] VITALS (15 sets, daily range): BP systolic 116–151; BP diastolic 61–111; PULSE 74–99; RESP 11–29; TEMP 35.8–36.8; O2SAT 95–99; BMI 23.8
[2023-12-12] MEDS: 0.9% Normal Saline (500mL Bag) 500 ML 1000 ML IV (20:40)
[2023-12-12 20:42] LABS: Absolute Lymphocyte Count 2.36 X10^3/uL (0.83-4.51); Absolute Neutrophil Count 3.6 X10^3/uL (2.0-7.7); Basophil# 0.03 X10^3/uL; Basophil% 0.5 % (0-1); Eosinophil# 0.23 X10^3/uL; Eosinophils% 3.5 % (0-5); Hematocrit 42.3 % (37-47); Hemoglobin 14.2 g/dL (12.0-15.0); Lymphocyte # 2.36 X10^3/ul (0.83-4.51); Lymphocyte % 35.7 % (19-41); Mean Corp Hgb Conc 33.6 g/dL (32-36); Mean Corpuscular Hgb 28.5 pg (27.0-32.0); Mean Corpuscular Volume 84.9 fL (81-99); Mean Platelet Vol. 9.6 fl (6.2-12.0); Monocyte# 0.38 X10^3/uL; Monocyte% 5.7 % (0-10); NRBC Flagged by Analyzer 0 % (0-5); Neutrophil # 3.59 X10^3/uL (2.7-7.7); Neutrophil % 54.3 % (47-70); Platelet Count 242 K/mm3 (150-450); RBC Distribution Width CV 14.5 % (11.6-14.6); RBC Distribution Width SD 44.8 fl (35.1-43.9); Red Blood Count 4.98 M/mm3 (4.2-5.4); White Blood Count 6.6 K/mm3 (4.4-11.0)
[2023-12-12 20:57] LABS: Anion Gap 4 (5-15); BUN 8 mg/dL (7-18); BUN/Creat Ratio 10.3 RATIO (10-20); Calcium,Total 9.3 mg/dL (8.5-10.1); Chloride 107 mmol/L (98-107); Creatinine, Serum 0.78 mg/dL (0.55-1.02); EST Glomerular Filtration Rate 80 mL/min (>60); Est Glom Filt Rate - Afr Amer 97 mL/min (>60); Estimated Creatinine Clearance 62.65 ml/min; Glucose 270 mg/dL (74-106); Potassium 3.6 mmol/L (3.5-5.1); Sodium Level 136 mmol/L (136-145)
--- NOTE | 2023-12-12 21:27 | EDS_ITS ---
HPI History of Present Illness Chief Complaint: Dizziness Detail of Chief Complaint: Patient presents with dizziness, which she defines as lightheadedness with Informant: patient Onset/Context/Timing Onset: Hours (1 hour prior to arrival) Context: Sudden Onset Timing: Intermittent Quality: Lightheadedness with rising from supine or sitting position Location: Orthostatic lightheadedness Current Severity: 0/10 Maximum Severity: Moderate Worsened by: Having patient rise from supine position Relieved by: Having patient's supine Associated Symptoms Associated Symptoms: No other symptoms Narrative Narrative: Patient is a 63-year-old woman. She is a poor informant. She has history of diabetes. She denies diabetic neuropathy. She does endorse right-sided headache which she reports to be her typical headache. This is not associated with double vision, blurred vision or loss of vision. She denies neck pain or neck stiffness. She denies trouble with speech or swallowing. She denies cardiac or respiratory symptoms. She denies nausea or vomiting. She denies abdominal pain or low back pain. She denies paresthesia, anesthesia or motor w eakness upper or lower extremity. She denies problems with balance or coordination. She denies a spinning sensation. Patient states this occurred when she was walking to the restroom. She denied d iaphoresis. She was not pale. She did not complain of spinning or any other symptoms. Prior similar symptoms: No Recent Illness/Hospitalization: No [facility] Medical History (Updated 12/12/23 @ 22:[address] Lawson Reid MD) Diabetes HTN (hypertension) Neck pain Arthritis Home Medications ?Medication ?Instructions ?Recorded ?Last Taken ?Type ibuprofen 600 mg tablet 600 mg PO Q6H PRN PRN pain #20 tabs 01/20/22 Unknown Rx insulin glargine 100 unit/mL (3 26 unit subcut QHS 12/30/22 Unknown History mL) subcutaneous pen (Lantus Solostar U-100 Insulin) metformin 500 mg tablet,extended 500 mg PO DAILY 12/30/22 Unknown History release 24 hr methocarbamol 500 mg tablet See Rx Instructions .Route 12/31/22 Unknown Rx .COMPLEX #56 tabs Allergy/AdvReac Type Severity Reaction Status Date / Time No Known Allergies Allergy Verified 12/12/23 20:11 Family History Father Cancer Sister Diabetes Social History Smoking Status: Light Smoker (<10/day) alcohol intake: never ROS ROS ED Constitutional Constitutional ED: Denies chills, fever(s), subjective, sweats or weight loss Eyes Eyes: Denies change in vision or diplopia ENT ENT ED: Denies ear pain, rhinorrhea or sore throat Cardiovascular Cardiovascular: Denies chest pain, orthopnea, palpitations, paroxysmal nocturnal dyspnea or racing heartbeat Respiratory/Chest Respiratory/Chest: Denies cough, dyspnea, dyspnea on exertion, orthopnea or paroxysmal nocturnal dyspnea Gastrointestinal Gastrointestinal: Denies abdominal pain, diarrhea, melena, nausea or vomiting Genitourinary Genitourinary ED: Denies dysuria, hematuria or urinary frequency Musculoskeletal Musculoskeletal: Denies back pain or neck pain Integumentary Denies rash Neurologic Neurologic: Reports headache(s); Denies paresthesias or weakness Endocrine Endocrinology: Denies cold intolerance or heat intolerance Hematologic/Lymphatic Hematologic/Lymphatic: Reports systems reviewed and no addt'l complaints, except as documented EXAM Physical Exam Const Vital Signs: 12/12/23 20:11 12/12/23 20:24 12/12/23 20:30 Temperature 96.4 F L Temperature Source Temporal Pulse Rate 99 97 92 Pulse Rate [Lying] Pulse Rate [Sitting (for 1 minute prior to obtaining)] Pulse Rate [Standing (for 1 minute prior to obtaining)] Respiratory Rate 18 23 H 19 H Blood Pressure 130/81 H 123/74 H Blood Pressure [Lying] Blood Pressure [Sitting (for 1 minute prior to obtaining)] Blood Pressure [Standing (for 1 minute prior to obtaining)] Blood Pressure Mean 97 88 Blood Pressure Mean [Lying] Blood Pressure Mean [Sitting (for 1 minute prior to obtaining)] Blood Pressure Mean [Standing (for 1 minute prior to obtaining)] Pulse Ox 97 96 96 Oxygen Delivery Method Room Air 12/12/23 20:45 12/12/23 21:00 12/12/23 21:15 Temperature Temperature Source Pulse Rate 89 85 Pulse Rate [Lying] Pulse Rate [Sitting (for 1 minute prior to obtaining)] Pulse Rate [Standing (for 1 minute prior to obtaining)] Respiratory Rate 11 L 18 Blood Pressure 117/70 143/80 H 131/86 H Blood Pressure [Lying] Blood Pressure [Sitting (for 1 minute prior to obtaining)] Blood Pressure [Standing (for 1 minute prior to obtaining)] Blood Pressure Mean 84 95 101 Blood Pressure Mean [Lying] Blood Pressure Mean [Sitting (for 1 minute prior to obtaining)] Blood Pressure Mean [Standing (for 1 minute prior to obtaining)] Pulse Ox 95 99 Oxygen Delivery Method Room Air 12/12/23 21:30 12/12/23 21:45 12/12/23 22:00 Temperature Temperature Source Pulse Rate 78 78 81 Pulse Rate [Lying] Pulse Rate [Sitting (for 1 minute prior to obtaining)] Pulse Rate [Standing (for 1 minute prior to obtaining)] Respiratory Rate 16 20 H 29 H Blood Pressure 116/61 120/80 135/111 H Blood Pressure [Lying] Blood Pressure [Sitting (for 1 minute prior to obtaining)] Blood Pressure [Standing (for 1 minute prior to obtaining)] Blood Pressure Mean 79 90 120 Blood Pressure Mean [Lying] Blood Pressure Mean [Sitting (for 1 minute prior to obtaining)] Blood Pressure Mean [Standing (for 1 minute prior to obtaining)] Pulse Ox 98 96 Oxygen Delivery Method 12/12/23 22:06 12/12/23 22:06 12/12/23 22:08 Temperature Temperature Source Pulse Rate 82 83 Pulse Rate [Lying] 85 Pulse Rate [Sitting (for 1 minute prior to obtaining)] 89 Pulse Rate [Standing (for 1 minute prior to obtaining)] 90 Respiratory Rate 22 H 18 Blood Pressure 137/70 H 137/77 H Blood Pressure [Lying] 137/70 H Blood Pressure [Sitting (for 1 minute prior to obtaining)] 137/77 H Blood Pressure [Standing (for 1 minute prior to obtaining)] 142/80 H Blood Pressure Mean 86 92 Blood Pressure Mean [Lying] 92 Blood Pressure Mean [Sitting (for 1 minute prior to obtaining)] 97 Blood Pressure Mean [Standing (for 1 minute prior to obtaining)] 100 Pulse Ox 97 Oxygen Delivery Method Room Air 12/12/23 22:10 12/12/23 22:12 12/12/23 22:15 Temperature Temperature Source Pulse Rate 88 82 82 Pulse Rate [Lying] Pulse Rate [Sitting (for 1 minute prior to obtaining)] Pulse Rate [Standing (for 1 minute prior to obtaining)] Respiratory Rate 19 H 26 H 17 Blood Pressure 142/80 H 151/73 H Blood Pressure [Lying] Blood Pressure [Sitting (for 1 minute prior to obtaining)] Blood Pressure [Standing (for 1 minute prior to obtaining)] Blood Pressure Mean 96 93 Blood Pressure Mean [Lying] Blood Pressure Mean [Sitting (for 1 minute prior to obtaining)] Blood Pressure Mean [Standing (for 1 minute prior to obtaining)] Pulse Ox 97 97 Oxygen Delivery Method Room Air Positive well nourished and well developed Constitutional Narrative: Patient looks older than reported age. General Appearance ED: well developed and NAD; Negative for cyanotic, diaphoretic or pallor HEENT Reports moist mucous membranes HEENT Narrative: Head is atraumatic normocephalic. Ears normal. Nares patent. Posterior pharynx out erythema or exudate. Uvula midline. No deviation with protrusion. Eyes PERRL and EOMs intact bilaterally General Eye ED: Negative for pale conjunctiva or scleral icterus Neck no lymphadenopathy, supple and no JVD Resp normal respiratory effort and clear to auscultation bilaterally Cardio regular rate, regular rhythm, S1 normal heart sound, S2 normal heart sound and no murmurs GI normal to inspection, nondistended, normoactive bowel sounds, non-tender, non- distended and no masses; Negative for hepatosplenomegaly GI Narrative: There is no palpable pulsatile mass. There is no abdominal bruit. Palpation: soft Back/Spine no CVA tenderness Cervical Spine: Negative for cervical spine tenderness Thoracic Spine / Upper Back: Negative for thoracic spinal tenderness Lumbar Spine / Lower Back: Negative for lumbar spinal tenderness Extremity normal to inspection General Extremety ED: Negative for edema or tenderness General Extremity: Negative for edema Neuro oriented x3, CN's II-XII intact bilaterally and no sensory deficits noted Neuro Narrative: There is no dysmetria. There is no clonus or Babinski sign. Loraine-Hallpike maneuver was negative. The eye askew test and hints test were negative. Patient complained of dizziness as if she was going to pass out when she was asked to rise from supine position. Sensorium / Orientation: alert Motor Exam: strength 5/5 throughout Psych mental status grossly normal Skin no rashes or lesions noted and no wounds General Skin Exam: Negative for jaundice or pallor MDM MDM MDM Narrative Medical decision making narrative: Will have nurse perform orthostatic vitals since she complains of lightheadedness with upright position and has a normal neurologic exam. Will obtain CBC to assess for white count and H&H. BMP to assess glucose and anion gap since she is diabetic. Lab Data Attestation: I reviewed the patient's lab results. Lab results narrative: CBC is normal. Basic metabolic panel is remarkable for glucose of 270 with a normal CO2 anion gap. BUN and creatinine are normal. Labs: Laboratory Results - last 24 hr 12/12/23 20:20 WBC 6.6 RBC 4.98 Hgb 14.2 Hct 42.3 MCV 84.9 MCH 28.5 MCHC 33.6 RDW Std Deviation 44.8 H RDW Coeff of Ginger 14.5 Plt Count 242 MPV 9.6 Immature Gran % (Auto) 0.300 Neut % (Auto) 54.3 Lymph % (Auto) 35.7 Graham % (Auto) 5.7 Eos % (Auto) 3.5 Baso % (Auto) 0.5 Absolute Neuts (auto) 3.6 Absolute Lymphs (auto) 2.36 Nucleated RBC % 0 Sodium 136 Potassium 3.6 Chloride 107 Carbon Dioxide 25.0 Anion Gap 4 L BUN 8 Creatinine 0.78 Estim Creat Clear Calc 62.65 Est GFR (MDRD) Af Amer 97 Est GFR (MDRD) Non-Af 80 BUN/Creatinine Ratio 10.3 Glucose 270 H Calcium 9.3 Treatment and Re-Evaluation :: Orthostatic vital signs are negative. Patient is presently asymptomatic. Will discharge to home she may be asymptomatic since she received a fluid bolus prior to the orthostatic vital signs. Discharge Plan Triage Chief Complaint: Dizziness ED Provider: Lawson Reid Dx/Rx/DC Orders Clinical Impression: Orthostatic lightheadedness, Type 2 diabetes mellitus with hyperglycemia, Elevated blood pressure reading in office with diagnosis of hypertension Instructions: ED Dizziness, Uncertain Cause Prescriptions: No Action ibuprofen 600 mg tablet 600 mg PO Q6H PRN PRN (Reason: pain) Qty: 20 0RF metformin 500 mg tablet extended release 24 hr 500 mg PO DAILY Patient Comments: TAKE 4 TABLETS BY MOUTH DAILY WITH FOOD. insulin glargine [Lantus Solostar U-100 Insulin] 100 unit/mL (3 mL) insulin pen 26 unit SUBCUT QHS Patient Comments: INJECT 22 UNITS SUBCUTANEOUSLY DAILY AT BEDTIME. methocarbamol 500 mg tablet See Rx Instructions .ROUTE .COMPLEX Qty: 56 1RF Rx Instructions: 1 to 2 pills by mouth 4 times daily as needed muscle pain/spasm Primary Care Provider: Lucio Simpson Referrals: Lucio Simpson MD [Primary Care Provider] - As Needed Print Language: Irish Disposition Disposition: Home, Self Care
== END 2023-12-12 22:35 | disposition home or self-care (01) ==
PROVIDERS: Emergency Provider Emergency Medicine; PCP Family Medicine; Visit Provider Emergency Medicine
DX: R42 Dizziness and giddiness (principal); E11.65 Type 2 diabetes mellitus with hyperglycemia; Z79.4 Long term (current) use of insulin; F17.200 Nicotine dependence, unspecified, uncomplicated; I10 Essential (primary) hypertension
CPT/HCPCS: 80048; 85025; 99285; J7040; A4216

== ENCOUNTER 2024-03-05 19:26 | Emergency (ER) | payer OTHER, SELFPAY ==
[2024-03-05 19:27] VITALS: BP 128/78; PULSE 100; RESP 18; TEMP 36.6; O2SAT 98; BMI 24.6
--- NOTE | 2024-03-05 21:07 | EKG12_ITS ---
Test Reason : N/V Blood Pressure : / mmHG Vent. Rate : 076 BPM Atrial Rate : 076 BPM P-R Int : 128 ms QRS Dur : 068 ms QT Int : 368 ms P-R-T Axes : 043 -21 029 degrees QTc Int : 414 ms Normal sinus rhythm Inferior infarct , age undetermined Abnormal ECG When compared with ECG of 17-DEC-2019 09:31, Inferior infarct is now Present Confirmed by GRANT WATERS, FABIOLA ([id number]), image editor IGOR STOREY ([id number]) on 03/07/2024 2:05:15 PM Referred By: Confirmed By:FABIOLA BURNS MD
[2024-03-05 21:21] LABS: Absolute Lymphocyte Count 2.01 X10^3/uL (0.83-4.51); Absolute Neutrophil Count 4.8 X10^3/uL (2.0-7.7); Basophil# 0.02 X10^3/uL; Basophil% 0.3 % (0-1); Eosinophil# 0.19 X10^3/uL; Eosinophils% 2.6 % (0-5); Hematocrit 43.1 % (37-47); Hemoglobin 14.1 g/dL (12.0-15.0); Lymphocyte # 2.01 X10^3/ul (0.83-4.51); Mean Corp Hgb Conc 32.7 g/dL (32-36); Mean Corpuscular Hgb 28.4 pg (27.0-32.0); Mean Corpuscular Volume 86.7 fL (81-99); Mean Platelet Vol. 9.5 fl (6.2-12.0); Monocyte# 0.46 X10^3/uL; Monocyte% 6.2 % (0-10); NRBC Flagged by Analyzer 0 % (0-5); Neutrophil # 4.75 X10^3/uL (2.7-7.7); Neutrophil % 63.6 % (47-70); Platelet Count 226 K/mm3 (150-450); RBC Distribution Width CV 13.2 % (11.6-14.6); RBC Distribution Width SD 41.4 fl (35.1-43.9); Red Blood Count 4.97 M/mm3 (4.2-5.4); White Blood Count 7.5 K/mm3 (4.4-11.0)
--- NOTE | 2024-03-05 21:25 | RAD_ITS ---
EXAM: XR CHEST, 2 VIEWS CLINICAL INDICATION: Dyspnea TECHNIQUE: Frontal and lateral views of the chest. COMPARISON: 12/17/2019 FINDINGS: LUNGS AND PLEURAL SPACES: Mild interstitial prominence and borderline hyperinflation perhaps secondary to COPD. No definite focal pneumonia. No pneumothorax. No effusion. HEART: No significant abnormality. Cardiac silhouette not enlarged. MEDIASTINUM: Central airways and mediastinal contour are unremarkable. BONES/JOINTS: Degenerative changes in the spine is scoliotic curvature. No acute fracture. SOFT TISSUES: No significant abnormality. VASCULATURE: Atherosclerosis. RAD/Chest PA and Lateral IMPRESSION: Mild interstitial prominence and borderline hyperinflation perhaps secondary to COPD. No definite focal pneumonia. Electronically Signed: George Garcia DO at 21:38 EDT ,
[2024-03-05 21:37] LABS: Anion Gap 5 (5-15); BUN 10 mg/dL (7-18); BUN/Creat Ratio 12.6 RATIO (10-20); Calcium,Total 9.2 mg/dL (8.5-10.1); Chloride 108 mmol/L (98-107); EST Glomerular Filtration Rate 78 mL/min (>60); Est Glom Filt Rate - Afr Amer 94 mL/min (>60); Estimated Creatinine Clearance 66.08 ml/min; Glucose 181 mg/dL (74-106); Potassium 3.7 mmol/L (3.5-5.1); Sodium Level 139 mmol/L (136-145); Troponin-I HS (w/2H Reflex) 21 pg/mL (3.0-54.0)
--- NOTE | 2024-03-05 21:52 | EDS_ITS ---
HPI History of Present Illness Chief Complaint: Nausea/Vomiting Detail of Chief Complaint: Dizziness and multiple other symptoms Informant: patient Onset/Context/Timing Onset: Today and Hours Context: Sudden Onset Timing: Intermittent Quality: Dizziness, shortness of breath, chest discomfort Location: Cardiorespiratory Current Severity: Mild Maximum Severity: Moderate Worsened by: Nothing Relieved by: Nothing Associated Symptoms Associated Symptoms: Denies double vision, blurred vision, loss of vision Narrative Narrative: Patient now complains of nausea when she eats or drinks anything. She states she has been seen here before for dizziness with no cause. Review of prior records indicates he has been here for multiple reasons. She presently is not complaining of dizziness. Her definition of dizziness is lightheaded as if she is can a fall. She has type 2 diabetes on insulin. She denies headache, double vision or loss of vision. Denies ringing or ears decreased hearing. No trouble speech or swallowing. She denies paresthesia, anesthesia or motor weakness upper lower extremity. Denies problems with coordination or balance. She reports shortness of breath that was transient. There is no pleuritic chest pain. She denies history of PE or DVT. Denies leg pain, swelling or discoloration. She denies black or maroon-colored stool. She denies any urologic symptoms. She also complains of chest pain. Mid chest she cannot tell me how long it lasted. It is sharp in nature. It was not related to food, change in position or exertion. Prior similar symptoms: Yes (Per patient) Recent Illness/Hospitalization: No PFSH PFSH Medical History (Updated 03/05/24 @ 22:[address] Lawson Reid MD) Diabetes HTN (hypertension) Neck pain Arthritis Home Medications ?Medication ?Instructions ?Recorded ?Last Taken ?Type ibuprofen 600 mg tablet 600 mg PO Q6H PRN PRN pain #20 tabs 01/20/22 Unknown Rx insulin glargine 100 unit/mL (3 26 unit subcut QHS 12/30/22 Unknown History mL) subcutaneous pen (Lantus Solostar U-100 Insulin) metformin 500 mg tablet,extended 500 mg PO DAILY 12/30/22 Unknown History release 24 hr methocarbamol 500 mg tablet See Rx Instructions .Route 12/31/22 Unknown Rx .COMPLEX #56 tabs Allergy/AdvReac Type Severity Reaction Status Date / Time No Known Allergies Allergy Verified 03/05/24 19:29 Family History Father Cancer Sister Diabetes Social History Smoking Status: Light Smoker (<10/day) alcohol intake: never ROS ROS ED Constitutional Constitutional ED: Denies chills, fever(s), subjective or sweats Eyes Eyes: Denies blurry vision or diplopia ENT ENT ED: Denies ear pain, rhinorrhea or sore throat Cardiovascular Cardiovascular: Reports chest pain; Denies orthopnea, palpitations, paroxysmal nocturnal dyspnea or racing heartbeat Respiratory/Chest Respiratory/Chest: Reports dyspnea; Denies cough, dyspnea on exertion, orthopnea or paroxysmal nocturnal dyspnea Gastrointestinal Gastrointestinal: Reports nausea; Denies abdominal pain, melena or vomiting Genitourinary Genitourinary ED: Denies dysuria, hematuria or urinary frequency Musculoskeletal Musculoskeletal: Denies arthralgias, back pain or myalgias Integumentary Denies rash Neurologic Neurologic: Denies headache(s) or paresthesias Psychiatric Psychiatric: Reports anxiety and depression Endocrine Endocrinology: Denies cold intolerance or heat intolerance Hematologic/Lymphatic Hematologic/Lymphatic: Reports systems reviewed and no addt'l complaints, except as documented EXAM Physical Exam Const Vital Signs: 03/05/24 19:27 03/05/24 23:04 03/06/24 00:51 Temperature 97.9 F 98.0 F Temperature Source Temporal Pulse Rate 100 73 Pulse Rate [Lying] 70 Pulse Rate [Sitting (for 1 minute prior to obtaining)] 92 Pulse Rate [Standing (for 1 minute prior to obtaining)] 88 Respiratory Rate 18 19 H Blood Pressure 128/78 H 133/96 H Blood Pressure [Lying] 142/81 H Blood Pressure [Sitting (for 1 minute prior to obtaining)] 146/78 H Blood Pressure [Standing (for 1 minute prior to obtaining)] 144/83 H Blood Pressure Mean 94 108 Blood Pressure Mean [Lying] 101 Blood Pressure Mean [Sitting (for 1 minute prior to obtaining)] 100 Blood Pressure Mean [Standing (for 1 minute prior to obtaining)] 103 Pulse Ox 98 95 Oxygen Delivery Method Room Air Positive well nourished and well developed General Appearance ED: well developed and NAD; Negative for cyanotic, diaphoretic or pallor HEENT Reports TM's clear and moist mucous membranes HEENT Narrative: Head is atraumatic normocephalic. Ears normal. Nares patent. Posterior pharynx normal. Patient wears corrective glasses. Tympanic Membrane ED: Yes TM's clear Eyes PERRL and EOMs intact bilaterally General Eye ED: Negative for pale conjunctiva or scleral icterus Neck no lymphadenopathy, supple and no JVD Chest Wall inspection of chest normal and palpation of chest normal Resp normal respiratory effort and clear to auscultation bilaterally Cardio regular rate, regular rhythm, S1 normal heart sound, S2 normal heart sound and no murmurs GI normal to inspection, nondistended, normoactive bowel sounds, non-tender, non- distended and no masses; Negative for hepatosplenomegaly GI Narrative: There is no palpable pulsatile mass. There is no abdominal bruit. Back/Spine no CVA tenderness Extremity normal to inspection Extremity Narrative: There is no asymmetry, swelling, discoloration, leg vein distention, palpable cords or tenderness along the distribution of the deep venous system. General Extremety ED: Negative for edema or tenderness General Extremity: Negative for edema Neuro oriented x3, CN's II-XII intact bilaterally and no sensory deficits noted Sensorium / Orientation: alert Motor Exam: strength 5/5 throughout Psych Mood & Affect: depressed Skin no rashes or lesions noted, no wounds and No skin turgor normal General Skin Exam: Negative for jaundice or pallor MDM MDM MDM Narrative Medical decision making narrative: Since patient complains of orthostatic lightheadedness orthostatic vital signs were ordered. Because she is diabetic with chest pain shortness of breath will obtain EKG and troponin with 2-hour reflex troponin. Will assess electrolytes, blood sugar, anion gap and renal function since she is diabetic and history of hypertension. CBC to rule out anemia. With regards to the BMP also to assess BUN/creatinine ratio. If this is elevated will need to consider GI bleed if she is orthostatic positive or anemic. Lab Data Attestation: I reviewed the patient's lab results. Lab results narrative: CBC is normal. Basic metabolic panel is unremarkable. First troponin is normal at 21. Glucose was elevated 181 with a normal CO2 anion gap. Labs: Laboratory Results - last 24 hr 03/05/24 03/05/24 21:13 23:41 WBC 7.5 RBC 4.97 Hgb 14.1 Hct 43.1 MCV 86.7 MCH 28.4 MCHC 32.7 RDW Std Deviation 41.4 RDW Coeff of Ginger 13.2 Plt Count 226 MPV 9.5 Immature Gran % (Auto) 0.300 Neut % (Auto) 63.6 Lymph % (Auto) 27.0 [place] % (Auto) 6.2 Eos % (Auto) 2.6 Baso % (Auto) 0.3 Absolute Neuts (auto) 4.8 Absolute Lymphs (auto) 2.01 Nucleated RBC % 0 Sodium 139 Potassium 3.7 Chloride 108 H Carbon Dioxide 26.0 Anion Gap 5 BUN 10 Creatinine 0.80 Estim Creat Clear Calc 66.08 Est GFR (MDRD) Af Amer 94 Est GFR (MDRD) Non-Af 78 BUN/Creatinine Ratio 12.6 Glucose 181 H Calcium 9.2 Troponin I High Sens 21 19 Radiography Chest X-Ray - ED: 1 View and Read by ED Physician (Chest x-ray reveals chronic changes consistent with COPD. There is no infiltrate or effusion noted. Cardiac silhouette and size normal. [place] is normal. Osseous structures are unremarkable. There is evidence of hyperaeration.) Diagnostic Testing: Clinical Impression(s) from Imaging Studies Chest X-Ray 03/05/24 21:25 IMPRESSION: Mild interstitial prominence and borderline hyperinflation perhaps secondary to COPD. No definite focal pneumonia. Electronically Signed: George Garcia DO at 21:38 EDT , EKG Initial EKG: Attestation: I personally reviewed and interpreted this EKG as follows: Interpretation: Sinus Rhythm (Normal sinus rhythm rate of 76. The EKG my opinion is normal. RI interval is 128 ms. QS duration 68 ms. QT duration 3068 ms. [place] is normal. There is no acute ischemic changes noted.) Treatment and Re-Evaluation :: Patient was turned over to the evening physician Dr. Stephens. If troponin is negative patient be discharged. Discharge Plan Triage Chief Complaint: Nausea/Vomiting ED Provider: Lawson Reid Dx/Rx/DC Orders Clinical Impression: Chest pain, Dizziness, Type 2 diabetes mellitus treated with insulin, Elevated blood pressure reading with diagnosis of hypertension, Dyspnea, History of COPD Instructions: ED Chest Pain, Noncardiac, ED Chest Pain, Uncertain Cause, ED Hypertension, Established Prescriptions: No Action ibuprofen 600 mg tablet 600 mg PO Q6H PRN PRN (Reason: pain) Qty: 20 0RF metformin 500 mg tablet extended release 24 hr 500 mg PO DAILY Patient Comments: TAKE 4 TABLETS BY MOUTH DAILY WITH FOOD. insulin glargine [Lantus Solostar U-100 Insulin] 100 unit/mL (3 mL) insulin pen 26 unit SUBCUT QHS Patient Comments: INJECT 22 UNITS SUBCUTANEOUSLY DAILY AT BEDTIME. methocarbamol 500 mg tablet See Rx Instructions .ROUTE .COMPLEX Qty: 56 1RF Rx Instructions: 1 to 2 pills by mouth 4 times daily as needed muscle pain/spasm Stand Alone Forms: ED Work / School Excuse Primary Care Provider: Luico Simpson Referrals: Lucio Simpson MD [Primary Care Provider] - 3-5 Days if not improving Print Language: Faroese Disposition Disposition: Home, Self Care Discharge Date/Time: 03/06/24 00:53
[2024-03-05 23:04] VITALS: BP 142/81; BP 144/83; BP 146/78; PULSE 70; PULSE 88; PULSE 92
[2024-03-05 23:17] LABS: Reflex Troponin-HS? (from REC) Y
[2024-03-06 00:03] LABS: Troponin-I HS 19 pg/mL (3.0-54.0)
[2024-03-06 00:51] VITALS: BP 133/96; PULSE 73; RESP 19; TEMP 36.7; O2SAT 95
== END 2024-03-06 00:53 | disposition home or self-care (01) ==
PROVIDERS: Emergency Provider Emergency Medicine; PCP Family Medicine; Visit Provider Emergency Medicine
DX: R42 Dizziness and giddiness (principal); J44.9 Chronic obstructive pulmonary disease, unspecified; E11.9 Type 2 diabetes mellitus without complications; Z79.4 Long term (current) use of insulin; R07.9 Chest pain, unspecified; I10 Essential (primary) hypertension; Z79.84 Long term (current) use of oral hypoglycemic drugs; F17.200 Nicotine dependence, unspecified, uncomplicated; R06.00 Dyspnea, unspecified
CPT/HCPCS: 71046; 80048; 84484; 85025; 93005; 99284

== ENCOUNTER 2024-04-13 18:31 | Emergency (ER) | payer OTHER, SELFPAY ==
[2024-04-13 18:33] VITALS: BP 144/65; PULSE 95; RESP 28; TEMP 36.1; O2SAT 98; BMI 23.9
--- NOTE | 2024-04-13 18:44 | ED.VIS.GI ---
HPI HPI - GI History of Present Illness Chief Complaint: Abd Pain Informant: patient Abdominal Pain/Flank Pain Onset: Days Context: Gradual Onset Timing: Continuous Quality: Aching Location: Diffuse Worsened by: Nothing Relieved by: Nothing Nausea/Vomiting/Emesis GI Symptom: Positive for Nausea and Vomiting Quality: Positive for Nonbilious; Negative for Blood streaks, Coffee ground or Hematemesis Diarrhea/Melena/Hematochezia GI Symptom: Positive for Diarrhea; Negative for Melena or Hematochezia Associated Symptoms Associated Symptoms: Negative for Dysuria, Frequency or Hematuria Narrative Narrative: Patient presents with abdominal pain that has been getting worse over the past few days. Patient states it is gradually getting worse. Patient states it is constant. Patient states her pain is aching. Patient states it is worse over the upper abdomen but also radiates into the right lower abdomen. Patient states the pain radiates up into her chest. Patient admits to some nausea and vomiting. Patient denies any hematemesis or coffee-ground emesis. Patient admits to diarrhea but denies any melena or hematochezia. Patient admits to some urinary frequency but denies any dysuria or hematuria. Patient denies any fevers or chills. [facility] Medical History (Updated 04/13/24 @ 20:[address] Cassius Gonzalez, DO) Diabetes HTN (hypertension) Neck pain Arthritis Home Medications ?Medication ?Instructions ?Recorded ?Last Taken ?Type ibuprofen 600 mg tablet 600 mg PO Q6H PRN PRN pain #20 tabs 01/20/22 Unknown Rx insulin glargine 100 unit/mL (3 26 unit subcut QHS 12/30/22 Unknown History mL) subcutaneous pen (Lantus Solostar U-100 Insulin) metformin 500 mg tablet,extended 500 mg PO DAILY 12/30/22 Unknown History release 24 hr methocarbamol 500 mg tablet See Rx Instructions .Route 12/31/22 Unknown Rx .COMPLEX #56 tabs amoxicillin 875 mg-potassium 875 mg PO Q12H #20 TABLETS 04/13/24 Unknown Rx clavulanate 125 mg tablet omeprazole 20 mg capsule,delayed 20 mg PO 04/13/24 Unknown History release pioglitazone 15 mg tablet 15 mg PO DAILY 04/13/24 Unknown History Allergy/AdvReac Type Severity Reaction Status Date / Time No Known Allergies Allergy Verified 04/13/24 18:33 Family History Father Cancer Sister Diabetes Surgical History no surgical history no surgical history Social History Smoking Status: Light Smoker (<10/day) alcohol intake: never ROS ROS ED Constitutional Constitutional ED: Denies chills or fever(s) Eyes Eyes: Denies blurry vision or change in vision ENT ENT ED: Reports sore throat; Denies rhinorrhea Cardiovascular Cardiovascular: Reports chest pain; Denies palpitations Respiratory/Chest Respiratory/Chest: Reports dyspnea; Denies cough Gastrointestinal Gastrointestinal: Reports abdominal pain, diarrhea, nausea and vomiting; Denies melena Genitourinary Genitourinary ED: Reports urinary frequency; Denies dysuria or hematuria Musculoskeletal Musculoskeletal: Reports neck pain; Denies back pain Integumentary Denies abscess or rash Neurologic Neurologic: Reports headache(s); Denies weakness Allergic/Immunologic Allergic/Immunologic ED: Denies mouth swelling or urticaria EXAM Physical Exam Const Vital Signs: 04/13/24 18:33 Temperature 96.9 F L Temperature Source Temporal Pulse Rate 95 Respiratory Rate 28 H Blood Pressure 144/65 H Blood Pressure Mean 91 Pulse Ox 98 Oxygen Delivery Method Room Air Positive well nourished and well developed General Appearance ED: well developed and NAD HEENT Reports moist mucous membranes Neck supple and no JVD Resp normal respiratory effort and clear to auscultation bilaterally Cardio regular rate and regular rhythm GI non-distended Palpation: soft and tender epigastric, RLQ, LUQ, RUQ, periumbilical and suprapubic; Negative for guarding or rebound tenderness present Extremity full ROM General Extremety ED: Negative for edema or tenderness General Extremity: Negative for edema Neuro CN's II-XII intact bilaterally, moves all extremities and no sensory deficits noted Sensorium / Orientation: alert, oriented to person, oriented to place and oriented to time Motor Exam: strength 5/5 throughout Psych mental status grossly normal and thought process normal Mood & Affect: anxious MDM MDM MDM Narrative Medical decision making narrative: Differential diagnosis includes bowel obstruction, perforation, colitis, appendicitis, pancreatitis, pyelonephritis, peptic ulcer disease, duodenal ulcer, ureteral calculus, cardiac dysrhythmia, and cardiac ischemia. EKG will be obtained to assess for cardiac dysrhythmia and cardiac ischemia. CT scan of the abdomen pelvis will be obtained to assess for bowel obstruction, perforation, appendicitis, and pancreatitis. CBC will be obtained to assess for leukocytosis and anemia. Comprehensive metabolic profile will be obtained to assess for hepatic function, renal function, and electrolyte abnormality. Lipase will be obtained to assess for pancreatitis. High-sensitivity troponin will be obtained to assess for cardiac ischemia. Lab Data Attestation: I reviewed the patient's lab results. Lab results narrative: CBC was reviewed and was within normal limits. Comprehensive metabolic profile was reviewed. Glucose was slightly elevated at 177. Alkaline phosphatase was slightly elevated at 118. The remainder is within normal limits. Lipase was reviewed and was normal at 26. High-sensitivity troponin was reviewed and was normal at 20. Urinalysis was reviewed. There is glucosuria of 1000. There is no evidence of urinary tract infection or hematuria. Labs: Laboratory Results - last 24 hr 04/13/24 18:25 WBC 8.2 RBC 5.12 Hgb 14.6 Hct 44.6 MCV 87.1 MCH 28.5 MCHC 32.7 RDW Std Deviation 45.7 H RDW Coeff of Ginger 14.3 Plt Count 246 MPV 9.3 Immature Gran % (Auto) 0.100 Neut % (Auto) 53.7 Lymph % (Auto) 37.3 [place] % (Auto) 5.5 Eos % (Auto) 3.2 Baso % (Auto) 0.2 Absolute Neuts (auto) 4.4 Absolute Lymphs (auto) 3.06 Nucleated RBC % 0 Sodium 140 Potassium 3.2 L Chloride 109 H Carbon Dioxide 26.0 Anion Gap 6 BUN 11 Creatinine 0.76 Estim Creat Clear Calc 64.30 Est GFR (MDRD) Af Amer 100 Est GFR (MDRD) Non-Af 83 BUN/Creatinine Ratio 14.6 Glucose 177 H Calcium 9.2 Total Bilirubin 0.30 AST 29 ALT 30 Alkaline Phosphatase 118 H Troponin I High Sens 20 Total Protein 7.4 Albumin 3.6 Globulin 3.8 Albumin/Globulin Ratio 0.9 Lipase 26 Urine Color Yellow Urine Clarity Clear Urine pH 6.0 Ur Specific [place] 1.015 Urine Protein 30 H Urine Glucose (UA) 1000 H Urine Ketones Negative Urine Occult Blood 50 H Urine Nitrite Negative Urine Bilirubin Negative Urine Urobilinogen Normal Ur Leukocyte Esterase 25 H Urine RBC 0-5 SEEN Urine WBC 0-5 SEEN Ur Squamous Epith Cells 0-5 SEEN Ur Renal Epithelial Cell 0-5 SEEN Urine Bacteria 0 SEEN Urine Mucus 0 SEEN Radiography Diagnostic Testing: Clinical Impression(s) from Imaging Studies Abdomen/Pelvis CT 04/13/24 19:24 IMPRESSION: No stones without definitive evidence for acute cholecystitis Ultrasound of the gallbladder or HIDA scan would be helpful for further evaluation if indicated Findings which may be consistent with nonspecific colitis. No evidence for small bowel obstruction or other acute abnormality Electronically Signed: Junior Bee MD at 20:03 EST Reading Location ID and State: [facility] / [place] Tel , Service support , CT scan of the abdomen and pelvis was obtained. There is nonspecific colitis noted in the ascending, transverse, and descending colon. There is no evidence of appendicitis. There is a tiny calcified gallstone but no evidence of acute cholecystitis. This was interpreted by the radiologist and was also independently reviewed by myself. EKG Initial EKG: Attestation: I personally reviewed and interpreted this EKG as follows: Interpretation: No Acute Injury Pattern and Sinus Tachycardia (102) Comments: EKG was obtained. On my independent interpretation, it showed a normal sinus rhythm with a rate of 102. UT interval, QRS interval, and QTc intervals were all normal. [place] was normal. There are no acute ST or T wave changes. Treatment and Re-Evaluation :: Patient was given IV fluids, morphine, and Zofran. Patient was advised of her findings. Patient was given a dose of Augmentin here. Patient was given a prescription for Augmentin. Patient was instructed to follow-up with her primary care physician in 5 to 7 days. Patient was instructed to eat a bland diet. Patient was instructed to return if worse in any way. Patient understood and was agreeable with the plan. All questions were answered. Discharge Plan Triage Chief Complaint: Abd Pain ED Provider: Cassius Gonzalez Dx/Rx/DC Orders Clinical Impression: Colitis, Tobacco use Instructions: ED Understanding Colitis Prescriptions: New amoxicillin-pot clavulanate 875-125 mg tablet 875 mg PO Q12H Qty: 20 0RF No Action ibuprofen 600 mg tablet 600 mg PO Q6H PRN PRN (Reason: pain) Qty: 20 0RF metformin 500 mg tablet extended release 24 hr 500 mg PO DAILY Patient Comments: TAKE 4 TABLETS BY MOUTH DAILY WITH FOOD. insulin glargine [Lantus Solostar U-100 Insulin] 100 unit/mL (3 mL) insulin pen 26 unit SUBCUT QHS Patient Comments: INJECT 22 UNITS SUBCUTANEOUSLY DAILY AT BEDTIME. methocarbamol 500 mg tablet See Rx Instructions .ROUTE .COMPLEX Qty: 56 1RF Rx Instructions: 1 to 2 pills by mouth 4 times daily as needed muscle pain/spasm pioglitazone 15 mg tablet 15 mg PO DAILY omeprazole 20 mg capsule,delayed release(DR/EC) 20 mg PO Primary Care Provider: Lucio Simpson Referrals: Lucio Simpson MD [Primary Care Provider] - Print Language: Bangladeshi Disposition Disposition: Home, Self Care
--- NOTE | 2024-04-13 18:49 | EKG12_ITS ---
Test Reason : ABD PAIN Blood Pressure : */* mmHG Vent. Rate : 102 BPM Atrial Rate : 102 BPM P-R Int : 140 ms QRS Dur : 76 ms QT Int : 352 ms P-R-T Axes : 60 -18 54 degrees QTcB Int : 458 ms Sinus tachycardia Otherwise normal ECG Confirmed by Ruddy Pascal ([id number]), purchase request editor CHELSEY HE ([id number]) on 04/16/2024 11:30:39 AM Referred By: ES Confirmed By: Ruddy Pascal
[2024-04-13] MEDS: Ondansetron 4 MG/2 ML Vial IV (18:56)
[2024-04-13] MEDS: Morphine 4 MG/ML Syringe IV (18:56)
[2024-04-13 18:57] LABS: Bacteria 0 SEEN /hpf (None Seen); Mucous, Urine 0 SEEN /hpf (<or=2+)
[2024-04-13] MEDS: 0.9% Normal Saline (1000mL) 1,000 ML 1000 ML IV (18:57)
[2024-04-13 19:00] LABS: Absolute Lymphocyte Count 3.06 X10^3/uL (0.83-4.51); Absolute Neutrophil Count 4.4 X10^3/uL (2.0-7.7); Basophil# 0.02 X10^3/uL; Basophil% 0.2 % (0-1); Eosinophil# 0.26 X10^3/uL; Eosinophils% 3.2 % (0-5); Hematocrit 44.6 % (37-47); Hemoglobin 14.6 g/dL (12.0-15.0); Lymphocyte # 3.06 X10^3/ul (0.83-4.51); Lymphocyte % 37.3 % (19-41); Mean Corp Hgb Conc 32.7 g/dL (32-36); Mean Corpuscular Hgb 28.5 pg (27.0-32.0); Mean Corpuscular Volume 87.1 fL (81-99); Mean Platelet Vol. 9.3 fl (6.2-12.0); Monocyte# 0.45 X10^3/uL; Monocyte% 5.5 % (0-10); NRBC Flagged by Analyzer 0 % (0-5); Neutrophil # 4.41 X10^3/uL (2.7-7.7); Neutrophil % 53.7 % (47-70); Platelet Count 246 K/mm3 (150-450); RBC Distribution Width CV 14.3 % (11.6-14.6); RBC Distribution Width SD 45.7 fl (35.1-43.9); Red Blood Count 5.12 M/mm3 (4.2-5.4); White Blood Count 8.2 K/mm3 (4.4-11.0)
[2024-04-13 19:10] LABS: Color, Urine Yellow (Yellow); Glucose, Dipstick 1000 mg/dl (Normal); Ketone-Dipstick Negative (Negative); Leukocyte Esterase-Dipstick 25 /ul (Negative); Nitrite-Dipstick Negative (Negative); Occult Blood-Urine 50 /ul (Negative); Protein-Dipstick 30 mg/dl (Negative); Specific Gravity, Urine 1.015 (1.002-1.030); Urine Bilirubin Dipstick Negative (Negative); Urine Clarity Clear (Clear); Urine Urobilinogen Normal (Normal)
[2024-04-13 19:18] LABS: ALB/GLOB Ratio 0.9 RATIO (0.9-2.4); AST(SGOT) 29 U/L (15-37); Alanine Aminotransfer ALT/SGPT 30 U/L (13-56); Albumin, Serum 3.6 g/dL (3.2-5.0); Alkaline Phosphatase 118 U/L (45-117); Anion Gap 6 (5-15); BUN 11 mg/dL (7-18); BUN/Creat Ratio 14.6 RATIO (10-20); Calcium,Total 9.2 mg/dL (8.5-10.1); Chloride 109 mmol/L (98-107); Creatinine, Serum 0.76 mg/dL (0.55-1.02); EST Glomerular Filtration Rate 83 mL/min (>60); Est Glom Filt Rate - Afr Amer 100 mL/min (>60); Globulin 3.8 g/dL (2.2-4.2); Glucose 177 mg/dL (74-106); Lipase 26 U/L (13-75); Potassium 3.2 mmol/L (3.5-5.1); Protein, Total 7.4 g/dL (6.4-8.2); Sodium Level 140 mmol/L (136-145); Troponin-I HS 20 pg/mL (3.0-54.0)
--- NOTE | 2024-04-13 19:24 | CT_ITS ---
STUDY: CT ABDOMEN AND PELVIS WITH CONTRAST REASON FOR EXAM: Female, 63 years old. Abdominal pain RADIATION DOSAGE (If Supplied By Facility): CTDIvol = ( 10.05 ) mGy, DLP = ( 535.86 ) mGycm TECHNIQUE: Transaxial images were obtained from the dome of the diaphragm to the symphysis pubis without oral contrast. IV 100mL Isovue-370 was administered. Sagittal and coronal images were reconstructed. Individualized dose optimization techniques were used for this CT. COMPARISON: June 02, 2022 FINDINGS: The visualized lung bases are unremarkable. The visualized portions of the heart are within normal limits. Normal liver. Tiny calcified gallstone without evidence for acute cholecystitis. Normal spleen. Normal pancreas. Normal bilateral adrenal glands. Normal right kidney. Normal left kidney. Normal visualized stomach. Normal small intestine. There is diffusely ahaustral appearance to the colon with submucosal fat deposition involving the ascending transverse and much of the descending colon consistent with nonspecific sinus.. The appendix is visualized and appears normal. Atherosclerotic change of the aorta without evidence for aneurysm. Normal inferior vena cava. Normal retroperitoneum. Normal urinary bladder. Normal abdominal wall. Lumbar spine demonstrates mild spondylosis CT/Abdomen/Pelvis W IV Cont ONLY IMPRESSION: No stones without definitive evidence for acute cholecystitis Ultrasound of the gallbladder or HIDA scan would be helpful for further evaluation if indicated Findings which may be consistent with nonspecific colitis. No evidence for small bowel obstruction or other acute abnormality Electronically Signed: Junior Bee MD at 20:03 EST ,
[2024-04-13 19:35] LABS: Red Blood Cells-Urine 0-5 SEEN /hpf (0-5); Renal Epithelial Cells 0-5 SEEN /hpf (0-5); Squamous Epithelial Cells - UA 0-5 SEEN /hpf (5-10); White Blood Cells 0-5 SEEN /hpf (0-5)
[2024-04-13 20:21] VITALS: BP 178/84; PULSE 101; RESP 18; TEMP 36.8; O2SAT 98
[2024-04-13] MEDS: Amox/Clavulanate 875 MG Tablet PO (20:23)
== END 2024-04-13 20:26 | disposition home or self-care (01) ==
PROVIDERS: Emergency Provider Emergency Medicine; PCP Family Medicine; Visit Provider Emergency Medicine
DX: R10.9 Unspecified abdominal pain (principal); E11.9 Type 2 diabetes mellitus without complications; Z79.4 Long term (current) use of insulin; K52.9 Noninfective gastroenteritis and colitis, unspecified; I10 Essential (primary) hypertension; Z79.84 Long term (current) use of oral hypoglycemic drugs; Z79.899 Other long term (current) drug therapy; F17.200 Nicotine dependence, unspecified, uncomplicated; R11.2 Nausea with vomiting, unspecified
CPT/HCPCS: 74177; 80053; 81001; 83690; 84484; 85025; 93005; 96361; 96374; 96375; 99283; Q9967; A4216; J2405

== ENCOUNTER 2024-06-06 10:24 | Emergency (ER) | payer OTHER, SELFPAY ==
[2024-06-06 10:25] VITALS: BP 163/94; PULSE 112; RESP 20; TEMP 36.6; O2SAT 100; BMI 21.4
--- NOTE | 2024-06-06 10:44 | EKG12_ITS ---
Test Reason : Blood Pressure : */* mmHG Vent. Rate : 84 BPM Atrial Rate : 84 BPM P-R Int : 134 ms QRS Dur : 74 ms QT Int : 374 ms P-R-T Axes : 61 5 43 degrees QTcB Int : 441 ms Normal sinus rhythm Right atrial enlargement Nonspecific ST abnormality Abnormal ECG When compared with ECG of 13-Apr-2024 19:02, No significant change was found Confirmed by ANT WATERS, NANCY ([id number]), make up editor IGOR STOREY ([id number]) on 06/12/2024 7:06:14 AM Referred By: MARK Confirmed By: NANCY CAIN MD
--- NOTE | 2024-06-06 10:45 | EDS_ITS ---
HPI History of Present Illness Chief Complaint: Shortness of Breath Detail of Chief Complaint: Shortness of breath Informant: patient Narrative Narrative: Patient presents with shortness of breath that started yesterday. She has had a slight cough. Today she had 3 bouts of diarrhea. Her grandson is ill with cold symptoms. Patient denies fever. She denies significant chest pain. She states she was admitted in April to [facility] for some abdominal pain issues and she was when she had gallstones and was supposed to have 3 other test that included get getting IV dye and she did not want to do that so she had no further follow-up. Yesterday she had a hard time swallowing food. Denies significant abdominal pain currently. She has had no vomiting. Denies recent travel or surgery. [facility] Medical History (Updated 06/06/24 @ 12:[address] Char Patiño DO) Diabetes HTN (hypertension) Neck pain Arthritis Home Medications ?Medication ?Instructions ?Recorded ?Last Taken ?Type ibuprofen 600 mg tablet 600 mg PO Q6H PRN PRN pain #20 tabs 01/20/22 Unknown Rx insulin glargine 100 unit/mL (3 26 unit subcut QHS 12/30/22 Unknown History mL) subcutaneous pen (Lantus Solostar U-100 Insulin) metformin 500 mg tablet,extended 500 mg PO DAILY 12/30/22 Unknown History release 24 hr methocarbamol 500 mg tablet See Rx Instructions .Route 12/31/22 Unknown Rx .COMPLEX #56 tabs amoxicillin 875 mg-potassium 875 mg PO Q12H #20 TABLETS 04/13/24 Unknown Rx clavulanate 125 mg tablet omeprazole 20 mg capsule,delayed 20 mg PO 04/13/24 Unknown History release pioglitazone 15 mg tablet 15 mg PO DAILY 04/13/24 Unknown History metoclopramide HCl 5 mg tablet 5 mg PO Q6H PRN nausea and 06/06/24 Unknown Rx (Reglan) vomiting #10 tabs Allergy/AdvReac Type Severity Reaction Status Date / Time No Known Allergies Allergy Verified 06/06/24 10:28 Family History Father Cancer Sister Diabetes Social History Smoking Status: Light Smoker (<10/day) alcohol intake: never ROS ROS ED Review of Systems ROS Unobtainable: other Constitutional Constitutional ED: Reports lethargy; Denies chills, fever(s), sweats or weight loss Eyes Eyes: Denies blurry vision, change in vision or diplopia ENT ENT ED: Denies rhinorrhea or sore throat Cardiovascular Cardiovascular: Reports chest pain and racing heartbeat; Denies orthopnea Respiratory/Chest Respiratory/Chest: Reports cough, dyspnea and dyspnea on exertion; Denies orthopnea or sputum Gastrointestinal Gastrointestinal: Reports abdominal pain and diarrhea; Denies nausea or vomiting Genitourinary Genitourinary ED: Denies dysuria, hematuria or urinary frequency Musculoskeletal Musculoskeletal: Denies arthralgias, back pain, myalgias or neck pain Integumentary Denies abscess, Abrasions or rash Neurologic Neurologic: Denies headache(s) or weakness Psychiatric Psychiatric: Denies anxiety, depression or suicidal thoughts Endocrine Endocrinology: Denies polydipsia, polyphagia or polyuria Hematologic/Lymphatic Hematologic/Lymphatic: Denies easy bleeding, easy bruising or lymphadenopathy Allergic/Immunologic Allergic/Immunologic ED: Denies mouth swelling, tongue swelling or urticaria EXAM Physical Exam Const Vital Signs: 06/06/24 10:25 06/06/24 11:09 06/06/24 11:10 Temperature 97.8 F Temperature Source Oral Pulse Rate 112 H Respiratory Rate 20 H Respiratory Effort Short of Breath Respiratory Depth Normal Respiratory Pattern Normal Blood Pressure 163/94 H Blood Pressure Mean 117 Pulse Ox 100 Oxygen Delivery Method Room Air Room Air Room Air Positive well nourished and well developed General Appearance ED: well developed and NAD HEENT Reports TM's clear and moist mucous membranes normocephalic and atraumatic; Negative for trauma or tenderness Tympanic Membrane ED: Yes TM's clear Eyes PERRL and EOMs intact bilaterally General Eye ED: Negative for pale conjunctiva or scleral icterus Neck no lymphadenopathy, supple and no JVD General: Negative for tenderness Chest Wall inspection of chest normal and palpation of chest normal Chest: Negative for tenderness Resp normal respiratory effort and clear to auscultation bilaterally Resp Narrative: Few faint expiratory wheezes bilaterally. 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 Effort and Inspection: Negative for respiratory distress or pain with movement Auscultation: wheezes; Negative for rhonchi or diminished lung sounds Cardio regular rate, regular rhythm, S1 normal heart sound, S2 normal heart sound and no murmurs Peripheral Pulses: pulses 2+ throughout GI normal to inspection, nondistended, normoactive bowel sounds, soft to palpation, non-distended and no masses GI Narrative: Mild diffuse tenderness on exam to the upper abdomen. There is no rebound, rigidity, or peritoneal signs. No mass palpated. Back/Spine no CVA tenderness and no thoracic nor lumbar tenderness Extremity normal to inspection General Extremety ED: Negative for edema General Extremity: Negative for edema Neuro oriented x3, CN's II-XII intact bilaterally, no sensory deficits noted and gait normal Sensorium / Orientation: awake, alert, oriented to person, oriented to place and oriented to time Motor Exam: strength 5/5 throughout and strength abnormal Psych mental status grossly normal Skin no rashes or lesions noted and no wounds MDM MDM MDM Narrative Medical decision making narrative: Patient presents the emergency department with complaint of some shortness of breath. She had slight cough. Diarrhea today x 3. All shows she has had some nausea. IV line established. CBC with differential white count 6.2 with hemoglobin 14.6 and platelet count of 233. Chemistries unremarkable. LFTs were normal other than a slightly elevated alkaline phosphatase at 120. Lipase was normal at 23. 1 view chest x-ray showed no acute disease process. COVID flu and RSV testing was positive for COVID-19. At this point she has an inhaler. She will be given a prescription for Reglan for nausea. She is advised use ibuprofen or Tylenol for discomfort and follow-up with her primary care physician within next 5 to 7 days. Lab Data Attestation: I reviewed the patient's lab results. Labs: Laboratory Results - last 24 hr 06/06/24 10:52 WBC 6.2 RBC 5.04 Hgb 14.6 Hct 43.7 MCV 86.7 MCH 29.0 MCHC 33.4 RDW Std Deviation 42.5 RDW Coeff of Ginger 13.6 Plt Count 233 MPV 9.6 Immature Gran % (Auto) 0.500 Neut % (Auto) 65.2 Lymph % (Auto) 28.2 [place] % (Auto) 4.7 Eos % (Auto) 1.1 Baso % (Auto) 0.3 Absolute Neuts (auto) 4.0 Absolute Lymphs (auto) 1.74 Nucleated RBC % 0 Sodium 141 Potassium 3.2 L Chloride 106 Carbon Dioxide 28.0 Anion Gap 7 BUN 9 Creatinine 0.71 Estim Creat Clear Calc 67.96 Est GFR (MDRD) Af Amer 108 Est GFR (MDRD) Non-Af 89 BUN/Creatinine Ratio 12.7 Glucose 204 H Calcium 9.1 Total Bilirubin 0.50 AST 10 L ALT 18 Alkaline Phosphatase 120 H Troponin I High Sens 26 Total Protein 7.3 Albumin 3.3 Globulin 4.0 Albumin/Globulin Ratio 0.8 L Lipase 23 Radiography Diagnostic Testing: Clinical Impression(s) from Imaging Studies Chest X-Ray 06/06/24 11:00 IMPRESSION: No acute abnormality is seen. Electronically Signed: Luiz Crain MD at 11:53 EST , 1 view chest x-ray obtained interpreted by myself as no evidence of infiltrate or pneumothorax or acute disease process EKG Initial EKG: Attestation: I personally reviewed and interpreted this EKG as follows: Comments: Sinus rhythm with ventricular rate of 84 bpm with right atrial enlargement and nonspecific ST changes Discharge Plan Triage Chief Complaint: Shortness of Breath ED Provider: Char Patiño Dx/Rx/DC Orders Clinical Impression: COVID-19, Acute viral syndrome Instructions: Caring for Someone Who Has COVID-19, ED Viral Syndrome (Adult) Prescriptions: New metoclopramide HCl [Reglan] 5 mg tablet 5 mg PO Q6H PRN (Reason: nausea and vomiting) Qty: 10 0RF No Action ibuprofen 600 mg tablet 600 mg PO Q6H PRN PRN (Reason: pain) Qty: 20 0RF metformin 500 mg tablet extended release 24 hr 500 mg PO DAILY Patient Comments: TAKE 4 TABLETS BY MOUTH DAILY WITH FOOD. insulin glargine [Lantus Solostar U-100 Insulin] 100 unit/mL (3 mL) insulin pen 26 unit SUBCUT QHS Patient Comments: INJECT 22 UNITS SUBCUTANEOUSLY DAILY AT BEDTIME. methocarbamol 500 mg tablet See Rx Instructions .ROUTE .COMPLEX Qty: 56 1RF Rx Instructions: 1 to 2 pills by mouth 4 times daily as needed muscle pain/spasm pioglitazone 15 mg tablet 15 mg PO DAILY omeprazole 20 mg capsule,delayed release(DR/EC) 20 mg PO amoxicillin-pot clavulanate 875-125 mg tablet 875 mg PO Q12H Qty: 20 0RF Primary Care Provider: Lucio Simpson Referrals: Lucio Simpson MD [Primary Care Provider] - Print Language: Cambodian Disposition Disposition: Home, Self Care
[2024-06-06 11:00] LABS: Absolute Lymphocyte Count 1.74 X10^3/uL (0.83-4.51); Basophil# 0.02 X10^3/uL; Basophil% 0.3 % (0-1); Eosinophil# 0.07 X10^3/uL; Eosinophils% 1.1 % (0-5); Hematocrit 43.7 % (37-47); Hemoglobin 14.6 g/dL (12.0-15.0); Lymphocyte # 1.74 X10^3/ul (0.83-4.51); Lymphocyte % 28.2 % (19-41); Mean Corp Hgb Conc 33.4 g/dL (32-36); Mean Corpuscular Volume 86.7 fL (81-99); Mean Platelet Vol. 9.6 fl (6.2-12.0); Monocyte# 0.29 X10^3/uL; Monocyte% 4.7 % (0-10); NRBC Flagged by Analyzer 0 % (0-5); Neutrophil # 4.02 X10^3/uL (2.7-7.7); Neutrophil % 65.2 % (47-70); Platelet Count 233 K/mm3 (150-450); RBC Distribution Width CV 13.6 % (11.6-14.6); RBC Distribution Width SD 42.5 fl (35.1-43.9); Red Blood Count 5.04 M/mm3 (4.2-5.4); White Blood Count 6.2 K/mm3 (4.4-11.0)
--- NOTE | 2024-06-06 11:00 | RAD_ITS ---
STUDY: X-RAY CHEST REASON FOR EXAM: Female, 64 years old. Cough and dyspnea. TECHNIQUE: Single AP portable view of the chest. COMPARISON: None. FINDINGS: The lungs are clear and expanded. There is no demonstrated pleural abnormality. Normal size heart. Normal mediastinum and macie. Normal visualized pulmonary arteries. There is atherosclerotic calcification of the aortic arch with tortuosity. There is a mild dextroscoliosis of the thoracic spine. Normal visualized ribs, clavicles, and shoulders. There is no demonstrated abnormality of the visualized soft tissue structures of the upper abdomen. RAD/Chest 1 View (Portable) IMPRESSION: No acute abnormality is seen. Electronically Signed: Luiz Crain MD at 11:53 EST ,
[2024-06-06 11:10] VITALS: O2SAT 97
[2024-06-06 11:27] LABS: ALB/GLOB Ratio 0.8 RATIO (0.9-2.4); AST(SGOT) 10 U/L (15-37); Alanine Aminotransfer ALT/SGPT 18 U/L (13-56); Albumin, Serum 3.3 g/dL (3.2-5.0); Alkaline Phosphatase 120 U/L (45-117); Anion Gap 7 (5-15); BUN 9 mg/dL (7-18); BUN/Creat Ratio 12.7 RATIO (10-20); Calcium,Total 9.1 mg/dL (8.5-10.1); Chloride 106 mmol/L (98-107); Creatinine, Serum 0.71 mg/dL (0.55-1.02); EST Glomerular Filtration Rate 89 mL/min (>60); Est Glom Filt Rate - Afr Amer 108 mL/min (>60); Estimated Creatinine Clearance 67.96 ml/min; Glucose 204 mg/dL (74-106); Lipase 23 U/L (13-75); Potassium 3.2 mmol/L (3.5-5.1); Protein, Total 7.3 g/dL (6.4-8.2); Sodium Level 141 mmol/L (136-145); Troponin-I HS 26 pg/mL (3.0-54.0)
[2024-06-06 12:23] VITALS: BP 124/88; PULSE 79; RESP 16; TEMP 36.9; O2SAT 98
== END 2024-06-06 12:29 | disposition home or self-care (01) ==
PROVIDERS: Emergency Provider Emergency Medicine; PCP Family Medicine; Visit Provider Emergency Medicine
DX: U07.1 COVID-19 (principal); E11.9 Type 2 diabetes mellitus without complications; Z79.4 Long term (current) use of insulin; I10 Essential (primary) hypertension; B34.9 Viral infection, unspecified; Z79.84 Long term (current) use of oral hypoglycemic drugs
CPT/HCPCS: 71045; 80053; 83690; 84484; 85025; 87631; 93005; 99284

== ENCOUNTER 2024-12-07 12:31 | Emergency (ER) | payer MEDICAID, SELFPAY ==
[2024-12-07] VITALS (8 sets, daily range): BP systolic 100–134; BP diastolic 74–90; PULSE 76–105; RESP 16–18; TEMP 37; O2SAT 97–99; BMI 21.6
--- NOTE | 2024-12-07 13:04 | EKG12_ITS ---
Test Reason : SOB Blood Pressure : */* mmHG Vent. Rate : 81 BPM Atrial Rate : 81 BPM P-R Int : 132 ms QRS Dur : 70 ms QT Int : 378 ms P-R-T Axes : 61 -10 57 degrees QTcB Int : 439 ms Normal sinus rhythm with sinus arrhythmia Nonspecific ST abnormality Abnormal ECG Confirmed by GRANT WATERS, FABIOLA ([id number]), story editor IGOR STOREY ([id number]) on 12/10/2024 8:31:27 AM Referred By: Confirmed By: FABIOLA BURNS MD
[2024-12-07] MEDS: 0.9% Normal Saline (1000mL) 1,000 ML 999 ML IV (13:24)
[2024-12-07 13:38] LABS: Hematocrit 43.0 % (37-47); Hemoglobin 14.3 g/dL (12.0-15.0); Immature Granulocytes Count 0.010 X10^3/uL (0.0-0.0); Mean Corp Hgb Conc 33.3 g/dL (32-36); Mean Corpuscular Volume 85.8 fL (81-99); Mean Platelet Vol. 9.8 fl (6.2-12.0); NRBC Flagged by Analyzer 0 % (0-5); Platelet Count 220 K/mm3 (150-450); RBC Distribution Width CV 13.3 % (11.6-14.6); RBC Distribution Width SD 41.9 fl (35.1-43.9); Red Blood Count 5.01 M/mm3 (4.2-5.4); White Blood Count 4.4 K/mm3 (4.4-11.0)
[2024-12-07 13:42] LABS: Partial Thromboplast Time 26.3 Seconds (24.1-36.2); Prothrombin Time (Protime)PT. 13.4 SECONDS (11.7-14.9)
--- NOTE | 2024-12-07 13:49 | RAD_ITS ---
PROCEDURE: CHEST PA AND LATERAL 12/07/2024 REASON FOR EXAM: CHEST PAIN TECHNIQUE: CHEST PA AND LATERAL FINDINGS: The heart is normal in size. The lungs are clear. No acute osseous abnormalities. RAD/Chest PA and Lateral IMPRESSION: No acute cardiopulmonary abnormalities. Reading Location: [id number]
--- NOTE | 2024-12-07 14:00 | EX.ED.DYSGE1 ---
HPI History of Present Illness Chief Complaint: Shortness of Breath Narrative Narrative: Patient 64-year-old female with past medical history of hypertension, diabetes, tobacco use who presents to the emergency department chief complaint shortness of breath. Patient states that the past few days she is shortness of breath and states that she is out of her inhaler. States that nothing really makes her shortness of breath better or worse. States that she does have a cough and is coughing up some sputum. Patient denies any fevers denies any sick contacts. Patient denies any recent travels denies any history of blood clots. [facility] Medical History (Updated 12/07/24 @ 15:[address] Yfn Alvarado, DO) Diabetes HTN (hypertension) Neck pain Arthritis Home Medications Medication Instructions Recorded Last Taken Type ibuprofen 600 mg tablet 600 mg PO Q6H PRN PRN pain #20 tabs 01/20/22 Unknown Rx insulin glargine 100 unit/mL (3 26 unit subcut QHS 12/30/22 Unknown History mL) subcutaneous pen (Lantus Solostar U-100 Insulin) metformin 500 mg tablet,extended 500 mg PO DAILY 12/30/22 Unknown History release 24 hr methocarbamol 500 mg tablet See Rx Instructions .Route 12/31/22 Unknown Rx .COMPLEX #56 tabs amoxicillin 875 mg-potassium 875 mg PO Q12H #20 TABLETS 04/13/24 Unknown Rx clavulanate 125 mg tablet omeprazole 20 mg capsule,delayed 20 mg PO 04/13/24 Unknown History release pioglitazone 15 mg tablet 15 mg PO DAILY 04/13/24 Unknown History metoclopramide HCl 5 mg tablet 5 mg PO Q6H PRN nausea and 06/06/24 Unknown Rx (Reglan) vomiting #10 tabs albuterol sulfate 90 mcg/actuation 2 puff inhalation Q6H PRN 12/07/24 Unknown Rx aerosol inhaler (Ventolin HFA) shortness of breath or wheezing #8.5 grams doxycycline hyclate 100 mg capsule 100 mg PO BID 5 days #10 caps 12/07/24 Unknown Rx prednisone 50 mg tablet 50 mg PO DAILY 5 days #5 tabs 12/07/24 Unknown Rx Allergy/AdvReac Type Severity Reaction Status Date / Time No Known Allergies Allergy Verified 12/07/24 12:33 Family History Father Cancer Sister Diabetes Social History Smoking Status: Light Smoker (<10/day) alcohol intake: never ROS ROS ED ROS Narrative Constitutional: Denies headache, fever, chills, Eyes: Denies change in vision double vision blurry vision Cardiovascular: Denies chest pain or palpitations Respiratory: Complains of cough and shortness of breath as noted above Abdomen: Denies abdominal pain nausea vomit diarrhea : Denies urinary symptoms Neurological: Denies any numbness, weakness, tingling Musculoskeletal: Denies back pain Skin: Denies any rashes or lesions EXAM Physical Exam Narrative Exam Narrative: General: Patient was lying in bed rest comfortably did not appear to be in acute distress Head: Atraumatic, no cephalic Eyes: PERRL bilaterally, EOMI bilateral, no conjunctival injection noted Neck: Soft, supple, trachea midline Cardiovascular: Regular rate and rhythm no murmurs gallops rubs noted Respiratory: Clear to auscultation bilaterally no rales rhonchi or wheezes noted Abdomen: Soft, nondistended, nontender to palpation Extremities: +5/5 strength noted in the bilateral upper and lower extremities, radial pulses +2/4 in bilateral extremities Neurological: Patient follow commands knew that she was at [facility] year is 2024 Skin: Warm, dry, tact no rashes or lesions noted Const Vital Signs: 12/07/24 12:31 12/07/24 13:22 12/07/24 13:25 Temperature 98.6 F Temperature Source Oral Pulse Rate 105 H 84 Respiratory Rate 18 17 Respiratory Effort Respiratory Depth Respiratory Pattern Blood Pressure 123/77 H 121/83 H Blood Pressure Mean 92 95 Pulse Ox 99 98 Oxygen Delivery Method Room Air Room Air Room Air 12/07/24 13:26 12/07/24 14:00 12/07/24 14:46 Temperature Temperature Source Pulse Rate 78 76 Respiratory Rate 16 16 Respiratory Effort Normal Non-Labored Respiratory Depth Normal Respiratory Pattern Normal Blood Pressure 100/90 H 122/74 H Blood Pressure Mean 93 90 Pulse Ox 98 97 Oxygen Delivery Method Room Air Room Air Room Air MDM MDM MDM Narrative Medical decision making narrative: Patient is a 64-year-old female who presents to the emerged part with chief complaint of cough and shortness of breath. On the differential diagnosis includes but not limited to upper resp infection secondary viral etiology, pneumonia, COPD exacerbation, ACS. Once workup is obtained reviewed she will be reevaluated. Patient CBC reviewed and showed no evidence leukocytosis white blood count 4.4, hemoglobin 14.3, plate count of 220. Patient INR normal at 1, PT of 13.4. Patient sodium was 141, potassium normal 3.4, creatinine was 0.74. Patient AST and ALT are 24 and 24 respectively. Patient lipase normal at 30. Patient's chest x-ray reviewed by himself by radiology showed no acute cardiopulmonary processes. Patient's EKG reviewed and showed sinus rhythm with a rate of 81 bpm. Patient ambulated well here in the emergency department and she would like to go home at this point in time. Patient will be given prescription for albuterol inhaler as she is out of this she will be placed on steroids for the next 5 days and given a short course of doxycycline as she has had increased sputum production and she has been smoking for many years and likely has underlying COPD. She was encouraged to follow-up with her doctor in outpatient setting and return with worsening symptoms or concerns. She is agreeable spinal pressure concerns answered she was discharged home in stable condition. Lab Data Labs: Laboratory Results - last 24 hr 12/07/24 13:20 WBC 4.4 RBC 5.01 Hgb 14.3 Hct 43.0 MCV 85.8 MCH 28.5 MCHC 33.3 RDW Std Deviation 41.9 RDW Coeff of [place] 13.3 Plt Count 220 MPV 9.8 Immature Gran % (Auto) 0.200 Neut % (Auto) 58.4 Lymph % (Auto) 32.6 [place] % (Auto) 7.7 Eos % (Auto) 0.9 Baso % (Auto) 0.2 Absolute Neuts (auto) 2.6 Absolute Lymphs (auto) 1.43 Nucleated RBC % 0 PT 13.4 INR 1.0 APTT 26.3 Sodium 141 Potassium 3.4 Chloride 104 Carbon Dioxide 23.6 Anion Gap 13 BUN 15 Creatinine 0.74 Estim Creat Clear Calc 65.20 Est GFR (MDRD) Non-Af 91 BUN/Creatinine Ratio 19.5 Glucose 209 H Calcium 9.5 Total Bilirubin 0.32 AST 24 ALT 24 Alkaline Phosphatase 157 H Total Protein 7.1 Albumin 3.9 Globulin 3.2 Albumin/Globulin Ratio 1.2 Lipase 30 Radiography Diagnostic Testing: Clinical Impression(s) from Imaging Studies Chest X-Ray 12/07/24 13:49 IMPRESSION: No acute cardiopulmonary abnormalities. Reading Location: [facility] Discharge Plan Triage Chief Complaint: Shortness of Breath ED Provider: Yfn Alvarado Dx/Rx/DC Orders Clinical Impression: Cough, Shortness of breath, Tobacco use, Hypertension Prescriptions: New doxycycline hyclate 100 mg capsule 100 mg PO BID 5 Days Qty: 10 0RF albuterol sulfate [Ventolin HFA] 90 mcg/actuation HFA aerosol inhaler 2 puff inhalation Q6H PRN (Reason: shortness of breath or wheezing) Qty: 8.5 0RF prednisone 50 mg tablet 50 mg PO DAILY 5 Days Qty: 5 0RF No Action ibuprofen 600 mg tablet 600 mg PO Q6H PRN PRN (Reason: pain) Qty: 20 0RF metformin 500 mg tablet extended release 24 hr 500 mg PO DAILY Patient Comments: TAKE 4 TABLETS BY MOUTH DAILY WITH FOOD. insulin glargine [Lantus Solostar U-100 Insulin] 100 unit/mL (3 mL) insulin pen 26 unit SUBCUT QHS Patient Comments: INJECT 22 UNITS SUBCUTANEOUSLY DAILY AT BEDTIME. methocarbamol 500 mg tablet See Rx Instructions .ROUTE .COMPLEX Qty: 56 1RF Rx Instructions: 1 to 2 pills by mouth 4 times daily as needed muscle pain/spasm metoclopramide HCl [Reglan] 5 mg tablet 5 mg PO Q6H PRN (Reason: nausea and vomiting) Qty: 10 0RF pioglitazone 15 mg tablet 15 mg PO DAILY omeprazole 20 mg capsule,delayed release(DR/EC) 20 mg PO amoxicillin-pot clavulanate 875-125 mg tablet 875 mg PO Q12H Qty: 20 0RF Primary Care Provider: Lucio Simpson Referrals: Lucio Simpson MD [Primary Care Provider] - Activity Restrictions/Additional Instructions: Follow-up your doctor in outpatient setting. Use prescriptions as prescribed. Your blood work here did not show any acute findings and your chest x-ray is normal no evidence of pneumonia. Return with worsening symptoms or any other concerns Print Language: Cuban Disposition Disposition: Home, Self Care
[2024-12-07 14:12] LABS: AST(SGOT) 24 U/L (<=31); Alanine Aminotransfer ALT/SGPT 24 U/L (<=34); Albumin, Serum 3.9 g/dL (3.4-4.8); Alkaline Phosphatase 157 U/L (35-104); Anion Gap 13 (5-15); BUN 15 mg/dL (4-19); BUN/Creat Ratio 19.5 RATIO (10-20); Calcium,Total 9.5 mg/dL (7.6-11.0); Carbon Dioxide 23.6 mmol/L (21.0-32.0); Chloride 104 mmol/L (98-108); Estimated Creatinine Clearance 65.20 ml/min (50-250); Globulin 3.2 g/dL (2.2-4.2); Glucose 209 mg/dL (70-99); Lipase 30 U/L (13-75); Potassium 3.4 mmol/L (3.3-5.1)
== END 2024-12-07 16:02 | disposition home or self-care (01) ==
PROVIDERS: Emergency Provider Emergency Medicine; PCP Family Medicine; Visit Provider Emergency Medicine
DX: R06.02 Shortness of breath (principal); E11.9 Type 2 diabetes mellitus without complications; Z79.4 Long term (current) use of insulin; R05.9 Cough, unspecified; I10 Essential (primary) hypertension; Z79.84 Long term (current) use of oral hypoglycemic drugs; F17.200 Nicotine dependence, unspecified, uncomplicated
CPT/HCPCS: 71046; 80053; 83690; 85025; 85610; 85730; 93005; 96360; 99284